=== PATIENT | female | born 1950 | race Caucasian/White ===

== ENCOUNTER 2017-04-25 04:52 | Inpatient (IN) | payer MEDICAID, SELFPAY ==
[2017-04-25] VITALS (31 sets, daily range): BP systolic 107–151; BP diastolic 52–99; PULSE 84–102; RESP 18–32; TEMP 36.8–37.8; O2SAT 93–100; BMI 28.0; BMI 27.8; BMI 27.9
--- NOTE | 2017-04-25 05:05 | EKG12_ITS ---
Test Reason : CP Blood Pressure : / mmHG Vent. Rate : 098 BPM Atrial Rate : 098 BPM P-R Int : 132 ms QRS Dur : 098 ms QT Int : 354 ms P-R-T Axes : 024 020 049 degrees QTc Int : 451 ms Sinus rhythm with Premature supraventricular complexes and with occasional Premature ventricular comp lexes Nonspecific T wave abnormality Abnormal ECG Confirmed by EVA ANDRES ([id number]), copy editor CINDY KNUTSON ([id number] on 05/05/2017 1:36:09 PM Referred By: AL Confirmed By:EVA ANDRES
--- NOTE | 2017-04-25 05:05 | RAD_ITS ---
STUDY: X-RAY CHEST REASON FOR EXAM: Female, 66 years old. Increasing shortness of breath. Pedal edema. TECHNIQUE: AP portable chest. COMPARISON: None. FINDINGS: Mild to moderate cardiomegaly. Small bilateral pleural effusions. No focal infiltrates. No pneumothorax. Atherosclerotic calcification of the thoracic aorta. Pulmonary arteries are normal. Normal visualized thoracic spine. Normal visualized ribs, clavicles, and shoulders. There is no demonstrated abnormality of the visualized soft tissue structures of the upper abdomen. RAD/Chest 1 View (Portable) IMPRESSION: Cardiomegaly with small bilateral pleural effusions. Electronically Signed: Jorge Raya MD at 6:26 EST , Service support ,
--- NOTE | 2017-04-25 05:07 | ED.VISSUMM ---
- ER Visit Summary Date of Service: 04/25/17 Chief Complaint: [Weakness shortness of breath] History of Present Illness: The patient is a 66 F [who presents the emergency department with increasing weakness shortness of breath chest pain over the last year. She is also had increasing swelling in her extremities. She has not seen a doctor since 2004. Her sister states that she lives with her 87-year-old father and she has not left the house in the last 3 years. She believes her to be mentally incompetent how she ever she has not been able to get her declared as such. They could not get her to go to the doctor until this morning when she was very short of breath. She denies any bloody bowel movements or blood in the urine. She denies fevers or chills. She has been having exertional shortness of breath and chest pain for quite some time.] Physical Examination: [] Heart rate 102 respiratory rate 24 pulse ox 97% WN WD NAD PERRL EOMI pale conjunctive a MMM NECK supple and nontender, no masses Regular tachycardic rhythm no murmur rub or gallop, 2+ pitting edema of the lower extremities and 1+ pitting edema of the upper extremities, symmetric radial pulses CTAB no respiratory distress ABDOMEN is soft and nontender, normal bowel sounds, no distension, no rebound or guarding SKIN is warm and dry no rashes it is very pale Alert and Oriented x3, CN II-XII in tact, patient is diffusely weak No lymphadenopathy She has a flat affect Test Results: [] Emergency Department Course and Treatment: [Sinus rhythm with PVC no acute ischemic changes nonspecific ST-T wave changes. Hemoglobin is 3.2. Rectal shows no melena or bright red blood. Patient was typed and crossed for 4 units and ordered for 2 units of blood. Patient did have elevated TSH. She is very very weak. She will be admitted to the hospital for transfusion and workup of her anemia and treatment for her hypothyroid is does appear to be chronic as the symptoms have been worsening over the course of the year] Treatment Plan: [] Disposition: [Admit] Impression: [1. Chronic anemia 2. Hypothyroid 3. Weakness] This note was generated with [employer] software. It may contain incorrect words, spelling, and punctuation that were not noted in review of the chart prior to signing ED Disposition - Plan for ED Patient: Chief Complaint: Shortness of Breath
--- NOTE | 2017-04-25 05:08 | ED.RN ---
NO OLD EKG'S
--- NOTE | 2017-04-25 05:10 | ED.DCSUM_ITS ---
- ER Visit Summary Date of Service: 04/25/17 Chief Complaint: [Weakness shortness of breath] History of Present Illness: The patient is a 66 F [who presents the emergency department with increasing weakness shortness of breath chest pain over the last year. She is also had increasing swelling in her extremities. She has not seen a doctor since 2004. Her sister states that she lives with her 87-year -old father and she has not left the house in the last 3 years. She believes her to be mentally incompetent how she ever she has not been able to get her declared as such. They could not get her to go to the doctor until this morning when she was very short of breath. She denies any bloody bowel movements or blood in the urine. She denies fevers or chills. She has been having exertional shortness of breath and chest pain for quite some time.] Physical Examination: [] Heart rate 102 respiratory rate 24 pulse ox 97% WN WD NAD PERRL EOMI pale conjunctive a MMM NECK supple and nontender, no masses Regular tachycardic rhythm no murmur rub or gallop, 2+ pitting edema of the lower extremities and 1+ pitting edema of the upper extremities, symmetric radial pulses CTAB no respiratory distress ABDOMEN is soft and nontender, normal bowel sounds, no distension, no rebound or guarding SKIN is warm and dry no rashes it is very pale Alert and Oriented x3, CN II-XII in tact, patient is diffusely weak No lymphadenopathy She has a flat affect Test Results: [] Emergency Department Course and Treatment: [Sinus rhythm with PVC no acute ischemic changes nonspecific ST-T wave changes. Hemoglobin is 3.2. Rectal shows no melena or bright red blood. Patient was typed and crossed for 4 units and ordered for 2 units of blood. Patient did have elevated TSH. She is very very weak. She will be admitted to the hospital for transfusion and workup of her anemia and treatment for her hypothyroid is does appear to be chronic as the symptoms have been worsening over the course of the year] Treatment Plan: [] Disposition: [Admit] Impression: [1. Chronic anemia 2. Hypothyroid 3. Weakness] This note was generated with [employer] software. It may contain incorrect words, spelling, and punctuation that were not noted in review of the chart prior to signing ED Disposition - Plan for ED Patient: Chief Complaint: Shortness of Breath
--- NOTE | 2017-04-25 05:56 | ED.RN ---
DR TOLENTINO NOTIFIED OF HGB RESULTS
[2017-04-25 05:57] LABS: Hematocrit 12.3 % (37-47); Mean Corpuscular Volume 76.9 fL (81-99); Mean Platelet Vol. 8.7 fl (6.2-12.0); Neutrophil % 86.3 % (47-70); Platelet Count 396 K/mm3 (150-450); RBC Distribution Width CV 23.6 % (11.6-14.6); RBC Distribution Width SD 54.6 fl (35.1-43.9); White Blood Count 7.4 K/mm3 (4.4-11.0)
[2017-04-25 05:58] LABS: Absolute Lymphocyte Count 0.57 X10^3/ul (0.83-4.51); Absolute Neutrophil Count 6.4 X10^3/uL (2.0-7.7); Basophil# 0.01 X10^3/uL; Basophil% 0.1 % (0-1); Differential Indicated SCAN CRITERIA MET; Eosinophil# 0.04 X10^3/uL; Eosinophils% 0.5 % (0-5); Hemoglobin 3.2 g/dl (12.0-15.0); Lymphocyte # 0.57 X10^3/ul (4.0); Lymphocyte % 7.7 % (19-41); Monocyte# 0.39 X10^3/uL; Monocyte% 5.3 % (0-10); POSITIVE COUNT YES; POSITIVE DIFFERENTIAL YES; POSITIVE MORPHOLOGY YES
[2017-04-25 06:00] LABS: Bacteria 0 SEEN /hpf (None Seen); Mucous, Urine 0 SEEN /hpf (<or=2+); Red Blood Cells-Urine 0 SEEN /hpf (0-5); Squamous Epithelial Cells - UA 0 SEEN /hpf (5-10)
[2017-04-25 06:02] LABS: Color, Urine Yellow (Yellow); Glucose, Dipstick Normal (Normal); Ketone-Dipstick Negative (Negative); Leukocyte Esterase-Dipstick Negative /ul (Negative); Nitrite-Dipstick Negative (Negative); Occult Blood-Urine Negative /ul (Negative); Protein-Dipstick Negative (Negative); Specific Gravity, Urine 1.015 (1.002-1.030); Urine Bilirubin Dipstick Negative (Negative); Urine Clarity Clear (Clear); Urine Urobilinogen Normal (Normal)
--- NOTE | 2017-04-25 06:07 | ED.RN ---
PAGED DR. DORAN
[2017-04-25 06:17] LABS: International Normalized Ratio 1.6; Prothrombin Time (Protime)PT. 18.3 SECONDS (11.7-14.9)
[2017-04-25 06:21] LABS: White Blood Cells 0-5 SEEN /hpf (0-5)
[2017-04-25 06:22] LABS: Amorphous Sediment 2+
--- NOTE | 2017-04-25 06:29 | ED.RN ---
PCU SEVERE SYMPTOMATIC ANEMIA ESPINOZA
[2017-04-25 06:32] LABS: ALB/GLOB Ratio 0.9 RATIO (0.9-2.4); AST(SGOT) 19 U/L (15-37); Alanine Aminotransfer ALT/SGPT 29 U/L (12-78); Albumin, Serum 2.9 g/dL (3.4-5.0); Alkaline Phosphatase 115 U/L (45-117); Anion Gap 11 (5-15); BUN 23 mg/dL (7-18); BUN/Creat Ratio 21.3 RATIO (10-20); Calcium,Total 7.5 mg/dL (8.5-10.1); Chloride 109 mmol/L (98-107); Creatinine, Serum 1.08 mg/dL (0.55-1.02); EST Glomerular Filtration Rate 54 mL/min (>60); Est Glom Filt Rate - Afr Amer 65 mL/min (>60); Estimated Creatinine Clearance 49.83 ml/min; Globulin 3.2 g/dL (2.2-4.2); Glucose 102 mg/dL (70-110); Potassium 3.8 mmol/L (3.5-5.1); Protein, Total 6.1 g/dL (6.4-8.2); Sodium Level 140 mmol/L (136-145); Thyroid Stim Hormone (TSH) 8.74 uIU/mL (0.358-3.74)
[2017-04-25 07:06] LABS: Absolute Nucleated RBC Count 0.13 10^3/uL (0-5); Anisocytosis 2+; Differential Comment SCANNED; Hypochromasia 3+; NRBC Flagged by Analyzer 1.8 % (0-5); Platelet Estimate ADEQUATE (ADEQ); Platelet Morphology LARGE
--- NOTE | 2017-04-25 07:10 | PCM.HP.STD ---
Problem List (1) CHF (congestive heart failure) Status: Acute Qualifiers: Congestive heart failure type: systolic (2) Severe anemia Status: Chronic (3) Coagulopathy Status: Acute (4) Elevated TSH Status: Acute Comment: With a normal T4 (5) Iron deficiency Status: Chronic (6) Cardiomyopathy Status: Acute (7) Biatrial enlargement Status: Chronic Comment: Mild (8) Pulmonary hypertension Status: Acute Comment: Pulmonary artery systolic pressure estimated at 56.... (9) Tricuspid regurgitation Status: Acute Qualifiers: Cardiac valve disease etiology: nonrheumatic Qualified Code(s): I36.1 - Nonrheumatic tricuspid (valve) insufficiency (10) Mitral regurgitation Status: Acute Qualifiers: Cardiac valve disease etiology: nonrheumatic Qualified Code(s): I34.0 - Nonrheumatic mitral (valve) insufficiency History of Present Illness Date of Admission: 04/25/17 Chief Complaint: SOB/CP The patient is a 66 year old F who presented to the emergency department at [facility] on 04/25/2017 with complaints of increased weakness, shortness of breath and chest pain. The symptoms have been present for at least one year. She additionally complained of increased swelling in her extremities. She has not seen a doctor since 2004 and has never been admitted to [facility]. Her sister accompanied her and stated that the patient lives with her 87-year-old father and has not left the house in the past 3 years. She believes her to be mentally incompetent but has not been able to get her declared as such. She only agreed to go to the doctor because she was extremely short of breath. Vital signs at presentation to the emergency room were temp 98.3, blood pressure 134/73, pulse rate 98, respiratory rate 26 and she was 100% saturated on room air. Significant lab included a hemoglobin of 3.2 with an MCV of 76.9. White blood cell count was within normal limits. Reticulocyte count is not increased. PT was 18.3 with an INR of 1.6. Serum bicarb is low at 20 and the BUN was 23 with a creatinine of 1.08. TSH is 8.74. UA had 0-5 WBCs with no bacteria. Chest x-ray showed cardiomegaly with small bilateral pleural effusions. She denies hematemesis, rectal bleeding, large bruises, history of peptic ulcer disease. Also denies nausea. She does admit to pain in the right upper quadrant which has been present for quite some time. She states her stool is not normal but she denies having any black tarry stool. She has never had a colonoscopy. She denies weight loss. There is no family history of colon cancer. There is an extensive family history of cardiovascular disease. She states that she has chronic chest discomfort that does seem to get worse when she walks. Shortness of breath also increases with activity. 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 HISTORIC PRESERVATIONIST History: No pertinent HISTORIC PRESERVATIONIST history, - - She had menopause in her late 40s and has had no vaginal bleeding for several years. Lives: With Family Smoking Status: Never smoker Tobacco Use: Non-smoker Alcohol: None Drugs: None - *Family History Maternal History Items: Heart Disease Paternal History Items: Heart Disease Review of Systems Constitutional: Reports: - - She often feels cold. Denies: Chills, Fever, Weight Change Eyes: Denies: Blurred vision, Redness HEENT: Reports: Head Aches. Denies: Sinus Congestion, Sinus Drainage Cardiovascular: Reports: Chest Pain, Edema, Light Headedness, Paroxysmal Noc. Dyspnea Respiratory: Reports: Shortness of Breath, Shortness of breath at rest, Shortness of breath upon exertion. Denies: Cough, Hemoptysis Gastrointestinal: Reports: Abdominal Pain - Midepigastric to right upper quadrant, - - States her stool has changed but cannot further characterize. Denies: Diarrhea, Hematemesis, Hematochezia, Nausea, Melena, Vomiting Genitourinary: Denies: Dysuria Gynecological: Denies: Vaginal bleeding, Vaginal discharge Musculoskeletal: Reports: Arm Pain Skin: Denies: Rash, Wounds Neurological: Denies: Numbness, Tingling, Focal weakness Psychiatric: Denies: Anxiety, Depression, Homicidal Ideations, Suicidal Ideations Endocrine: Denies: Hx of Thyroiditis Hematologic/ Lymphatic: Denies: Hx of blood clot VTE Information - Inpt Only VTE Present on Admission: No VTE Mechan Device Prophylaxis: SCD's, Knee High LADARIUS Hose VTE Pharm Prophylaxis ordered?: No Reason prophylaxis not ordered:: Medical Contraindication - Severe anemia with coagulopathy Patient Problems: Active and Suspected Problems CHF (congestive heart failure) (Acute) Coagulopathy (Acute) Elevated TSH (Acute) With a normal T4 Cardiomyopathy (Acute) Pulmonary hypertension (Acute) Pulmonary artery systolic pressure estimated at 56.... Tricuspid regurgitation (Acute) Mitral regurgitation (Acute) - Physical Exam General: Alert, Oriented x3, Cooperative, No apparent distress, - - She is very pale HEENT: Atraumatic, PERRLA, EOMI, Normocephalic Oral: Moist Mucosa Neck: No Nodes, No Nuchal Rigidity, Trachea Midline, Carotid Bruit, Right, JVD, Bilateral Lungs: No rhonchi, No wheeze, Rales - She has rales in the left base and diminished breath sounds in the right base Cardiovascular: Regular rate, Regular Rhythm, Normal S1, Normal S2, Murmur - There is a 2/6 systolic murmur at the second right intercostal space radiating to the left ventricular outflow tract. She has a systolic murmur at the lower left sternal border and apex. There is a loud systolic MM in the left axillary area. Abdomen: Bowel Sounds Present - Not hyperactive, Soft, Non-Distended, Tender Extremities: No clubbing, No cyanosis, No Calf Tenderness, Diminished Peripheral Pulses, Edema Skin: No rashes, - - She has a resolving area of bruising on the right cheek. Musculoskeletal: No Muscle Wasting Neurological: Cranial nerves II-XII grossly intact, Neuro grossly intact, - - No focal neurologic deficits Psych/Mental Status: Normal Affect, Appropriate Vital Signs Temp Pulse Resp BP Pulse Ox 98.3 F 89 24 H 129/71 H 97 04/25/17 04:53 04/25/17 06:26 04/25/17 06:26 04/25/17 06:26 04/25/17 06:26 Assessment/Plan Active and Suspected Problems CHF (congestive heart failure) (Acute) Coagulopathy (Acute) Elevated TSH (Acute) With a normal T4 Cardiomyopathy (Acute) Pulmonary hypertension (Acute) Pulmonary artery systolic pressure estimated at 56.... Tricuspid regurgitation (Acute) Mitral regurgitation (Acute) Impressions 1. severe anemia - due to iron deficiency. Stool is Hemoccult negative 2. Acute systolic congestive heart failure. Echocardiogram shows a 47% ejection fraction. 3. 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 Reports that her mother always hid things and swept them under the carpet. When her mother 12 years ago everything escalated. May need placed in ECF. 4. Coagulopathy with a PT of 18.3 5. Elevated creatinine with a estimated creatinine clearance of 49 and GFR of 48-54. 6. MR, TR, moderate pulmonary hypertension, mild biatrial enlargement 7. Increased TSH with a normal T4 Transfuse to a HCT of at least 27. Lasix 40 mg IV every 8 hours Recheck a H&H and BMP 1 hour after the third unit of packed red blood cells has been administered Vitamin K 10 mg subcu Start sertraline 50 mg daily for anxiety/depression/suspected PTSD Start Aldactone 25 mg p.o. daily and lisinopril 2.5 mg twice daily Daily weights and accurate intake and output Recheck lab in the a.m. She is going to need endoscopy both upper and lower determine the source of chronic blood loss Consult Dr. Boone to participate in management Code Visit Inpatient E&M: [id number] Init Hosp L3
--- NOTE | 2017-04-25 07:54 | CON.PCM_ITS ---
Reason for Consult Date of Consultation: 04/25/17 Reason for Consultation: Blood loss anemia History of Present Illness: The patient is a 66-year-old female, with a history as outlined below, who presented to the emergency department on April 25 with generalized malaise, weakness and dyspnea. The patient has been lost to routine regular medical follow-up. She has essentially been a recluse, refusing to leave the home in which she resides for 3 years. The patient has no known prior cardiac history. She does not appear to be on any baseline medications as an outpatient. The patient's presenting symptoms have progressed over the course of the last year, which is the only reason why she agreed to come to the hospital for evaluation. On presentation to the emergency department, the patient was noted to be afebrile hemodynamically stable. She was maintaining appropriate oxygen saturations on room air. Initial laboratory evaluation revealed no evidence of a leukocytosis. However, the patient did have a notable hemoglobin and hematocrit of 3.2 and 12.3, respectively. Red blood cell indices were microcytic in nature. Chemistry profile revealed an elevated creatinine to 1.08. Troponin was negative. The patient did have an elevated BNP to 3463. TSH was elevated to 8.74 with a normal free T4 noted. Urinalysis was unremarkable. The patient underwent a type and screen with plans to transfuse packed red blood cells. She was subsequently admitted to the medical intensive care unit for ongoing management. Past Medical History Past Medical History (Chronic Problems): Chronic Problems Severe anemia (Chronic) Iron deficiency (Chronic) Biatrial enlargement (Chronic) Mild Allergies No Known Allergies Allergy (Verified 04/25/17 05:02) Home Medications: Ambulatory Orders Medication Instructions Recorded NK [NK] 04/25/17 Smoking Status: Never smoker - *Family History Maternal History Items: Heart Disease Paternal History Items: Heart Disease Review of Systems Constitutional: Reports: Malaise, Weakness, Fatigue Eyes: Denies: Blurred vision, Double vision HEENT: Denies: Head Aches, Sinus Congestion, Sinus Drainage Cardiovascular: Reports: Chest Pain, Edema Respiratory: Reports: Shortness of Breath. Denies: Cough, Sputum production Gastrointestinal: Reports: Abdominal Pain Genitourinary: Denies: Dysuria Musculoskeletal: Denies: Joint Pain, Joint Tenderness Skin: Denies: Rash, Wounds Neurological: Denies: Numbness, Tingling, Focal weakness Psychiatric: Denies: Anxiety, Depression, Homicidal Ideations, Suicidal Ideations Hematologic/ Lymphatic: Reports: Anemia. Denies: Easy Bruising, Easy Bleeding Patient Problems: Active and Suspected Problems CHF (congestive heart failure) (Acute) Coagulopathy (Acute) Elevated TSH (Acute) With a normal T4 Cardiomyopathy (Acute) Pulmonary hypertension (Acute) Pulmonary artery systolic pressure estimated at 56.... Tricuspid regurgitation (Acute) Mitral regurgitation (Acute) Objective: The patient's most recent lab work, culture data and imaging studies have all been personally reviewed. - Physical Exam General: Alert, Cooperative, No apparent distress, - - Pale in appearance. HEENT: Atraumatic, PERRLA, Normocephalic Oral: Moist Mucosa Neck: Supple, No Nodes, JVD, Bilateral Lungs: No rhonchi, No wheeze, Diminished, Rales Cardiovascular: Regular rate, Regular Rhythm, Normal S1, Normal S2, Murmur Abdomen: Bowel Sounds Present, Soft, Non-Distended, Tender Extremities: No clubbing, No cyanosis, Diminished Peripheral Pulses, Edema Skin: No rashes, No breakdown Musculoskeletal: No Tenderness to Palpation of Joints or Extremities Lymphatic: No Cervical, Supraclavicular, or Inguinal Adenopathy Neurological: Neuro grossly intact Vital Signs Temp Pulse Resp BP Pulse Ox 99.0 F 93 20 H 143/82 H 95 04/25/17 07:31 04/25/17 07:31 04/25/17 07:31 04/25/17 07:31 04/25/17 07:31 Oxygen Delivery Method Room Air Weight: 167 lb 8.821 oz Body Mass Index (BMI) 27.8 Laboratory Tests Past 24 Hrs 04/25/17 07:25 MRSA (PCR) Pending Labs (Last 48 Hours) 04/25/17 04/25/17 04/25/17 05:15 05:15 05:15 WBC 7.4 RBC 1.60 L Hgb 3.2 L* Hct 12.3 L MCV 76.9 L MCH 20.0 L MCHC 26.0 L RDW 23.6 H RDW Differential 54.6 H Plt Count 396 MPV 8.7 Immature Gran % (Auto) 0.100 Neut % (Auto) 86.3 H Lymph % (Auto) 7.7 L [place] % (Auto) 5.3 Eos % (Auto) 0.5 Baso % (Auto) 0.1 Absolute Neuts (auto) 6.4 Absolute Lymphs (auto) 0.57 L Total Counted Not Reportable Nucleated RBC % 1.8 Differential Comment SCANNED Diff Path Review May foll Platelet Estimate ADEQUATE Plt Morphology Comment LARGE Hypochromasia 3+ Anisocytosis 2+ Absolute Retic 0.13 PT 18.3 H INR 1.6 Sodium 140 Potassium 3.8 Chloride 109 H Carbon Dioxide 20.0 L Anion Gap 11 BUN 23 H Creatinine 1.08 H Estim Creat Clear Calc 49.83 Est GFR (MDRD) Af Amer 65 Est GFR (MDRD) Non-Af 54 L BUN/Creatinine Ratio 21.3 H Glucose 102 Calcium 7.5 L Phosphorus Magnesium Iron TIBC Iron Saturation Ferritin Total Bilirubin 0.70 AST 19 ALT 29 Alkaline Phosphatase 115 Troponin I 0.05 B-Natriuretic Peptide Total Protein 6.1 L Albumin 2.9 L Globulin 3.2 Albumin/Globulin Ratio 0.9 Vitamin B12 Folate TSH 8.74 H Free T4 Urine Color Urine Clarity Urine pH Ur Specific [place] Urine Protein Urine Glucose (UA) Urine Ketones Urine Occult Blood Urine Nitrite Urine Bilirubin Urine Urobilinogen Ur Leukocyte Esterase Urine RBC Urine WBC Ur Squamous Epith Cells Amorphous Sediment Urine Bacteria Urine Mucus MRSA (PCR) Blood Type Antibody Screen Crossmatch 04/25/17 04/25/17 04/25/17 05:15 05:54 07:25 WBC RBC Hgb Hct MCV MCH MCHC RDW RDW Differential Plt Count MPV Immature Gran % (Auto) Neut % (Auto) Lymph % (Auto) [place] % (Auto) Eos % (Auto) Baso % (Auto) Absolute Neuts (auto) Absolute Lymphs (auto) Total Counted Nucleated RBC % Differential Comment Diff Path Review Platelet Estimate Plt Morphology Comment Hypochromasia Anisocytosis Absolute Retic PT INR Sodium Potassium Chloride Carbon Dioxide Anion Gap BUN Creatinine Estim Creat Clear Calc Est GFR (MDRD) Af Amer Est GFR (MDRD) Non-Af BUN/Creatinine Ratio Glucose Calcium Phosphorus Magnesium Iron TIBC Iron Saturation Ferritin Total Bilirubin AST ALT Alkaline Phosphatase Troponin I B-Natriuretic Peptide Total Protein Albumin Globulin Albumin/Globulin Ratio Vitamin B12 Folate TSH Free T4 Urine Color Yellow Urine Clarity Clear Urine pH 5.0 Ur Specific [place] 1.015 Urine Protein Negative Urine Glucose (UA) Normal Urine Ketones Negative Urine Occult Blood Negative Urine Nitrite Negative Urine Bilirubin Negative Urine Urobilinogen Normal Ur Leukocyte Esterase Negative Urine RBC 0 SEEN Urine WBC 0-5 SEEN Ur Squamous Epith Cells 0 SEEN Amorphous Sediment 2+ Urine Bacteria 0 SEEN Urine Mucus 0 SEEN MRSA (PCR) Negative Blood Type O POSITIVE Antibody Screen NEGATIVE Crossmatch See Detail 04/25/17 04/25/17 04/25/17 07:55 07:55 07:55 WBC RBC Hgb Hct MCV MCH MCHC RDW RDW Differential Plt Count MPV Immature Gran % (Auto) Neut % (Auto) Lymph % (Auto) [place] % (Auto) Eos % (Auto) Baso % (Auto) Absolute Neuts (auto) Absolute Lymphs (auto) Total Counted Nucleated RBC % Differential Comment Diff Path Review Platelet Estimate Plt Morphology Comment Hypochromasia Anisocytosis Absolute Retic PT INR Sodium Potassium Chloride Carbon Dioxide Anion Gap BUN Creatinine Estim Creat Clear Calc Est GFR (MDRD) Af Amer Est GFR (MDRD) Non-Af BUN/Creatinine Ratio Glucose Calcium Phosphorus Magnesium 2.2 Iron 12 L TIBC 315 Iron Saturation 3.8 L Ferritin 6 L Total Bilirubin AST ALT Alkaline Phosphatase Troponin I 0.04 B-Natriuretic Peptide Total Protein Albumin Globulin Albumin/Globulin Ratio Vitamin B12 637 Folate 10.80 TSH Free T4 1.24 Urine Color Urine Clarity Urine pH Ur Specific [place] Urine Protein Urine Glucose (UA) Urine Ketones Urine Occult Blood Urine Nitrite Urine Bilirubin Urine Urobilinogen Ur Leukocyte Esterase Urine RBC Urine WBC Ur Squamous Epith Cells Amorphous Sediment Urine Bacteria Urine Mucus MRSA (PCR) Blood Type Antibody Screen Crossmatch 04/25/17 04/25/17 07:55 08:10 WBC RBC Hgb Hct MCV MCH MCHC RDW RDW Differential Plt Count MPV Immature Gran % (Auto) Neut % (Auto) Lymph % (Auto) [place] % (Auto) Eos % (Auto) Baso % (Auto) Absolute Neuts (auto) Absolute Lymphs (auto) Total Counted Nucleated RBC % Differential Comment Diff Path Review Platelet Estimate Plt Morphology Comment Hypochromasia Anisocytosis Absolute Retic PT INR Sodium Potassium Chloride Carbon Dioxide Anion Gap BUN Creatinine Estim Creat Clear Calc Est GFR (MDRD) Af Amer Est GFR (MDRD) Non-Af BUN/Creatinine Ratio Glucose Calcium Phosphorus 2.5 Magnesium Iron TIBC Iron Saturation Ferritin Total Bilirubin AST ALT Alkaline Phosphatase Troponin I B-Natriuretic Peptide 3463.3 H Total Protein Albumin Globulin Albumin/Globulin Ratio Vitamin B12 Folate TSH Free T4 Urine Color Urine Clarity Urine pH Ur Specific [place] Urine Protein Urine Glucose (UA) Urine Ketones Urine Occult Blood Urine Nitrite Urine Bilirubin Urine Urobilinogen Ur Leukocyte Esterase Urine RBC Urine WBC Ur Squamous Epith Cells Amorphous Sediment Urine Bacteria Urine Mucus MRSA (PCR) Blood Type Antibody Screen Crossmatch Microbiology 04/25/17 06:10 Stool Stool Occult Blood (OSORIO) - Final Clinical Impression(s) from Imaging Studies Chest X-Ray 04/25/17 05:05 IMPRESSION: Cardiomegaly with small bilateral pleural effusions. Electronically Signed: Jorge Raya MD at 6:26 EST , Service support , Assessment/Plan Active and Suspected Problems CHF (congestive heart failure) (Acute) Coagulopathy (Acute) Elevated TSH (Acute) With a normal T4 Cardiomyopathy (Acute) Pulmonary hypertension (Acute) Pulmonary artery systolic pressure estimated at 56.... Tricuspid regurgitation (Acute) Mitral regurgitation (Acute) RECOMMENDATIONS: 1. Transfuse packed red blood cells as ordered. Check CBC post transfusion. 2. Maintain appropriate IV access. 3. Agree with Lasix administration 4. Echocardiogram is pending 5. Encourage incentive spirometer use while in bed 6. Mobilize patient as tolerated. Physical therapy evaluation. IMPRESSIONS: 1. Iron deficiency anemia Potentially related to GI losses, likely chronic in nature. The patient has remained hemodynamically stable. There are plans to transfuse packed red blood cells accordingly. CBC will check posttransfusion. Outpatient GI follow-up will likely be indicated. Start Protonix p.o. daily 2. Concern for underlying decompensated heart failure The patient had a significantly elevated BNP and physical exam findings concerning for heart failure. She will be continued on Lasix in hopes of volume optimization. Echocardiogram will be obtained. 3. Suspected intellectual disability/mental health disorder The patient was started on sertraline. Will defer management to hospitalist. This note was generated with [employer] dictation software. It may contain incorrect words, spelling, and punctuation that were not noted in checking the note before signing. Code Visit Inpatient E&M: 43149 Init Hosp L3
--- NOTE | 2017-04-25 07:58 | ECHOD_ITS ---
Reason For Study: CHF Procedure This was a 2D Doppler, Color Flow transthoracic echocardiogram. Exam performed portable in ICU/CCU. Left Ventricle Normal LV size. Mild eccentric left ventricular hypertrophy. Mild global left ventricular systolic dysfunction. The estimated ejection fraction is 47 %. Right Ventricle Normal RV size. Normal systolic function. Atria The left atrium is mildly enlarged. The right atrium is mildly enlarged. Mitral Valve Normal mitral valve. Mild (1+) eccentric mitral valve insufficiency. Tricuspid Valve Normal tricuspid valve. Pulmonary artery systolic pressure is 56 mmHg. Moderate pulmonary hypertension. Mild to moderate (1-2+) tricuspid valve insufficiency. Aortic Valve Normal aortic valve. Trisinus/trileaflet aortic valve. Pulmonic Valve Normal pulmonic valve. Great Vessels Normal aortic root. The pulmonary artery is normal size. Normal inferior vena cava. Inferior vena cava collapse with sniff. Pericardium/Pleural Small pericardial effusion. There are no echocardiographic indications of cardiac tamponade. MMode/2D Measurements & Calculations LVIDd: 6.0 cm IVSd: 1.1 cm Ao root diam: 2.5 cm LVIDs: 5.2 cm LVPWd: 1.1 cm LA dimension: 3.9 cm RVDd: 3.8 cm FS: 14.0 % LAV(MOD-bp): 75.1 ml Aortic Valve Planimetry: 2.0 cm2 LA A4 area: 24.4 cm2 LAV(MOD-bp) Indexed: 41.0 ml/m2 LAV(MOD-sp2): 74.0 ml LAV(MOD-sp4): 75.0 ml RA A4 area: 25.5 cm2 Time Measurements MV dec time: 0.29 sec Doppler Measurements & Calculations MV E max naveed: 151.6 cm/sec MV V2 max: 188.8 cm/sec MV P1/2t max naveed: 190.0 cm/sec MV A max naveed: 127.0 cm/sec MV max P.3 mmHg MV P1/2t: 85.6 msec MV E/A: 1.2 MV V2 mean: 127.3 cm/sec MV dec slope: 650.5 cm/sec2 MV mean P.2 mmHg MVA(P1/2t): 2.6 cm2 MV V2 VTI: 47.7 cm Ao V2 max: 260.7 cm/sec LV V1 max: 174.1 cm/sec PA V2 max: 161.8 cm/sec Ao max P.2 mmHg LV V1 max P.1 mmHg Ao V2 mean: 177.2 cm/sec LV V1 mean P.4 mmHg Ao mean P.1 mmHg LV V1 mean: 105.5 cm/sec Ao V2 VTI: 42.4 cm LV V1 VTI: 29.7 cm TR max naveed: 358.9 cm/sec TR max P.5 mmHg Interpretation Summary Normal LV size. Mild global left ventricular systolic dysfunction. The estimated ejection fraction is 47 %. The left atrium is mildly enlarged. The right atrium is mildly enlarged. Mild (1+) eccentric mitral valve insufficiency. Mild to moderate (1-2+) tricuspid valve insufficiency. Moderate pulmonary hypertension. Small pericardial effusion. There are no echocardiographic indications of cardiac tamponade. Ordering Physician: Kym Brooke Referring Physician: Shira PCP Performed By: Tyler Mcgraw RCS
[2017-04-25] MEDS: Furosemide 40 MG/4 ML Vial IV ×3 (08:05→21:11)
[2017-04-25 08:40] LABS: Ferritin 6 ng/mL (8-252); Iron 12 ug/dL (50-170); Iron Binding Capacity,Total 315 ug/dL (250-450); Magnesium 2.2 mg/dL (1.8-2.4); PERCENT IRON SATURATION 3.8 % (15.0-55.0); T4 Free Direct 1.24 ng/dL (0.76-1.46)
[2017-04-25 08:42] LABS: Vitamin B12 637 pg/mL (211-911)
[2017-04-25 08:43] LABS: Phosphorus 2.5 mg/dL (2.5-4.9)
[2017-04-25] MEDS: Phytonadione (Vit K) 10 MG/ML Ampul SC (09:42)
[2017-04-25 09:50] LABS: M R Staph aureus DNA By PCR Negative (Negative); Probe Check PASS; Specimen Processing Control PASS
[2017-04-25] MEDS: Lisinopril 2.5 MG Tablet PO ×2 (12:37→21:12)
[2017-04-25] MEDS: Spironolactone 25 MG Tablet PO (12:37)
[2017-04-25] MEDS: 0.9% NaCl Peripheral Flush Adult/Peds IV ×2 (12:37→12:39)
[2017-04-25 12:53] LABS: Pathologist Review Reviewed
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
[2017-04-25] MEDS: Sertraline 50 MG Tablet PO (16:25)
[2017-04-25 18:40] LABS: Hematocrit 22.7 % (37-47); Hemoglobin 6.9 g/dl (12.0-15.0)
[2017-04-25 18:56] LABS: Anion Gap 9 (5-15); BUN 26 mg/dL (7-18); BUN/Creat Ratio 21.8 RATIO (10-20); Calcium,Total 7.6 mg/dL (8.5-10.1); Chloride 112 mmol/L (98-107); Creatinine, Serum 1.19 mg/dL (0.55-1.02); EST Glomerular Filtration Rate 48 mL/min (>60); Est Glom Filt Rate - Afr Amer 58 mL/min (>60); Estimated Creatinine Clearance 41.85 ml/min; Glucose 136 mg/dL (70-110); Potassium 3.6 mmol/L (3.5-5.1); Sodium Level 144 mmol/L (136-145)
[2017-04-25] MEDS: Acetaminophen 325 MG Tablet 650 MG PO (21:11)
[2017-04-26] VITALS (22 sets, daily range): BP systolic 100–139; BP diastolic 52–94; PULSE 53–92; RESP 15–26; TEMP 36.9–37.6; O2SAT 93–95
--- NOTE | 2017-04-26 04:57 | PCM.PN.INT ---
Subjective: The patient was seen and examined at the bedside this morning. Events from the last 24 hours have been reviewed. The patient is currently afebrile, hemodynamically stable and maintaining appropriate oxygen saturations on room air. The patient has received a total of 5 units of packed red blood cells to date. Repeat hemoglobin this morning was 8.8. Potassium is on the low side at 3.5. Phosphorus is also low at 2.4. The patient remains on IV Lasix 40 mg every 8 hours. Patient was overall net -340 mL's yesterday. She does report interval improvement in her breathing quality. She endorses only a mild degree of abdominal pain. Objective: The patient's most recent lab work, culture data and imaging studies have all been personally reviewed. Echocardiogram dated April 25 revealed mild global LV systolic dysfunction with an ejection fraction of 45%. Pulmonary artery systolic pressure was estimated to be 56 mmHg. Stool for occult blood was negative. Repeat plain film chest x-ray from this morning reveals largely unchanged from previous. General: Alert, Cooperative, No apparent distress HEENT: Atraumatic, PERRLA, Normocephalic Oral: Moist Mucosa Neck: Supple, No JVD, Trachea Midline Lungs: No rhonchi, No wheeze, Diminished, Rales Cardiovascular: Regular rate, Regular Rhythm, Normal S1, Normal S2, Murmur Abdomen: Bowel Sounds Present, Soft, Non Tender, Non-Distended Extremities: No clubbing, No cyanosis, Edema Skin: No rashes, No breakdown Lymphatic: No Cervical, Supraclavicular, or Inguinal Adenopathy Neurological: Neuro grossly intact Psych/Mental Status: Appropriate Vital Signs Temp Pulse Resp BP Pulse Ox 99.2 F H 90 23 H 131/90 H 93 04/26/17 02:00 04/26/17 02:00 04/26/17 02:00 04/26/17 02:00 04/26/17 02:00 Oxygen Delivery Method Room Air Weight: 167 lb 8.821 oz Body Mass Index (BMI) 27.8 Intake and Output for Last 24 Hours 04/24/17 04/25/17 04/26/17 23:59 23:59 23:59 Intake Total 2160 / 2160 960 / 960 Output Total 2500 / 2500 2500 / 2500 Balance -340 / -340 -1540 / -1540 Labs (Last 48 Hours) 04/25/17 04/25/17 04/25/17 07:25 07:55 07:55 Hgb Hct Sodium Potassium Chloride Carbon Dioxide Anion Gap BUN Creatinine Estim Creat Clear Calc Est GFR (MDRD) Af Amer Est GFR (MDRD) Non-Af BUN/Creatinine Ratio Glucose Calcium Phosphorus Magnesium Iron 12 L TIBC 315 Iron Saturation 3.8 L Ferritin 6 L Troponin I B-Natriuretic Peptide Vitamin B12 637 Folate 10.80 Free T4 1.24 MRSA (PCR) Negative 04/25/17 04/25/17 04/25/17 07:55 07:55 08:10 Hgb Hct Sodium Potassium Chloride Carbon Dioxide Anion Gap BUN Creatinine Estim Creat Clear Calc Est GFR (MDRD) Af Amer Est GFR (MDRD) Non-Af BUN/Creatinine Ratio Glucose Calcium Phosphorus 2.5 Magnesium 2.2 Iron TIBC Iron Saturation Ferritin Troponin I 0.04 B-Natriuretic Peptide 3463.3 H Vitamin B12 Folate Free T4 MRSA (PCR) 04/25/17 04/25/17 04/25/17 10:55 16:00 18:25 Hgb 6.9 L Hct 22.7 L Sodium Potassium Chloride Carbon Dioxide Anion Gap BUN Creatinine Estim Creat Clear Calc Est GFR (MDRD) Af Amer Est GFR (MDRD) Non-Af BUN/Creatinine Ratio Glucose Calcium Phosphorus Magnesium Iron TIBC Iron Saturation Ferritin Troponin I 0.05 0.04 B-Natriuretic Peptide Vitamin B12 Folate Free T4 MRSA (PCR) 04/25/17 04/25/17 18:25 18:35 Hgb Hct Sodium 144 Potassium 3.6 Chloride 112 H Carbon Dioxide 23.0 Anion Gap 9 BUN 26 H Creatinine 1.19 H Estim Creat Clear Calc 41.85 Est GFR (MDRD) Af Amer 58 L Est GFR (MDRD) Non-Af 48 L BUN/Creatinine Ratio 21.8 H Glucose 136 H Calcium 7.6 L Phosphorus Magnesium Iron TIBC Iron Saturation Ferritin Troponin I 0.05 B-Natriuretic Peptide Vitamin B12 Folate Free T4 MRSA (PCR) Clinical Impression(s) from Imaging Studies Chest X-Ray 04/25/17 05:05 IMPRESSION: Cardiomegaly with small bilateral pleural effusions. Electronically Signed: Jorge Raya MD at 6:26 EST , Service support , Assessment/Plan Active and Suspected Problems CHF (congestive heart failure) (Acute) Coagulopathy (Acute) Elevated TSH (Acute) With a normal T4 Cardiomyopathy (Acute) Pulmonary hypertension (Acute) Pulmonary artery systolic pressure estimated at 56.... Tricuspid regurgitation (Acute) Mitral regurgitation (Acute) RECOMMENDATIONS: 1. Monitor blood counts daily. No indication for transfusion at this time. Start iron repletion therapy 2. Maintain appropriate IV access. 3. Continue Lasix with plans to transition from IV to p.o. formulation 4. Encourage incentive spirometer use while in bed 5. Mobilize patient as tolerated. The patient is medically stable for physical therapy evaluation today. 6. Recommend disposition to ECF. 7. Continue PPI 8. Electrolyte repletion as indicated. 9. The patient is medically stable for transfer out of the ICU. IMPRESSIONS: 1. Iron deficiency anemia Potentially related to GI losses, likely chronic in nature. The patient has remained hemodynamically stable. To date, the patient has been transfused a total of 5 units of packed red blood cells. Appropriate incrementation in the patient's blood counts has been noted. Hemoglobin is noted to be 8.8 g/dL this morning. There is no indication for additional blood product administration at this time. Monitor CBC daily. Transfuse if hemoglobin drops below 7 g/dL. Would plan to continue the patient on empiric PPI. She will likely require outpatient GI follow-up. Start iron replacement therapy. 2. Decompensated systolic heart failure/pulmonary hypertension The patient had a significantly elevated BNP and physical exam findings concerning for heart failure. Echocardiogram confirmed evidence of underlying systolic dysfunction and pulmonary hypertension. She has been maintained on IV Lasix regimen over the last 24 hours. She is currently on room air. Would plan to transition the patient at this time to a p.o. Lasix regimen. 3. Hypokalemia/hypophosphatemia Electrolyte repletion is underway. Recheck level status post repletion. 4. Suspected intellectual disability/mental health disorder The patient was started on sertraline. Will defer management to hospitalist. This note was generated with [employer] dictation software. It may contain incorrect words, spelling, and punctuation that were not noted in checking the note before signing. Given the lack of ongoing ICU needs, will sign off. Please call with any additional questions. Code Visit Inpatient E&M: 58723 Subs Hosp L3
--- NOTE | 2017-04-26 05:55 | RAD_ITS ---
STUDY: X-RAY CHEST REASON FOR EXAM: Female, 66 years old. Shortness of breath. TECHNIQUE: Single AP portable view of the chest. COMPARISON: Comparison is made with prior study dated October 23, 2017. FINDINGS: EKG electrodes are seen. Persistent vascular congestion and mild CHF. Stable bibasilar atelectasis and/or infiltrates worse on the left side. Blunting of both costophrenic angles more prominent on the left side. There is moderate cardiac enlargement. Normal mediastinum and paulette. Normal visualized pulmonary arteries. There is atherosclerotic calcification of the aortic arch with tortuosity. There are diffuse degenerative changes of the visualized thoracic spine. Normal visualized ribs, clavicles, and shoulders. There is no demonstrated abnormality of the visualized soft tissue structures of the upper abdomen. RAD/Chest 1 View (Portable) IMPRESSION: Cardiomegaly. CHF. Bibasilar atelectasis and/or infiltrates worse at the left lung base with blunting of both costophrenic angles. There has been mild progression as compared to prior study. Electronically Signed: Duran Steven MD at 8:03 EST Tel [phone], Service support ,
[2017-04-26] MEDS: 0.9% NaCl Peripheral Flush Adult/Peds IV ×2 (06:41→08:48)
[2017-04-26] MEDS: Furosemide 40 MG/4 ML Vial IV ×2 (06:41→17:28)
[2017-04-26 07:07] LABS: Absolute Lymphocyte Count 0.61 X10^3/ul (0.83-4.51); Absolute Neutrophil Count 7.6 X10^3/uL (2.0-7.7); Basophil# 0.01 X10^3/uL; Basophil% 0.1 % (0-1); Eosinophil# 0.07 X10^3/uL; Eosinophils% 0.8 % (0-5); Hemoglobin 8.8 g/dl (12.0-15.0); International Normalized Ratio 1.5; Lymphocyte # 0.61 X10^3/ul (4.0); Lymphocyte % 6.9 % (19-41); Mean Corp Hgb Conc 31.4 g/gl (32-36); Mean Corpuscular Hgb 25.7 pg (27.0-32.0); Mean Corpuscular Volume 81.9 fL (81-99); Mean Platelet Vol. 9.4 fl (6.2-12.0); Monocyte# 0.56 X10^3/uL; Monocyte% 6.3 % (0-10); Neutrophil # 7.57 X10^3/uL (2.7-7.7); Neutrophil % 85.7 % (47-70); Platelet Count 284 K/mm3 (150-450); Prothrombin Time (Protime)PT. 17.1 SECONDS (11.7-14.9); RBC Distribution Width CV 18.4 % (11.6-14.6); RBC Distribution Width SD 55.1 fl (35.1-43.9); Red Blood Count 3.42 M/mm3 (4.2-5.4); White Blood Count 8.8 K/mm3 (4.4-11.0)
[2017-04-26 07:09] LABS: POSITIVE COUNT NO; POSITIVE DIFFERENTIAL NO; POSITIVE MORPHOLOGY NO
[2017-04-26 07:25] LABS: Anion Gap 9 (5-15); BUN 25 mg/dL (7-18); BUN/Creat Ratio 21.9 RATIO (10-20); Calcium,Total 7.1 mg/dL (8.5-10.1); Chloride 111 mmol/L (98-107); Cholesterol 67 mg/dL (200); Creatinine, Serum 1.14 mg/dL (0.55-1.02); EST Glomerular Filtration Rate 51 mL/min (>60); Est Glom Filt Rate - Afr Amer 61 mL/min (>60); Estimated Creatinine Clearance 43.68 ml/min; Glucose 98 mg/dL (70-110); High Density Lipoprotein 28 mg/dL; Phosphorus 2.4 mg/dL (2.5-4.9); Potassium 3.5 mmol/L (3.5-5.1); Sodium Level 144 mmol/L (136-145); Triglycerides 41 mg/dL; Very Low Density Lipoprotein 8 mg/dL (5-40)
--- NOTE | 2017-04-26 08:10 | PN_ITS ---
Patient Problems: Active and Suspected Problems CHF (congestive heart failure) (Acute) Coagulopathy (Acute) Elevated TSH (Acute) With a normal T4 Cardiomyopathy (Acute) Pulmonary hypertension (Acute) Pulmonary artery systolic pressure estimated at 56.... Tricuspid regurgitation (Acute) Mitral regurgitation (Acute) Subjective: All events of the past 24 hours of been reviewed. She was transfused with a total of 5 units of packed red blood cells since admission. Hemoglobin today is 8.8, up from 3.2 on 04/25/2017. T-max was 100.1?F on 04/25/2017. Current temp is 98.7. The low-grade elevation of temp is likely secondary to transfusions. Current blood pressure is 139/52 with a heart rate of 78 and she is 95% saturated on room air. Fluid balance since admission is Iron studies showed a low serum iron at 12 with a TIBC of 315 and a ferritin of 6. Phosphorus is low today at 2.4. Total cholesterol was 67 with an LDL of 31 and an HDL of 28. Echocardiogram showed mild global hypokinesis with an estimated ejection fraction of 47%. There was mild biatrial enlargement, +1 MR and 1-2+ TR. The PA pressure was estimated at 56 which is consistent with moderate pulmonary hypertension. The elevated pulmonary pressure may be secondary to the acute congestive heart failure. She states her shortness of breath is better today and the peripheral edema is certainly better. She is diuresing very well with Lasix. She denies dizziness/ lightheadedness, shortness of breath, chest pain. She is up in a chair and tolerating this well. Denies abdominal pain, nausea, diarrhea. Her headache from yesterday has resolved. Appetite is good. Patient states that she feels her father has dementia and thinks he needs a snf. She will consider assisted living and prefers to be somewhere where there are women her age. She denies ever being sexually abused. She will not tell me why she does not leave the house for the past 3 years. She says that she is depressed and tells me that with everything that is going on in the world depression is expected. - Physical Exam General: Alert, Oriented x3, Cooperative, No apparent distress, - - She has better color in her face today HEENT: Atraumatic, PERRLA, EOMI Oral: Moist Mucosa Neck: Supple, No JVD Lungs: Rales - in both bases.....better air exchange in the R base today but BS' s still diminished on the right compared to the left no wheezing Cardiovascular: Regular rate, Regular Rhythm, Normal S1, Normal S2, Murmur - softer today since she has been transfused.......likely the MR BENSON was louder due to anemia, No rub noted, No Gallop Abdomen: Bowel Sounds Present, Soft, Non Tender, Non-Distended Extremities: Edema - improving Skin: No rashes, No breakdown Neurological: Cranial nerves II-XII grossly intact, Neuro grossly intact Psych/Mental Status: Appropriate Vital Signs Temp Pulse Resp BP Pulse Ox 98.7 F 71 15 139/52 H 95 04/26/17 07:00 04/26/17 07:11 04/26/17 07:00 04/26/17 07:00 04/26/17 07:00 Oxygen Delivery Method Room Air Weight: 161 lb 6.054 oz Body Mass Index (BMI) 27.8 Intake and Output for Last 24 Hours 04/24/17 04/25/17 04/26/17 23:59 23:59 23:59 Intake Total 2160 / 2160 2485 / 2485 Output Total 2500 / 2500 4200 / 4200 Balance -340 / -340 -1715 / -1715 Laboratory Tests Past 24 Hrs 04/25/17 04/25/17 04/25/17 07:25 07:55 07:55 WBC RBC Hgb Hct MCV MCH MCHC RDW RDW Differential Plt Count MPV Immature Gran % (Auto) Neut % (Auto) Lymph % (Auto) Tyler % (Auto) Eos % (Auto) Baso % (Auto) Absolute Neuts (auto) Absolute Lymphs (auto) Total Counted PT INR Sodium Potassium Chloride Carbon Dioxide Anion Gap BUN Creatinine Estim Creat Clear Calc Est GFR (MDRD) Af Amer Est GFR (MDRD) Non-Af BUN/Creatinine Ratio Glucose Calcium Phosphorus Magnesium Iron 12 L TIBC 315 Iron Saturation 3.8 L Ferritin 6 L Troponin I B-Natriuretic Peptide Triglycerides Cholesterol LDL Cholesterol VLDL Cholesterol HDL Cholesterol Vitamin B12 637 Folate 10.80 Free T4 1.24 MRSA (PCR) Negative 04/25/17 04/25/17 04/25/17 07:55 07:55 08:10 WBC RBC Hgb Hct MCV MCH MCHC RDW RDW Differential Plt Count MPV Immature Gran % (Auto) Neut % (Auto) Lymph % (Auto) Tyler % (Auto) Eos % (Auto) Baso % (Auto) Absolute Neuts (auto) Absolute Lymphs (auto) Total Counted PT INR Sodium Potassium Chloride Carbon Dioxide Anion Gap BUN Creatinine Estim Creat Clear Calc Est GFR (MDRD) Af Amer Est GFR (MDRD) Non-Af BUN/Creatinine Ratio Glucose Calcium Phosphorus 2.5 Magnesium 2.2 Iron TIBC Iron Saturation Ferritin Troponin I 0.04 B-Natriuretic Peptide 3463.3 H Triglycerides Cholesterol LDL Cholesterol VLDL Cholesterol HDL Cholesterol Vitamin B12 Folate Free T4 MRSA (PCR) 04/25/17 04/25/17 04/25/17 10:55 16:00 18:25 WBC RBC Hgb 6.9 L Hct 22.7 L MCV MCH MCHC RDW RDW Differential Plt Count MPV Immature Gran % (Auto) Neut % (Auto) Lymph % (Auto) Tyler % (Auto) Eos % (Auto) Baso % (Auto) Absolute Neuts (auto) Absolute Lymphs (auto) Total Counted PT INR Sodium Potassium Chloride Carbon Dioxide Anion Gap BUN Creatinine Estim Creat Clear Calc Est GFR (MDRD) Af Amer Est GFR (MDRD) Non-Af BUN/Creatinine Ratio Glucose Calcium Phosphorus Magnesium Iron TIBC Iron Saturation Ferritin Troponin I 0.05 0.04 B-Natriuretic Peptide Triglycerides Cholesterol LDL Cholesterol VLDL Cholesterol HDL Cholesterol Vitamin B12 Folate Free T4 MRSA (PCR) 04/25/17 04/25/17 04/26/17 18:25 18:35 06:00 WBC 8.8 RBC 3.42 L Hgb 8.8 L Hct 28.0 L MCV 81.9 MCH 25.7 L MCHC 31.4 L RDW 18.4 H RDW Differential 55.1 H Plt Count 284 MPV 9.4 Immature Gran % (Auto) 0.200 Neut % (Auto) 85.7 H Lymph % (Auto) 6.9 L Tyler % (Auto) 6.3 Eos % (Auto) 0.8 Baso % (Auto) 0.1 Absolute Neuts (auto) 7.6 Absolute Lymphs (auto) 0.61 L Total Counted Not Reportable PT INR Sodium 144 Potassium 3.6 Chloride 112 H Carbon Dioxide 23.0 Anion Gap 9 BUN 26 H Creatinine 1.19 H Estim Creat Clear Calc 41.85 Est GFR (MDRD) Af Amer 58 L Est GFR (MDRD) Non-Af 48 L BUN/Creatinine Ratio 21.8 H Glucose 136 H Calcium 7.6 L Phosphorus Magnesium Iron TIBC Iron Saturation Ferritin Troponin I 0.05 B-Natriuretic Peptide Triglycerides Cholesterol LDL Cholesterol VLDL Cholesterol HDL Cholesterol Vitamin B12 Folate Free T4 MRSA (PCR) 04/26/17 04/26/17 06:00 06:00 WBC RBC Hgb Hct MCV MCH MCHC RDW RDW Differential Plt Count MPV Immature Gran % (Auto) Neut % (Auto) Lymph % (Auto) Tyler % (Auto) Eos % (Auto) Baso % (Auto) Absolute Neuts (auto) Absolute Lymphs (auto) Total Counted PT 17.1 H INR 1.5 Sodium 144 Potassium 3.5 Chloride 111 H Carbon Dioxide 24.0 Anion Gap 9 BUN 25 H Creatinine 1.14 H Estim Creat Clear Calc 43.68 Est GFR (MDRD) Af Amer 61 Est GFR (MDRD) Non-Af 51 L BUN/Creatinine Ratio 21.9 H Glucose 98 Calcium 7.1 L Phosphorus 2.4 L Magnesium 2.0 Iron TIBC Iron Saturation Ferritin Troponin I B-Natriuretic Peptide Triglycerides 41 Cholesterol 67 LDL Cholesterol 31 VLDL Cholesterol 8 HDL Cholesterol 28 L Vitamin B12 Folate Free T4 MRSA (PCR) Assessment/Plan Active and Suspected Problems CHF (congestive heart failure) (Acute) Coagulopathy (Acute) Elevated TSH (Acute) With a normal T4 Cardiomyopathy (Acute) Pulmonary hypertension (Acute) Pulmonary artery systolic pressure estimated at 56.... Tricuspid regurgitation (Acute) Mitral regurgitation (Acute) Impressions 1. severe anemia - due to iron deficiency. Stool is Hemoccult negative 2. Acute systolic congestive heart failure. Echocardiogram shows a 47% ejection fraction. 3. 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 Reports that her mother always hid things and swept them under the carpet. When her mother 12 years ago everything escalated. May need placed in ECF. 4. Coagulopathy with a PT of 18.3 somewhat better after vitamin K 5. Probable chronic renal failure stage III-suspect due to long-standing hypertension and noncompliance with medication 6. MR, TR, moderate pulmonary hypertension, mild biatrial enlargement 7. Increased TSH with a normal T4 8. Hypophosphatemia-supplementation ordered Will need a follow-up echocardiogram in 6 weeks following resolution of congestive heart failure to reassess for pulmonary hypertension Will need upper and lower endoscopy. Patient is agreeable to having Dr. Vesta Quintero perform endoscopy. Will consult Dr. Quintero. Start an iron supplement Recheck lab in the a.m. Transfer to [facility] today-no need for telemetry as she has had no significant ectopy even with very severe anemia. Continue Lasix 40 mg IV every 12 hours Continue potassium supplement twice daily Continue sertraline for depression Will discuss placement at discharge with the nursing home social worker Increase lisinopril to 5 mg twice daily for hypertension Code Visit Inpatient E&M: [id number] [facility] L3
[2017-04-26] MEDS: Lisinopril 5 MG Tablet PO ×2 (10:04→22:15)
[2017-04-26] MEDS: Pantoprazole Sodium 40 MG Tablet PO (10:04)
[2017-04-26] MEDS: Sertraline 50 MG Tablet PO (10:05)
--- NOTE | 2017-04-26 13:31 | CASEMGMT ---
SW called patient's sister Maribell to obtain information on their father's finances for the Medicaid application. She said she does not know as her brother is the one that manages their dad's finances. Her brother's name is Sergio Allan and his number is [phone]. JOAO told her patient agreed to fill out a Medicaid application and agreed to go to a jail if she continued to have problems walking. JOAO then called patient's brother Sergio. He was not comfortable giving SW his dad's financial information. He understands SW is trying to help patient, but he is done with situation. He said they have tried numerous times to help her and she refuses. He does not want his dad held responsible for patient's issues and her refusing help. He was very polite about it and just wanted to let SW know why. SW to complete Medicaid application without patient's dad's information. Rosi ROBB
[2017-04-26] MEDS: Famotidine 20 MG Tablet 40 MG PO (14:53)
[2017-04-26] MEDS: Ferrous Sulfate 325 MG Tablet PO (17:28)
--- NOTE | 2017-04-26 19:55 | PCM.CONS.B ---
- Consult Date of Consult: 04/26/17 - Reason for Consult Chief Complaint: severe anemia History of Present Illness: 66 y/o WF presents with severe anemia. Was feeling weak and having shortness of breath and some chest pain. The symptoms have been present for at least one year. She also complains of increased swelling in her extremities. Hemoglobin of 3.2 Also elevated BNP with signs of congestive heart failure, chest x-ray showed cardiomegaly with small bilateral pleural effusions. She denies hematemesis, rectal bleeding, large bruises, history of peptic ulcer disease. Also denies nausea. Has some midline lower abdominal tenderness upon my examination with complaint of pain there, unknown time Has had weight loss, unknown was 150# She has never had a colonoscopy. She denies weight loss. There is no family history of colon cancer. Past Medical History: congestive heart failure cardiomegaly elevated TSH with normal T4 cardiac valve disease Past Surgical History: excision of knot on neck at age 3 (thyroglossal duct cyst?) right finger traumatic amputation dental surgery 2002 Past Injuries: denies head injuries, denies history of fractures Medications: denies taking chronic medications Allergies: Has no known drug allergies Social history: TOB use denies ETOH use denies Lives with father Review of Systems: General - denies fevers Cardiovascular denies chest pain, denies history of heart attack Pulmonary denies shortness of breath, denies coughing up blood Gastrointestinal denies abdominal pain, denies blood in stools Neurological denies seizures, denies history of stroke Genitourinary denies burning with urination, denies blood in urine Hematological denies spontaneous/prolonged bleeding Skin denies open non healing wounds Musculoskeletal denies history of fractures Endocrine denies diabetes, denies thyroid problems Psychological possibility of agoraphobia - has not left house in 3 years, has fear of men Physical examination: Vital signs Temp 98.7 HR 83 RR 16 General WD/WN WF in no apparent distress, alert and orientedg HEENT Normocephalic. EOM intact with sclera clear and no icterus noted. Neck is supple with no jugular venous distention noted. Trachea is midline. Lungs clear to auscultation, normal breath sounds. No rales/rhonchi/wheezing noted. No labored breathing noted, such as retractions. Heart normal S1 and S2 auscultated. No rubs/clicks/murmurs noted. . Abdomen soft and benign. Patient does complain of tenderness in the lower midline area. Normal bowel sounds area auscultated. No abdominal bruits noted. Extremities no calf tenderness noted. No pitting edema noted. bilateral lower extremity dependent swelling Genitourinary/Rectal deferred Skin normal skin integrity. Neurological non focal. Psychological normal affect, patient is calm and appropriate Impression: severe anemia - rule out GI etiology Discussion/Plan: I have discussed the above with the patient. I have offered the patient the procedure of upper and lower endoscopy. I have explained to patient that this is to identify for a GI source of anemia. I have explained the procedures to the patient. I have counseled the patient as to the risks of the procedure, including but not limited to: infection, bleeding, perforation of the GI tract, inability to complete the colonoscopy, injury to any intraabdominal organs such as liver/spleen, complications of anesthesia, etc. - she understands. She agrees to proceed. Will plan tentatively on . I have answered all questions to the patients satisfaction and the patient has no further questions.
--- NOTE | 2017-04-26 20:04 | CON.PCM_ITS ---
- Consult Date of Consult: 04/26/17 - Reason for Consult Chief Complaint: severe anemia History of Present Illness: 66 y/o WF presents with severe anemia. Was feeling weak and having shortness of breath and some chest pain. The symptoms have been present for at least one year. She also complains of increased swelling in her extremities. Hemoglobin of 3.2 Also elevated BNP with signs of congestive heart failure, chest x-ray showed cardiomegaly with small bilateral pleural effusions. She denies hematemesis, rectal bleeding, large bruises, history of peptic ulcer disease. Also denies nausea. Has some midline lower abdominal tenderness upon my examination with complaint of pain there, unknown time Has had weight loss, unknown was 150# She has never had a colonoscopy. She denies weight loss. There is no family history of colon cancer. Past Medical History: congestive heart failure cardiomegaly elevated TSH with normal T4 cardiac valve disease Past Surgical History: excision of knot on neck at age 3 (thyroglossal duct cyst?) right finger traumatic amputation dental surgery 2002 Past Injuries: denies head injuries, denies history of fractures Medications: denies taking chronic medications Allergies: Has no known drug allergies Social history: TOB use denies ETOH use denies Lives with father Review of Systems: General - denies fevers Cardiovascular denies chest pain, denies history of heart attack Pulmonary denies shortness of breath, denies coughing up blood Gastrointestinal denies abdominal pain, denies blood in stools Neurological denies seizures, denies history of stroke Genitourinary denies burning with urination, denies blood in urine Hematological denies spontaneous/prolonged bleeding Skin denies open non healing wounds Musculoskeletal denies history of fractures Endocrine denies diabetes, denies thyroid problems Psychological possibility of agoraphobia - has not left house in 3 years, has fear of men Physical examination: Vital signs Temp 98.7 HR 83 RR 16 General WD/WN WF in no apparent distress, alert and orientedg HEENT Normocephalic. EOM intact with sclera clear and no icterus noted. Neck is supple with no jugular venous distention noted. Trachea is midline. Lungs clear to auscultation, normal breath sounds. No rales/rhonchi/ wheezing noted. No labored breathing noted, such as retractions. Heart normal S1 and S2 auscultated. No rubs/clicks/murmurs noted. . Abdomen soft and benign. Patient does complain of tenderness in the lower midline area. Normal bowel sounds area auscultated. No abdominal bruits noted. Extremities no calf tenderness noted. No pitting edema noted. bilateral lower extremity dependent swelling Genitourinary/Rectal deferred Skin normal skin integrity. Neurological non focal. Psychological normal affect, patient is calm and appropriate Impression: severe anemia - rule out GI etiology Discussion/Plan: I have discussed the above with the patient. I have offered the patient the procedure of upper and lower endoscopy. I have explained to patient that this is to identify for a GI source of anemia. I have explained the procedures to the patient. I have counseled the patient as to the risks of the procedure, including but not limited to: infection, bleeding, perforation of the GI tract, inability to complete the colonoscopy, injury to any intraabdominal organs such as liver/ spleen, complications of anesthesia, etc. - she understands. She agrees to proceed. Will plan tentatively on . I have answered all questions to the patient?s satisfaction and the patient has no further questions.
[2017-04-27] VITALS (10 sets, daily range): BP systolic 117–137; BP diastolic 70–86; PULSE 51–88; RESP 16–18; TEMP 36.6–36.9; O2SAT 93–97
[2017-04-27 06:33] LABS: Hematocrit 28.2 % (37-47); Hemoglobin 8.7 g/dl (12.0-15.0); Mean Corp Hgb Conc 30.9 g/gl (32-36); Mean Corpuscular Volume 84.4 fL (81-99); Mean Platelet Vol. 10.3 fl (6.2-12.0); Platelet Count 281 K/mm3 (150-450); RBC Distribution Width CV 19.6 % (11.6-14.6); RBC Distribution Width SD 57.9 fl (35.1-43.9); Red Blood Count 3.34 M/mm3 (4.2-5.4); White Blood Count 8.2 K/mm3 (4.4-11.0)
[2017-04-27 06:38] LABS: Scan Indicated on CBC? Y/N NO
[2017-04-27 06:54] LABS: Anion Gap 9 (5-15); BUN 28 mg/dL (7-18); BUN/Creat Ratio 27.5 RATIO (10-20); Calcium,Total 7.4 mg/dL (8.5-10.1); Chloride 109 mmol/L (98-107); Creatinine, Serum 1.02 mg/dL (0.55-1.02); EST Glomerular Filtration Rate 58 mL/min (>60); Est Glom Filt Rate - Afr Amer 70 mL/min (>60); Estimated Creatinine Clearance 48.82 ml/min; Glucose 93 mg/dL (70-110); Phosphorus 2.6 mg/dL (2.5-4.9); Sodium Level 144 mmol/L (136-145)
--- NOTE | 2017-04-27 07:18 | PCM.PN.SRG ---
Patient Problems: Active and Suspected Problems CHF (congestive heart failure) (Acute) Coagulopathy (Acute) Elevated TSH (Acute) With a normal T4 Cardiomyopathy (Acute) Pulmonary hypertension (Acute) Pulmonary artery systolic pressure estimated at 56.... Tricuspid regurgitation (Acute) Mitral regurgitation (Acute) Subjective: patient denies abdominal pain - Physical Exam General: Alert Oral: Moist Mucosa Abdomen: Soft, Non Tender Vital Signs Temp Pulse Resp BP Pulse Ox 98.4 F 51 L 16 117/81 H 94 04/27/17 04:36 04/27/17 04:36 04/27/17 04:36 04/27/17 04:36 04/27/17 04:36 Oxygen Delivery Method Room Air Weight: 69.9 kg Body Mass Index (BMI) 27.8 Intake and Output for Last 24 Hours 04/25/17 04/26/17 04/27/17 23:59 23:59 23:59 Intake Total 2160 / 2160 2925 / 2925 Output Total 2500 / 2500 7250 / 7250 4150 / 4150 Balance -340 / -340 -4325 / -4325 -4150 / -4150 Laboratory Tests Past 24 Hrs 04/26/17 04/27/17 04/27/17 06:00 05:40 05:40 WBC 8.2 RBC 3.34 L Hgb 8.7 L Hct 28.2 L MCV 84.4 MCH 26.0 L MCHC 30.9 L RDW 19.6 H RDW Differential 57.9 H Plt Count 281 MPV 10.3 Sodium 144 144 Potassium 3.5 4.0 Chloride 111 H 109 H Carbon Dioxide 24.0 26.0 Anion Gap 9 9 BUN 25 H 28 H Creatinine 1.14 H 1.02 Estim Creat Clear Calc 43.68 48.82 Est GFR (MDRD) Af Amer 61 70 Est GFR (MDRD) Non-Af 51 L 58 L BUN/Creatinine Ratio 21.9 H 27.5 H Glucose 98 93 Calcium 7.1 L 7.4 L Phosphorus 2.4 L 2.6 Magnesium 2.0 2.0 Triglycerides 41 Cholesterol 67 LDL Cholesterol 31 VLDL Cholesterol 8 HDL Cholesterol 28 L Assessment/Plan Active and Suspected Problems CHF (congestive heart failure) (Acute) Coagulopathy (Acute) Elevated TSH (Acute) With a normal T4 Cardiomyopathy (Acute) Pulmonary hypertension (Acute) Pulmonary artery systolic pressure estimated at 56.... Tricuspid regurgitation (Acute) Mitral regurgitation (Acute) Impression: severe anemia Plan: proceed to upper and lower endoscopy tomorrow has been on clear liquid diet and will start Golytely this evening. Patient counseled as to risks of procedure, including but not limited to: infection, bleeding, perforation of GI tract, inability to complete procedure, complications of anesthesia, etc - she understands and agrees to proceed.
[2017-04-27] MEDS: Ferrous Sulfate 325 MG Tablet PO ×2 (09:07→18:35)
[2017-04-27] MEDS: Sertraline 50 MG Tablet PO (09:07)
[2017-04-27] MEDS: 0.9% NaCl Peripheral Flush Adult/Peds IV ×2 (09:07→18:36)
[2017-04-27] MEDS: Lisinopril 5 MG Tablet PO ×2 (09:07→21:29)
[2017-04-27] MEDS: Furosemide 40 MG/4 ML Vial IV ×2 (09:07→18:35)
[2017-04-27] MEDS: Famotidine 20 MG Tablet 40 MG PO (09:07)
--- NOTE | 2017-04-27 10:03 | CASEMGMT ---
Addendum entered by Rosi Hernandez 04/27/17 11:04: SW received a return phone call from patient's brother. He said that their father no longer claims patient as a dependent. JOAO thanked him for the information. Rosi ROBB Original Note: JOAO spoke with Lupe from [facility]. She asked if patient's dad claims patient as a dependent on his taxes. She said if he does they will have to have his financials and if not they will not need it. JOAO called patient's brother and left him a message requesting a return call regarding this information. Await return call. Rosi ROBB
--- NOTE | 2017-04-27 14:13 | CASEMGMT ---
Addendum entered by Rosi Hernandez 04/27/17 15:17: [facility] plans on coming to see patient in the am. SW spoke with patient and told her this information. She was okay with this, but wanted SW to talk with her sister as this may be too far for her sister. SW called patient's sister and let her know that it is going to be difficult to find a place to take patient due to the pending Medicaid and a lot of facilities are full. JOAO explained SW made a referral to [facility] and [facility]. She asked where they were and SW told her. She said [facility] is too far, she would not visit patient. SW told her we may not have a choice as this may be the only place that will take patient. SW told her patient does not want to go to [place]. SW told her SW will talk with patient. SW then spoke with patient and she wanted information on [facility] and [facility]. SW gave her this information. SW to follow up with patient tomorrow on which facility. Rosi [employer] OFFICER Original Note: JOAO spoke with patient and she signed the Medicaid application. She said she did not have a preference for a penitentiary, but does not want to go to either of the facilities in [place] as she does not want to see anyone she went to school with. She said she would like a smaller facility. JOAO faxed Medicaid application to [facility]. JOAO then called [facility] and made a referral as well as faxed over information. JOAO also called [facility] with a referral and faxed information. Await response from [facility] and [facility]. Rosi [employer] OFF[employer]ER
--- NOTE | 2017-04-27 16:01 | PN_ITS ---
Patient Problems: Active and Suspected Problems CHF (congestive heart failure) (Acute) Coagulopathy (Acute) Elevated TSH (Acute) With a normal T4 Cardiomyopathy (Acute) Pulmonary hypertension (Acute) Pulmonary artery systolic pressure estimated at 56.... Tricuspid regurgitation (Acute) Mitral regurgitation (Acute) Colonic mass (Acute) Preop cardiovascular exam (Acute) Subjective: All events of the past 24 hours of been reviewed. She is afebrile. Vital signs are stable. She is 97% saturated on room air. Hemoglobin is stable at 8.7 following transfusion of 5 units of packed red blood cells. White blood cell count is normal today and sore the platelets. BUN is 28 and the creatinine is down to 1.02. - Physical Exam General: Alert, Oriented x3, Cooperative, No apparent distress HEENT: Atraumatic Oral: Moist Mucosa Neck: Supple Lungs: Clear to auscultation Cardiovascular: Regular rate, Regular Rhythm, Normal S1, Normal S2, No Gallop Abdomen: Bowel Sounds Present, Soft, Non Tender, Non-Distended, No Hepato- splenomegaly, - - no masses Skin: No rashes, No breakdown Vital Signs Temp Pulse Resp BP Pulse Ox 97.9 F 70 16 137/86 H 97 04/27/17 09:23 04/27/17 15:00 04/27/17 09:23 04/27/17 09:23 04/27/17 09:23 Oxygen Delivery Method Room Air Weight: 154 lb 1.65 oz Body Mass Index (BMI) 27.8 Intake and Output for Last 24 Hours 04/25/17 04/26/17 04/27/17 23:59 23:59 23:59 Intake Total 2160 / 2160 2925 / 2925 410 / 410 Output Total 2500 / 2500 9950 / 9950 4100 / 4100 Balance -340 / -340 -7025 / -7025 -3690 / -3690 Laboratory Tests Past 24 Hrs 04/27/17 04/27/17 05:40 05:40 WBC 8.2 RBC 3.34 L Hgb 8.7 L Hct 28.2 L MCV 84.4 MCH 26.0 L MCHC 30.9 L RDW 19.6 H RDW Differential 57.9 H Plt Count 281 MPV 10.3 Sodium 144 Potassium 4.0 Chloride 109 H Carbon Dioxide 26.0 Anion Gap 9 BUN 28 H Creatinine 1.02 Estim Creat Clear Calc 48.82 Est GFR (MDRD) Af Amer 70 Est GFR (MDRD) Non-Af 58 L BUN/Creatinine Ratio 27.5 H Glucose 93 Calcium 7.4 L Phosphorus 2.6 Magnesium 2.0 Assessment/Plan Active and Suspected Problems CHF (congestive heart failure) (Acute) Coagulopathy (Acute) Elevated TSH (Acute) With a normal T4 Cardiomyopathy (Acute) Pulmonary hypertension (Acute) Pulmonary artery systolic pressure estimated at 56.... Tricuspid regurgitation (Acute) Mitral regurgitation (Acute) Colonic mass (Acute) Preop cardiovascular exam (Acute) Impressions 1. severe anemia - due to iron deficiency. Stool Hemoccult negative. Right side colon CA on colonoscopy. Hemicolectomy 05/03/17 2. Acute systolic congestive heart failure. Echocardiogram shows a 47% ejection fraction. CHF multifactorial. Due to mildly decreased EF, malnutrition, HGB 3.2 and inability of the heart to meet the metabolic demands of the body 3. 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 Reports that her mother always hid things and swept them under the carpet. When her mother 12 years ago everything escalated. May need placed in ECF. 4. Coagulopathy with a PT of 18.3 somewhat better after vitamin K....due to malnutrition, corrected with Vitamin K 5. chronic renal failure stage III-suspect due to long-standing hypertension and noncompliance with medication 6. MR, TR, moderate pulmonary hypertension (56), mild biatrial enlargement 7. Increased TSH with a normal T4 8. Hypophosphatemia- resolved with supplementation EGD and colonoscopy tomorrow with Dr. Quintero. HGB is stable. Plan DC to SNF when ready. Code Visit Inpatient E&M: 13715 Subs Hosp L1
[2017-04-27] MEDS: Electrolyte Solution/Peg's 4000 ML 2000 ML PO (19:31)
[2017-04-28] VITALS (15 sets, daily range): BP systolic 97–132; BP diastolic 49–78; PULSE 63–91; RESP 16–18; TEMP 36.7–36.9; O2SAT 93–100; BMI 25.6; BMI 23.8
--- NOTE | 2017-04-28 | COLBX_PTH ---
PATIENT: MARISABEL MCHUGH LOC: [facility] U#:[id number] AGE/SX: 66/F ROOM: [facility] RE04/25/[address]: Dr. Thomas Dowling DO : 1950 BED: 1 DIS: 05/06/2017 SPEC #: [id number] RECD: 04/28/17 14:11 STATUS: [place] REQ #: [id number] SANDHYA: 04/28/17 00:[address]: Vesta Quintero DEPT: SURGICAL PATHOLOGY RECD BY: Bubba Reynolds ENTERED: 04/28/17 14:11 SP TYPE: COLON BX OTHR DR: DO Dr. Shawn Okeefe DO Dr. Nhan Luu, MD No Primary Care Phys Tissues: Right colon Procedures: Surgery Specimen Level IV Comments: @ Ordering doctor for SUIV edited from to @ by MICK at 04/28/17 1424 @ Submitting doctor edited from to DR.LWANG Thomas by MASTEROD at 04/28/17 1424 HEADER OPERATION: Colonoscopy PRE-OP DIAGNOSIS: Anemia TISSUE SUBMITTED: Right colon mass biopsy MICROSCOPIC DIAGNOSIS Right colon mass, biopsy: Invasive adenocarcinoma. CATHY:steven 04/29/17 COMMENT Case has been reviewed in consultation with Dr. Arroyo who concurs with the above diagnosis. IDC:AM MICROSCOPIC DESCRIPTION Slides are reviewed. GROSS DESCRIPTION Received in fixative is one container labeled with the patient's name and designated right colon mass biopsy. The specimen consists of multiple irregular fragments of light chiu soft tissue that in aggregate measure 1.5 x 0.3 x 0.1 cm. The specimen is totally submitted in one cassette. / CATHY:steven 04/28/17 TC:0 CPT: 76616
[2017-04-28] MEDS: Electrolyte Solution/Peg's 4000 ML 2000 ML PO (05:32)
--- NOTE | 2017-04-28 05:55 | EKG12_ITS ---
Test Reason : MORNING EKG Blood Pressure : / mmHG Vent. Rate : 065 BPM Atrial Rate : 065 BPM P-R Int : 140 ms QRS Dur : 092 ms QT Int : 424 ms P-R-T Axes : 012 042 104 degrees QTc Int : 440 ms Sinus rhythm with frequent Premature ventricular complexes Nonspecific T wave abnormality Abnormal ECG Confirmed by MICHELE PATTON, VIDAL ([id number]), news copy editor CINDY KNUTSON ([id number]) on 05/04/2017 11:32:42 AM Referred By: OWEN Confirmed By:VIDAL BAUTISTA MD
[2017-04-28 06:52] LABS: Anion Gap 9 (5-15); BUN 21 mg/dL (7-18); Calcium,Total 7.9 mg/dL (8.5-10.1); Chloride 105 mmol/L (98-107); EST Glomerular Filtration Rate 59 mL/min (>60); Est Glom Filt Rate - Afr Amer 71 mL/min (>60); Glucose 77 mg/dL (70-110); Sodium Level 142 mmol/L (136-145)
[2017-04-28 06:57] LABS: International Normalized Ratio 1.4; Prothrombin Time (Protime)PT. 16.4 SECONDS (11.7-14.9)
[2017-04-28 06:58] LABS: Partial Thromboplast Time 29.7 Seconds (24.1-36.2)
[2017-04-28 07:10] LABS: Absolute Lymphocyte Count 0.64 X10^3/ul (0.83-4.51); Absolute Neutrophil Count 5.4 X10^3/uL (2.0-7.7); Basophil# 0.03 X10^3/uL; Basophil% 0.4 % (0-1); Differential Indicated SCAN CRITERIA MET; Eosinophil# 0.09 X10^3/uL; Eosinophils% 1.3 % (0-5); Hematocrit 31.1 % (37-47); Hemoglobin 9.3 g/dl (12.0-15.0); Lymphocyte # 0.64 X10^3/ul (4.0); Lymphocyte % 9.6 % (19-41); Mean Corp Hgb Conc 29.9 g/gl (32-36); Mean Corpuscular Hgb 25.5 pg (27.0-32.0); Mean Corpuscular Volume 85.2 fL (81-99); Mean Platelet Vol. 9.6 fl (6.2-12.0); Monocyte# 0.51 X10^3/uL; Monocyte% 7.6 % (0-10); Neutrophil # 5.42 X10^3/uL (2.7-7.7); POSITIVE COUNT NO; POSITIVE DIFFERENTIAL NO; POSITIVE MORPHOLOGY YES; Platelet Count 269 K/mm3 (150-450); RBC Distribution Width CV 20.4 % (11.6-14.6); Red Blood Count 3.65 M/mm3 (4.2-5.4); White Blood Count 6.7 K/mm3 (4.4-11.0)
[2017-04-28 07:44] LABS: Platelet Estimate ADEQUATE (ADEQ)
[2017-04-28 07:45] LABS: Anisocytosis 2+; Hypochromasia 2+; Platelet Morphology LARGE; Polychromasia 1+; Schistocytes RARE
--- NOTE | 2017-04-28 09:19 | CASEMGMT ---
SW spoke with patient this am. She said she is not sure about going to either of the 2 SNF's in [place]. She was on the BSC so SW will check back with her. Rosi CASILLAS MSW
--- NOTE | 2017-04-28 09:32 | CASEMGMT ---
JOAO called patient's sister per her request to notify her of patient's test today. JOAO called Maribell and let her know patient is going for an upper and lower endoscopy today around noon. She said she will be by today sometime after 4p to drop off clothes for patient. Rosi CASILLAS MSW
--- NOTE | 2017-04-28 11:00 | NURSING ---
Pt to ENDO w/[facility].
--- NOTE | 2017-04-28 13:14 | CT_ITS ---
STUDY: CT CHEST WITH CONTRAST REASON FOR EXAM: Female, 66 years old. Newly diagnosed right colon cancer on scope today, anemia, extremity swelling. RADIATION DOSAGE (If Supplied By Facility): CTDIvol = ( 11.26 ) mGy, DLP = ( 765.79 ) mGycm TECHNIQUE: Transaxial imaging was performed following intravenous administration of 100mL ml of Isovue 300 contrast material. Individualized dose optimization techniques were used for this CT. COMPARISON: None. FINDINGS: Large bilateral pleural effusions. There is no pneumothorax. Lingular and left lower lobe pneumonia. Soft tissue edema. Normal heart and pericardium. There is mild cardiac enlargement. There is a small pericardial effusion. Normal mediastinum. Normal hilar regions. Normal pulmonary arteries. There is atherosclerotic calcification of the aortic arch with tortuosity and elongation of the aortic arch and descending thoracic aorta. There are multi-level degenerative changes of the thoracic spine. There is no demonstrated abnormality of the visualized upper abdomen. CT/Chest WITH Contrast IMPRESSION: There is a small pericardial effusion. Large bilateral pleural effusions. Lingular and left lower lobe pneumonia. Electronically Signed: Clive Cancino MD at 17:08 EST , Service support ,
--- NOTE | 2017-04-28 13:14 | CT_ITS ---
STUDY: CT ABDOMEN AND PELVIS WITH CONTRAST REASON FOR EXAM: Female, 66 years old. Newly diagnosed right colon cancer on scope today, anemia, extremity swelling. RADIATION DOSAGE (If Supplied By Facility): CTDIvol = ( 11.26 ) mGy, DLP = ( 765.79 ) mGycm TECHNIQUE: Transaxial images were obtained from the dome of the diaphragm to the symphysis pubis with oral contrast. 100mL ml of Isovue 300 contrast was administered. Sagittal and coronal images were reconstructed. Individualized dose optimization techniques were used for this CT. COMPARISON: None. FINDINGS: Large bilateral pleural effusions. The heart is enlarged. Normal liver. Normal gallbladder and extrahepatic biliary system. Normal spleen. Normal pancreas. Normal bilateral adrenal glands. Normal right kidney. Normal left kidney. Normal visualized stomach. Diffuse heterogeneous mass surrounding the cecum. There is mild nodularity and possible extension of the mass to the terminal ileum. There is non-visualization of the appendix. There are calcifications of the abdominal aorta and vascular structures. This is consistent for atherosclerotic disease. There is no abdominal aortic aneurysm. Normal inferior vena cava. Subcentimeter mesenteric lymph nodes. There is a Parks balloon catheter in the urinary bladder. There is a Parks balloon catheter in the urinary bladder. Diffuse soft tissue edema. Normal abdominal wall. There are degenerative changes of the osseous structures. CT/Abdomen/Pelvis WITH Contrast IMPRESSION: Diffuse heterogeneous mass surrounding the cecum. There is mild nodularity and possible extension of the mass to the terminal ileum. As noted in the history, this is concerning for neoplasm. Large bilateral pleural effusions. Diffuse soft tissue edema. Other findings as above. Electronically Signed: Clive Cancino MD at 17:06 EST , Service support ,
--- NOTE | 2017-04-28 14:14 | PCM.IMDPSTOP ---
Immediate Post-Op Note Date of Procedure: 04/28/17 Primary Surgeon/Physician: Vesta Quintero cloth desizing range tender: NOT,DEFINED Pre-Operative Diagnosis: anemia Post-Operative Diagnosis: right colon mass - probable cancer Surgery/Procedure Performed:: EGD, colonoscopy with biopsies Description of Surgical Findings:: EGD - no lesions seen, Colonoscopy - right cecal mass circumferential probably cancer Estimated Blood Loss: < 1 cc Specimen's removed: right colon mass biopsies Type of Anesthesia:: MAC ASA Class: ASA2 Mod Systematic Disease - Admit VTE Documentation VTE Present on Admission: Yes VTE Mechan Device Prophylaxis: SCD's
--- NOTE | 2017-04-28 14:17 | OP.PCM_ITS ---
Report of Operation Date of Procedure: 04/28/17 Pre-Operative Diagnosis: anemia Post-Operative Diagnosis: right colon mass - probable cancer Surgery/Procedure Performed:: EGD, colonoscopy with biopsies Description of Surgical Findings:: EGD - no lesions seen, Colonoscopy - right cecal mass circumferential probably cancer cable machine operator: NOT,DEFINED Type of Anesthesia:: MAC Anesthesiologist: Andrew Coker Specimen's removed: right colon mass biopsies Estimated Blood Loss (mL): < 1 cc Fluids Replaced: see anesthesia note Description of Procedure: After informed consent was given, the patient was brought to the endoscopy suite. Appropriate time out protocol was followed. She was then placed in the upright sitting position. Appropriate cardiac, blood pressure, and pulse oximetry monitoring was placed. After stable vital signs were noted, the patient was given intravenous conscious sedation. The posterior pharynx was sprayed with lidocaine spray times two and a bite block was placed. The upper endoscope was lubricated and inserted into the patient?s mouth and then carefully placed into the patient?s throat. The patient was asked to swallow and the endoscope was then easily advanced into the patient?s esophagus. The endoscope was further advanced down into the patient?s stomach, then past the pylorus, then past the duodenal bulb and then to the second portion of the duodenum. There were no lesions noted in the duodenum. The endoscope was then retracted back into the stomach. A retroflex view of the stomach revealed no evidence of any masses. No ulcers, no strictures, no suspicious lesions were noted. No evidence of bleeding was noted throughout. The endoscope was retracted into the esophagus, where any insufflated gas in the stomach was aspirated out. The gastroesophageal junction was measured at 38 cm from the patient?s teeth and appeared normal. The remainder of the esophagus was normal. The upper endoscope was removed intact. The colonoscopy as done next. The patient was then placed in the left lateral decubitis position. The colonoscope was lubricated and carefully inserted into the patient?s anus. It was then advanced into the rectum, then into the sigmoid colon, then into the left descending colon, past the splenic flexure, into the transverse colon, past the hepatic flexure, then down into the right descending colon. At the distal aspect of the right colon, there was a circumferential mass, that appeared friable and nodular - c/w colon cancer. Multiple biopsies were taken using cold grasper forceps. The colonoscopy was then retracted back and the remainder of the colon was examined. No other lesions/masses/ulcers were noted. The colonoscope was removed intact. Patient tolerated procedure. - Complications none noted - Admit VTE Documentation VTE Present on Admission: Yes VTE Mechan Device Prophylaxis: SCD's
[2017-04-28] MEDS: Furosemide 40 MG/4 ML Vial IV (15:47)
[2017-04-28] MEDS: 0.9% NaCl Peripheral Flush Adult/Peds IV (16:56)
[2017-04-28] MEDS: Ferrous Sulfate 325 MG Tablet PO (16:56)
[2017-04-28] MEDS: Famotidine 20 MG Tablet 40 MG PO (16:57)
[2017-04-28] MEDS: Lisinopril 5 MG Tablet PO ×2 (16:58→21:03)
[2017-04-28] MEDS: Sertraline 50 MG Tablet PO (16:58)
[2017-04-29] VITALS (12 sets, daily range): BP systolic 96–130; BP diastolic 54–83; PULSE 71–96; RESP 16–18; TEMP 36.7–37.2; O2SAT 93–96
--- NOTE | 2017-04-29 | FLU_PTH ---
PATIENT: MARISABEL MCHUGH LOC: [facility] U#:[id number] AGE/SX: 66/F ROOM: [facility] RE04/25/[address]: Dr. Thomas Dowling DO : 1950 BED: 1 DIS: 05/06/2017 SPEC #: [id number] RECD: 04/29/17 12:05 STATUS: [place] STEFFANY #: [id number] SANDHYA: 04/29/17 00:[address]: Darleen Brooke DEPT: CYTOLOGY RECD BY: Bubba Reynolds ENTERED: 04/29/17 12:05 SP TYPE: Fluid OTHR DR: DO Dr. Vesta Bentley MD Dr. Nhan Luu, MD Dr. Paul Moodispaw, MD No Primary Care Phys Tissues: THORACIC FLUID Procedures: Pap Stain (control) Special Stain Group II Surgery Specimen Level IV Cell Block Cytospin Fluid HEADER OPERATION: Ultrasound-guided left thoracentesis PRE-OP DIAGNOSIS: Left pleural effusion TISSUE SUBMITTED: Thoracentesis fluid for cytology DIAGNOSIS CYTOLOGY Thoracentesis fluid for cytology (cytospin and cell block): Negative for malignant cells. SJ:steven 05/02/17 COMMENT Case has been reviewed in consultation with Dr. Arroyo who concurs with the above diagnosis. IDC:AM CYTOLOGY STUDY Slides are reviewed. The specimen consists of macrophages, mesothelial cells and inflammatory cells. CYTOLOGY GROSS Received is 50 ml of yellow cloudy fluid labeled with the patient's name and and designated per the requisition as thoracentesis. Submitted for cytology preparation including cell block. 04/29/17 TC:5 CPT: 52090, 44294
--- NOTE | 2017-04-29 03:46 | US_ITS ---
PROCEDURE: ULTRASOUND GUIDED THORACENTESIS. DATE: April 29, 2017.. INDICATION: Female, 66 years old. Left pleural effusion. PHYSICIAN: Duran Steven M.D. PROCEDURE: The risks, benefits, and alternatives to the procedure were explained to the patient. The specific risks of bleeding, infection, and pneumothorax requiring chest tube insertion were discussed and accepted. Written informed consent was obtained. Ultrasonographic evaluation of the left lower pleural space was carried out. An adequate pocket was identified. The patient was placed in the sitting, upright position. The overlying skin was prepped and draped in sterile fashion. 1% lidocaine was administered subcutaneously for local anesthesia. Under ultrasound guidance, a 6 Portuguese thoracentesis needle/catheter system was advanced into the left posterior lower pleural fluid collection. Approximately 320 mL of saravanan-colored fluid was drained. The catheter was removed, and a sterile dressing was applied. A specimen was collected and sent to the laboratory for analysis, as requested by the referring clinician. The patient tolerated the procedure well. A chest x-ray was ordered. US/Thoracentesis W US IMPRESSION: Ultrasound-guided left thoracentesis. Electronically Signed: Duran Steven MD at 13:07 EST Tel [phone], Service support ,
[2017-04-29 06:34] LABS: Hematocrit 30.5 % (37-47); Hemoglobin 9.1 g/dl (12.0-15.0); Mean Corp Hgb Conc 29.8 g/gl (32-36); Mean Corpuscular Hgb 26.1 pg (27.0-32.0); Mean Corpuscular Volume 87.6 fL (81-99); Mean Platelet Vol. 10.8 fl (6.2-12.0); Platelet Count 307 K/mm3 (150-450); RBC Distribution Width CV 20.9 % (11.6-14.6); RBC Distribution Width SD 63.2 fl (35.1-43.9); Red Blood Count 3.48 M/mm3 (4.2-5.4); White Blood Count 7.9 K/mm3 (4.4-11.0)
[2017-04-29 06:39] LABS: Scan Indicated on CBC? Y/N YES- FLAGS NOTED
[2017-04-29 06:40] LABS: Anion Gap 7 (5-15); BUN 19 mg/dL (7-18); BUN/Creat Ratio 18.4 RATIO (10-20); Calcium,Total 7.6 mg/dL (8.5-10.1); Chloride 106 mmol/L (98-107); Creatinine, Serum 1.03 mg/dL (0.55-1.02); EST Glomerular Filtration Rate 57 mL/min (>60); Est Glom Filt Rate - Afr Amer 69 mL/min (>60); Estimated Creatinine Clearance 48.35 ml/min; Glucose 113 mg/dL (70-110); Potassium 3.9 mmol/L (3.5-5.1); Sodium Level 142 mmol/L (136-145)
[2017-04-29 07:16] LABS: Differential Comment SCAN
--- NOTE | 2017-04-29 07:58 | PN_ITS ---
Patient Problems: Active and Suspected Problems CHF (congestive heart failure) (Acute) Coagulopathy (Acute) Elevated TSH (Acute) With a normal T4 Cardiomyopathy (Acute) Pulmonary hypertension (Acute) Pulmonary artery systolic pressure estimated at 56.... Tricuspid regurgitation (Acute) Mitral regurgitation (Acute) Subjective: All events of the past 24 hours of been reviewed. She has been afebrile within 48 hours.. She is 93% saturated on room air and 94 % saturated on 2 L Vital signs are stable. Heart rate is in the 70-80s range Mood balance since admission is -15,021. EGD on 04/28/2017 was unremarkable but colonoscopy revealed tumor right colon. There was a diffuse heterogeneous mass surrounding the cecum mild nodularity and possible extension of the mass to the terminal ileum. There are large bilateral pleural effusions. CT chest shows a small pericardial effusion and large bilateral pleural effusions. There are infiltrates in the lingula and left lower lobe pneumonia ( vs compressive atelectasis) Lab was personally reviewed. White blood cell count is 7.9. It is stable at 9.1. Platelets are normal at 307,000. Electrolytes are normal today and the BUN is 19 with a creatinine of 1.03 which is improved since admission. Legionella and streptococcal antigens in the urine were negative. CEA is WNL I personally reviewed the CT chest and feel the pneumonia in the left base is actually compressive atelectasis. She has effusion sbut has been getting diuresed. The EF was 47% and the PA is 56. She is not coughing and is afebrile and the WBC is WNL. LFT's are normal - Physical Exam General: Alert, Oriented x3, Cooperative, No apparent distress, - - malnourished HEENT: Atraumatic, Normocephalic Oral: Dry Mucosa Neck: Supple, No Nuchal Rigidity, Trachea Midline Lungs: No wheeze, No rales, Diminished - in the R base. No rales, no coughing, no conversational dyspnea, not tachypneic. Cardiovascular: Regular rate, Regular Rhythm, Normal S1, Normal S2, Murmur - she has a systolic MM in the L axillary area. the loud systolic MM at the secon Abdomen: Bowel Sounds Present, Soft, Non Tender, Non-Distended, No Hepato- splenomegaly, - - no guarding with palpation Extremities: No clubbing, No cyanosis, Capillary Refill Less than 3 Seconds, No Calf Tenderness, Edema - she still has edema of the posterior thighs and the anterior tibial area, no flank edema today and the had edema has completely resolved. Skin: No rashes Musculoskeletal: Muscle Wasting Neurological: Cranial nerves II-XII grossly intact, Neuro grossly intact Psych/Mental Status: Appropriate - does not seem to understand the gravity of the diagnosis of colon CA.....more focused on what she can eat and where will she go post discharge. Vital Signs Temp Pulse Resp BP Pulse Ox 98.1 F 71 16 107/54 L 94 04/29/17 02:55 04/29/17 03:09 04/29/17 02:55 04/29/17 02:55 04/29/17 02:55 Oxygen Flow Rate 2 Oxygen Delivery Method Nasal Cannula Weight: 104 lb 15.04 oz Body Mass Index (BMI) 23.8 Intake and Output for Last 24 Hours 04/27/17 04/28/17 04/29/17 23:59 23:59 23:59 Intake Total 2780 / 2780 1580 / 1580 134 / 134 Output Total 8050 / 8050 3725 / 3725 375 / 375 Balance -5270 / -5270 -2145 / -2145 -241 / -241 Microbiology Past 72 Hours 04/29/17 06:00 Streptococcus pneumoniae Antigen (M - Final Interface Orders 04/29/17 06:00 Legionella Antigen - Final Interface Orders Laboratory Tests Past 24 Hrs 04/25/17 04/28/17 04/29/17 07:55 05:40 05:30 WBC 7.9 RBC 3.48 L Hgb 9.1 L Hct 30.5 L MCV 87.6 MCH 26.1 L MCHC 29.8 L RDW 20.9 H RDW Differential 63.2 H Plt Count 307 MPV 10.8 Total Counted Not Reportable Differential Comment SCAN Platelet Estimate ADEQUATE Plt Morphology Comment LARGE Polychromasia 1+ Hypochromasia 2+ Anisocytosis 2+ Schistocytes RARE Sodium Potassium Chloride Carbon Dioxide Anion Gap BUN Creatinine Estim Creat Clear Calc Est GFR (MDRD) Af Amer Est GFR (MDRD) Non-Af BUN/Creatinine Ratio Glucose Calcium Carcinoembryonic Ag Pending 04/29/17 05:30 WBC RBC Hgb Hct MCV MCH MCHC RDW RDW Differential Plt Count MPV Total Counted Differential Comment Platelet Estimate Plt Morphology Comment Polychromasia Hypochromasia Anisocytosis Schistocytes Sodium 142 Potassium 3.9 Chloride 106 Carbon Dioxide 29.0 Anion Gap 7 BUN 19 H Creatinine 1.03 H Estim Creat Clear Calc 48.35 Est GFR (MDRD) Af Amer 69 Est GFR (MDRD) Non-Af 57 L BUN/Creatinine Ratio 18.4 Glucose 113 H Calcium 7.6 L Carcinoembryonic Ag Assessment/Plan Active and Suspected Problems CHF (congestive heart failure) (Acute) Coagulopathy (Acute) Elevated TSH (Acute) With a normal T4 Cardiomyopathy (Acute) Pulmonary hypertension (Acute) Pulmonary artery systolic pressure estimated at 56.... Tricuspid regurgitation (Acute) Mitral regurgitation (Acute) Impressions 1. severe anemia - due to iron deficiency. Stool Hemoccult negative. Right side colon CA on colonoscopy. Hemicolectomy 05/03/17 2. Acute systolic congestive heart failure. Echocardiogram shows a 47% ejection fraction. CHF multifactorial. Due to mildly decreased EF, malnutrition, HGB 3.2 and inability of the heart to meet the metabolic demands of the body 3. 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 Reports that her mother always hid things and swept them under the carpet. When her mother 12 years ago everything escalated. May need placed in ECF. 4. Coagulopathy with a PT of 18.3 somewhat better after vitamin K....due to malnutrition, corrected with Vitamin K 5. chronic renal failure stage III-suspect due to long-standing hypertension and noncompliance with medication 6. MR, TR, moderate pulmonary hypertension (56), mild biatrial enlargement 7. Increased TSH with a normal T4 8. Hypophosphatemia- resolved with supplementation 9. BL pleural effusions with compressive atelectasis and anasarca at admission 10. Colon CA - right side Diagnostic thoracentesis today Cardiology consult at the request of anesthesia and Dr. Quintero - discussed with Dr. Campbell. I did discuss the findings of the colonoscopy with her. She is agreeable to the thoracentesis today and also agreeable to hemicolectomy Sister is aware of the diagnosis of colon CA continue to diurese until the anasarca has resolved or the serum bicarb or creat increases HGB is stable, start Lovenox in the AM for DVT prophylaxis. Continue iron supplement Code Visit Inpatient E&M: 20172 Subs Hosp L3
[2017-04-29 08:20] LABS: ALB/GLOB Ratio 0.7 RATIO (0.9-2.4); LDH 276 U/L (84-246); Protein, Total 5.2 g/dL (6.4-8.2)
[2017-04-29 08:29] LABS: Carcinoembryonic Antigen 4.4 ng/mL (0.0-4.7)
--- NOTE | 2017-04-29 10:00 | RAD_ITS ---
STUDY: X-RAY CHEST REASON FOR EXAM: Female, 66 years old. Status post left thoracentesis. TECHNIQUE: AP inspiratory views of the chest. COMPARISON: Comparison is made with prior study April 26, 2017. FINDINGS: The patient is status post left thoracentesis. There is no evidence of pneumothorax. RAD/Chest 1 View IMPRESSION: Status post left thoracentesis. There is no evidence of pneumothorax. Electronically Signed: Duran Steven MD at 13:36 EST Tel [phone], Service support ,
--- NOTE | 2017-04-29 10:00 | RAD_ITS ---
STUDY: X-RAY CHEST REASON FOR EXAM: Female, 66 years old. The patient is status post left thoracentesis. TECHNIQUE: Single frontal expiratory view of the chest. COMPARISON: Comparison is made with prior study dated April 26, 2017. FINDINGS: The patient is status post left thoracentesis. No evidence pneumothorax. There is evidence of residual mild CHF with bibasilar atelectasis and/or infiltrate. There is moderate cardiac enlargement. Normal mediastinum and paulette. Normal visualized pulmonary arteries. There is atherosclerotic calcification of the aortic arch with tortuosity. There are degenerative changes of the visualized thoracic spine. Normal visualized ribs, clavicles, and shoulders. There is no demonstrated abnormality of the visualized soft tissue structures of the upper abdomen. RAD/Chest 1 View IMPRESSION: Status post left thoracentesis. There is no evidence of pneumothorax. Electronically Signed: Duran Steven MD at 13:06 EST Tel [phone], Service support ,
[2017-04-29 10:29] LABS: Cytology, Body Fluid / CSF SEE PATHOLOGY REPORT
[2017-04-29] MEDS: Famotidine 20 MG Tablet 40 MG PO (10:45)
[2017-04-29] MEDS: Ferrous Sulfate 325 MG Tablet PO ×2 (10:45→16:35)
[2017-04-29] MEDS: Sertraline 50 MG Tablet PO (10:45)
[2017-04-29] MEDS: Lisinopril 5 MG Tablet PO ×2 (10:45→23:04)
[2017-04-29] MEDS: Furosemide 40 MG/4 ML Vial IV ×2 (10:47→17:08)
[2017-04-29] MEDS: 0.9% NaCl Peripheral Flush Adult/Peds IV ×2 (10:48→17:08)
[2017-04-29 11:27] LABS: Body Fluid Mononuclear WBC # 0.152 10^3/uL; Body Fluid Mononuclear WBC % 89.9 %; Body Fluid Polynuclear WBC # 0.017 10^3/uL; Body Fluid Polynuclear WBC % 10.1 %; Body Fluid Total Cells Counted 0.213 10^3/ul (0.000-0.000); White Blood Count/Body Fluid 0.169 10^3/uL
[2017-04-29 11:28] LABS: Appearance/Body Fluid CLEAR; Auto B Fluid Analyzer BKGD Ct COUNTS W/IN LIMITS (W/IN LIMITS); Color/Body Fluid YELLOW; Source- Body Fluid THORACENTESIS
[2017-04-29 11:45] LABS: Red Cell Count/Body Fluid 2 /mm3
[2017-04-29 11:46] LABS: Glucose, Body Fluid 104 mg/dL (40-70); LDH,Body Fluid 69 Units/l (Not Establ.)
[2017-04-29 12:21] LABS: Lymphocytes 27 %; Monocytes 3 %; Neutrophil (Segs) 7 %
[2017-04-29 12:22] LABS: Mesothelial Cells 61 %; Other Cell Type/BF 2 %
[2017-04-29 12:39] LABS: Body Fluid QC Type(s) BF1Q
--- NOTE | 2017-04-29 13:14 | PCM.PN.SRG ---
Patient Problems: Active and Suspected Problems CHF (congestive heart failure) (Acute) Coagulopathy (Acute) Elevated TSH (Acute) With a normal T4 Cardiomyopathy (Acute) Pulmonary hypertension (Acute) Pulmonary artery systolic pressure estimated at 56.... Tricuspid regurgitation (Acute) Mitral regurgitation (Acute) Colonic mass (Acute) Preop cardiovascular exam (Acute) Subjective: Patient denies abdominal pain - Physical Exam General: Alert Neck: Supple Lungs: Normal air movement Abdomen: Bowel Sounds Present, Soft Vital Signs Temp Pulse Resp BP Pulse Ox 98.0 F 79 17 126/61 H 95 04/29/17 10:54 04/29/17 11:08 04/29/17 10:54 04/29/17 10:54 04/29/17 10:54 Oxygen Flow Rate 2 Oxygen Delivery Method Room Air Weight: 47.6 kg Body Mass Index (BMI) 23.8 Intake and Output for Last 24 Hours 04/27/17 04/28/17 04/29/17 23:59 23:59 23:59 Intake Total 2780 / 2780 1580 / 1580 484 / 484 Output Total 8050 / 8050 3725 / 3725 825 / 825 Balance -5270 / -5270 -2145 / -2145 -341 / -341 Microbiology Past 72 Hours 04/29/17 06:00 Streptococcus pneumoniae Antigen (M - Final Interface Orders 04/29/17 06:00 Legionella Antigen - Final Interface Orders Laboratory Tests Past 24 Hrs 04/25/17 04/29/17 04/29/17 07:55 05:30 05:30 WBC 7.9 RBC 3.48 L Hgb 9.1 L Hct 30.5 L MCV 87.6 MCH 26.1 L MCHC 29.8 L RDW 20.9 H RDW Differential 63.2 H Plt Count 307 MPV 10.8 Differential Comment SCAN Sodium 142 Potassium 3.9 Chloride 106 Carbon Dioxide 29.0 Anion Gap 7 BUN 19 H Creatinine 1.03 H Estim Creat Clear Calc 48.35 Est GFR (MDRD) Af Amer 69 Est GFR (MDRD) Non-Af 57 L BUN/Creatinine Ratio 18.4 Glucose 113 H Calcium 7.6 L Lactate Dehydrogenase Total Protein Globulin Albumin/Globulin Ratio Carcinoembryonic Ag 4.4 Fluid Source Fluid Color Fluid Appearance Fluid pH Fluid WBC Fluid RBC Fluid Tot Cell Count Fld Polynuclear WBCs # Fld Polynuclear WBCs % Fluid Mononuclear WBCs Fld Mononuclear WBCs % Fluid Neutrophils Fluid Lymphocytes Fluid Monocytes Fld Mesothelial Cells Fluid Other Cells Fl Pathologist Comment Fluid Glucose Fluid Total Protein Fluid LDH Fluid Comment 2 Miscellaneous Cytology 04/29/17 04/29/17 04/29/17 05:30 09:45 09:45 WBC RBC Hgb Hct MCV MCH MCHC RDW RDW Differential Plt Count MPV Differential Comment Sodium Potassium Chloride Carbon Dioxide Anion Gap BUN Creatinine Estim Creat Clear Calc Est GFR (MDRD) Af Amer Est GFR (MDRD) Non-Af BUN/Creatinine Ratio Glucose Calcium Lactate Dehydrogenase 276 H Total Protein 5.2 L Globulin 3.0 Albumin/Globulin Ratio 0.7 L Carcinoembryonic Ag Fluid Source Fluid Color Fluid Appearance Fluid pH Pending Fluid WBC Fluid RBC Fluid Tot Cell Count Fld Polynuclear WBCs # Fld Polynuclear WBCs % Fluid Mononuclear WBCs Fld Mononuclear WBCs % Fluid Neutrophils Fluid Lymphocytes Fluid Monocytes Fld Mesothelial Cells Fluid Other Cells Fl Pathologist Comment Fluid Glucose 104 H Fluid Total Protein 2.0 Fluid LDH 69 Fluid Comment 2 Miscellaneous Cytology 04/29/17 04/29/17 09:45 09:45 WBC RBC Hgb Hct MCV MCH MCHC RDW RDW Differential Plt Count MPV Differential Comment Sodium Potassium Chloride Carbon Dioxide Anion Gap BUN Creatinine Estim Creat Clear Calc Est GFR (MDRD) Af Amer Est GFR (MDRD) Non-Af BUN/Creatinine Ratio Glucose Calcium Lactate Dehydrogenase Total Protein Globulin Albumin/Globulin Ratio Carcinoembryonic Ag Fluid Source THORACENTESIS Fluid Color YELLOW Fluid Appearance CLEAR Fluid pH Fluid WBC 0.169 Fluid RBC 2 Fluid Tot Cell Count 0.213 H Fld Polynuclear WBCs # 0.017 Fld Polynuclear WBCs % 10.1 Fluid Mononuclear WBCs 0.152 Fld Mononuclear WBCs % 89.9 Fluid Neutrophils 7 Fluid Lymphocytes 27 Fluid Monocytes 3 Fld Mesothelial Cells 61 Fluid Other Cells 2 Fl Pathologist Comment May follow Fluid Glucose Fluid Total Protein Fluid LDH Fluid Comment 2 SEE COMMENT Miscellaneous Cytology Pending Assessment/Plan Active and Suspected Problems CHF (congestive heart failure) (Acute) Coagulopathy (Acute) Elevated TSH (Acute) With a normal T4 Cardiomyopathy (Acute) Pulmonary hypertension (Acute) Pulmonary artery systolic pressure estimated at 56.... Tricuspid regurgitation (Acute) Mitral regurgitation (Acute) Colonic mass (Acute) Preop cardiovascular exam (Acute) Impression: severe anemia - presented to the hospital with this right colon cancer - as found by colonoscopy yesterday - pathology reveals invasive adenocarcinoma - no evidence of metastatic disease by chest/abd/pelv CT, CEA is WNL Plan: I have discussed above with patient at her bedside I have told patient her diagnosis (Dr. Brooke had spoken to patient this morning), after telling patient I told patient that she had cancer - she stated oh, really?, but didn't seem surprised I have told patient that I have recommended surgery - right hemicolectomy, laparoscopic I have explained procedure to patient. I have counseled patient as to the risks of surgery, including but not limited to: infection, bleeding, injury to any bowel/bladder, injury to any blood vessels/nerves, injury to kidney/ureter, intraabdominal abscess/bleeding, injury to liver/spleen, anastomotic leak, anastomotic stricture, wound infections, wound hernias, scar tissue, complications of anesthesia, etc. - she understands. She agrees to proceed. Surgery scheduled for Tuesday. I spoke with patient's sister, Maribell Duke, via telephone. I explained the above. I have answered all her questions and she had no further questions. Will start bowel cleansing preparation on Tuesday with [facility]. Anesthesia requested cardiology consultation prior to surgery.
--- NOTE | 2017-04-29 20:28 | PCM.CONS.C ---
Problem List (1) Cardiomyopathy Status: Acute (2) CHF (congestive heart failure) Status: Acute Qualifiers: Congestive heart failure type: systolic (3) Severe anemia Status: Chronic (4) Mitral regurgitation Status: Acute Qualifiers: Cardiac valve disease etiology: nonrheumatic Qualified Code(s): I34.0 - Nonrheumatic mitral (valve) insufficiency (5) Tricuspid regurgitation Status: Acute Qualifiers: Cardiac valve disease etiology: nonrheumatic Qualified Code(s): I36.1 - Nonrheumatic tricuspid (valve) insufficiency (6) Pulmonary hypertension Status: Acute Comment: Pulmonary artery systolic pressure estimated at 56.... (7) Colonic mass Status: Acute (8) Preop cardiovascular exam Status: Acute Reason for Consult Date of Consultation: 04/29/17 History of Present Illness: The patient is a 66 year old white female who claims to have no past cardiovascular history who has recently been diagnosed with concerns of an underlying cardiomyopathy, congestive heart failure, in the setting of profound anemia thought secondary to an underlying gastrointestinal bleeding process secondary to an underlying colonic mass lesion, with pulmonary hypertension, MR, and TR who was referred for preoperative cardiovascular evaluation. The patient states that she does not usually follow with physicians. She does not know of any past cardiovascular history other than her family history which is been positive on both her parental and maternal sides. She does not recall going through any cardiovascular testing in the past. She states she has been experiencing progressive shortness of breath and dyspnea, fatigue and weakness, and lower extremity edema. She has been denying any obvious acute orthopnea or PND. There is been no report of near syncope or syncope. She has subsequently been evaluated at [facility] and was found to be markedly anemic with a hemoglobin level of 3.2. She has undergone additional evaluation and has found to have concerns of an underlying colonic mass lesion for which she requires surgical intervention. During her hospitalization she underwent evaluation with an ECG. She was found to have evidence of sinus rhythm with occasional premature ectopic complexes, poor R-wave progression, and nonspecific T-wave changes. She had a transthoracic echocardiogram performed on 04/25/2017. Her left ventricle was thought to demonstrate mild global left ventricular systolic dysfunction with an estimated LVEF of 45% with mild left atrial enlargement and mild right atrial enlargement and mild MR and mild to moderate TR with an estimated RV systolic pressure 56 mmHg compatible with pulmonary hypertension. During her hospitalization she has received PRBCs. She has received diuretic therapy. She states she does feel somewhat better. Her lower extremity edema has decreased. She also is undergone evaluation for a left sided pleural effusion. She underwent a thoracentesis procedure of approximately 320 cc of pleural fluid. 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 - *Family History Maternal History Items: Heart Disease Paternal History Items: Heart Disease Lives: With Family Smoking Status: Never smoker Tobacco Use: Non-smoker Alcohol: None Drugs: None Review of Systems - Review of Systems General: Reports: Fatigue, Weakness. Denies: Fever, Night Sweats Cardiovascular: Reports: Shortness of Breath, Shortness of Breath with Exertion, Peripheral Edema. Denies: Chest Discomfort, Orthopnea, PND, Palpitations, Lightheadedness, Dizziness, Near Syncope, Syncope Respiratory: Reports: Shortness of Breath. Denies: Cough, Sputum Production, Hemoptysis Gastrointestinal: Denies: Hematemesis, Hematochezia, Melena Genitourinary: Denies: Dysuria, Hematuria Skin: Denies: Rash Subjectve: This is a 66-year-old white female who appears to be resting reasonably comfortably at the moment in no acute distress. Objective: Vital Signs Temp Pulse Resp BP Pulse Ox 98.9 F 94 18 114/75 93 04/29/17 16:33 04/29/17 19:31 04/29/17 16:33 04/29/17 16:33 04/29/17 16:33 Oxygen Flow Rate 2 Oxygen Delivery Method Room Air Weight: 104 lb 15.04 oz Body Mass Index (BMI) 23.8 Intake and Output for Last 24 Hours 01/04/28/17 04/29/17 23:59 23:59 23:59 Intake Total 2780 / 2780 1580 / 1580 964 / 964 Output Total 8050 / 8050 3725 / 3725 3175 / 3175 Balance -5270 / -5270 -2145 / -2145 -2211 / -2211 General: Awake, Alert, Oriented x 3, Cooperative, No Acute Distress Neck: No JVD Lungs: Diminished Left Base Cardiovascular: Regular Rhythm, Premature Ectopic Beats, Normal S1, Normal S2 Murmur Murmur: Grade 2/6, Harsh, Mid Systolic, LLSB, LVOT Vascular: No Carotid Bruits Abdomen: Bowel Sounds Present, Soft, Non Tender Extremities: Mild RLE Edema, Mild LLE Edema 04/29/17 05:30: WBC 7.9, RBC 3.48 L, Hgb 9.1 L, Hct 30.5 L, MCV 87.6, MCH 26.1 L, MCHC 29.8 L, RDW 20.9 H, RDW Differential 63.2 H, Plt Count 307, MPV 10.8 04/29/17 05:30: Sodium 142, Potassium 3.9, Chloride 106, Carbon Dioxide 29.0, Anion Gap 7, BUN 19 H, Creatinine 1.03 H, Est GFR (MDRD) Af Amer 69, Est GFR (MDRD) Non-Af 57 L, BUN/Creatinine Ratio 18.4, Glucose 113 H, Calcium 7.6 L Rhythm: Sinus rhythm EKG: As noted above ECHO: As noted above CXR: Please see official report Assessment/Plan 1. Cardiomyopathy The patient has been found by noninvasive studies to have concerns of an underlying cardiomyopathy based upon the parents of her ventricle being mildly globally impaired. It is unclear as to how long this has been present in the patient. Her cardiomyopathy could contribute to her underlying findings of her volume overload compatible with CHF based upon symptoms, pleural effusions, peripheral edema, etc. However at the same time she has been noted to have low total protein and albumin levels which could contribute to third spacing leading to her physical examination findings as well. At the present time she is being followed. She is being treated medically. It would not be unreasonable to consider beta-issa therapy in addition to her JEEVAN inhibitor therapy. She may eventually need further evaluation of this cardiomyopathy with respect to any evidence of contribution from coronary artery disease. This may come noninvasively or invasively. However at the moment, based upon her ongoing clinical course with respect to her concerns of her anemia, colonic mass lesion, etc. requiring upcoming surgery, it appears that she will continue conservative medical management and be considered for further evaluation in the future. 2. Congestive heart failure It is unclear as to whether her signs and symptoms compatible with CHF are all related to her underlying finding of a cardiomyopathy (mild) versus being related to concerns of her low protein and low albumin levels and third setting versus being related to a potential high output failure secondary to her underlying anemia. There may be a combination of factors contributing to this. The moment she does appear to be clinically improved status post receiving PRBCs and diuretic therapy. She will need to continue medical management. Again this can conclude multiple agents as deemed appropriate such as nitrates, beta-blockers, diuretics, afterload reducing agents, etc. 3. Anemia The patient is anemic. She received PRBC transfusions. She does appear to be somewhat symptomatically improved. The etiology appears to be concerning for relationship to a colonic mass lesion. This is pending surgical evaluation and care. The anemia does present issues with respect to further cardiovascular evaluation either noninvasively or invasively at this time. Certainly from an invasive standpoint it may be challenging to further evaluate the patient for if she would have the need for additional antiplatelet or anticoagulant therapy it may not be able to be used at this time secondary to concerns of the anemia process. It would be prudent to keep her hemoglobin, especially in light of any cardiovascular concerns, as close to 10 or above as possible. This may help improve her oxygen carrying capacity. 4. MR He does have an element of MR based on her examination and her echocardiographic findings. It does not appear, based on her echocardiographic findings, that this is hemodynamically significant to be the etiology of her underlying cardiomyopathy or concerns of volume overload. 5. TR Again the patient does have an element of TR. It was listed as mild to moderate on her echocardiogram. It may be secondary to concerns of her underlying elevated pulmonary pressures. 6. Pulmonary hypertension He does have an element of pulmonary hypertension. The etiology is unclear at this time. This may not necessarily be all cardiovascular related. She should continue to be monitored and supported as deemed appropriate as she goes through her medical and surgical evaluation care. 7. Colonic mass She has been evaluated by general surgery. She is pending upcoming surgical resection for further evaluation and care. 8. Preoperative cardiovascular examination This is a 66-year-old white female with no known cardiovascular disease who now presents with marked anemia thought secondary to a colonic mass with subsequent findings of volume overload and subsequent noninvasive diagnostic findings suggesting an underlying mild cardiomyopathy. She has been undergoing evaluation and care. She has received PRBCs which have improved her overall status. She is also received diuretic therapy in addition to her PRBCs which appears to improve her lower extremity edema. She is also undergone a left-sided thoracentesis procedure. From a cardiac standpoint she should continue to be monitored with respect to her cardiac rate and rhythm and blood pressure. She should continue to have her hemoglobin supported. She should continue medical therapy for her cardiovascular concerns as noted above. At the moment, based upon a variety of her ongoing medical issues, it was not felt that she required further noninvasive or invasive evaluation or that she was an ideal candidate for additional noninvasive or invasive evaluation from a cardiovascular standpoint at this time. She should have close monitoring of her heart rate, rhythm, blood pressure during and after her surgical procedure. An attempt should be made to avoid volume overload during and after her surgical procedure. She may need to be considered in the future for additional noninvasive or invasive cardiovascular studies depending upon her clinical course, stabilization, etc. The patient's case has been discussed with the patient, her family members present, and Dr. Brooke. This note was generated with [employer] software. Every effort was made to ensure accuracy, however, computerized oven laborer mistakes may persist.
--- NOTE | 2017-04-29 20:40 | CON.PCM_ITS ---
Problem List (1) Cardiomyopathy Status: Acute (2) CHF (congestive heart failure) Status: Acute Qualifiers: Congestive heart failure type: systolic (3) Severe anemia Status: Chronic (4) Mitral regurgitation Status: Acute Qualifiers: Cardiac valve disease etiology: nonrheumatic Qualified Code(s): I34.0 - Nonrheumatic mitral (valve) insufficiency (5) Tricuspid regurgitation Status: Acute Qualifiers: Cardiac valve disease etiology: nonrheumatic Qualified Code(s): I36.1 - Nonrheumatic tricuspid (valve) insufficiency (6) Pulmonary hypertension Status: Acute Comment: Pulmonary artery systolic pressure estimated at 56.... (7) Colonic mass Status: Acute (8) Preop cardiovascular exam Status: Acute Reason for Consult Date of Consultation: 04/29/17 History of Present Illness: The patient is a 66 year old white female who claims to have no past cardiovascular history who has recently been diagnosed with concerns of an underlying cardiomyopathy, congestive heart failure, in the setting of profound anemia thought secondary to an underlying gastrointestinal bleeding process secondary to an underlying colonic mass lesion, with pulmonary hypertension, MR , and TR who was referred for preoperative cardiovascular evaluation. The patient states that she does not usually follow with physicians. She does not know of any past cardiovascular history other than her family history which is been positive on both her parental and maternal sides. She does not recall going through any cardiovascular testing in the past. She states she has been experiencing progressive shortness of breath and dyspnea , fatigue and weakness, and lower extremity edema. She has been denying any obvious acute orthopnea or PND. There is been no report of near syncope or syncope. She has subsequently been evaluated at [facility] and was found to be markedly anemic with a hemoglobin level of 3.2. She has undergone additional evaluation and has found to have concerns of an underlying colonic mass lesion for which she requires surgical intervention. During her hospitalization she underwent evaluation with an ECG. She was found to have evidence of sinus rhythm with occasional premature ectopic complexes, poor R-wave progression, and nonspecific T-wave changes. She had a transthoracic echocardiogram performed on 04/25/2017. Her left ventricle was thought to demonstrate mild global left ventricular systolic dysfunction with an estimated LVEF of 45% with mild left atrial enlargement and mild right atrial enlargement and mild MR and mild to moderate TR with an estimated RV systolic pressure 56 mmHg compatible with pulmonary hypertension. During her hospitalization she has received PRBCs. She has received diuretic therapy. She states she does feel somewhat better. Her lower extremity edema has decreased. She also is undergone evaluation for a left sided pleural effusion. She underwent a thoracentesis procedure of approximately 320 cc of pleural fluid. 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 SPONGE DIVER History: No pertinent SPONGE DIVER history, - - She had menopause in her late 40s and has had no vaginal bleeding for several years. - *Family History Maternal History Items: Heart Disease Paternal History Items: Heart Disease Lives: With Family Smoking Status: Never smoker Tobacco Use: Non-smoker Alcohol: None Drugs: None Review of Systems - Review of Systems General: Reports: Fatigue, Weakness. Denies: Fever, Night Sweats Cardiovascular: Reports: Shortness of Breath, Shortness of Breath with Exertion , Peripheral Edema. Denies: Chest Discomfort, Orthopnea, PND, Palpitations, Lightheadedness, Dizziness, Near Syncope, Syncope Respiratory: Reports: Shortness of Breath. Denies: Cough, Sputum Production, Hemoptysis Gastrointestinal: Denies: Hematemesis, Hematochezia, Melena Genitourinary: Denies: Dysuria, Hematuria Skin: Denies: Rash Subjectve: This is a 66-year-old white female who appears to be resting reasonably comfortably at the moment in no acute distress. Objective: Vital Signs Temp Pulse Resp BP Pulse Ox 98.9 F 94 18 114/75 93 04/29/17 16:33 04/29/17 19:31 04/29/17 16:33 04/29/17 16:33 04/29/17 16:33 Oxygen Flow Rate 2 Oxygen Delivery Method Room Air Weight: 104 lb 15.04 oz Body Mass Index (BMI) 23.8 Intake and Output for Last 24 Hours 01/04/28/17 04/29/17 23:59 23:59 23:59 Intake Total 2780 / 2780 1580 / 1580 964 / 964 Output Total 8050 / 8050 3725 / 3725 3175 / 3175 Balance -5270 / -5270 -2145 / -2145 -2211 / -2211 General: Awake, Alert, Oriented x 3, Cooperative, No Acute Distress Neck: No JVD Lungs: Diminished Left Base Cardiovascular: Regular Rhythm, Premature Ectopic Beats, Normal S1, Normal S2 Murmur Murmur: Grade 2/6, Harsh, Mid Systolic, LLSB, LVOT Vascular: No Carotid Bruits Abdomen: Bowel Sounds Present, Soft, Non Tender Extremities: Mild RLE Edema, Mild LLE Edema 04/29/17 05:30: WBC 7.9, RBC 3.48 L, Hgb 9.1 L, Hct 30.5 L, MCV 87.6, MCH 26.1 L , MCHC 29.8 L, RDW 20.9 H, RDW Differential 63.2 H, Plt Count 307, MPV 10.8 04/29/17 05:30: Sodium 142, Potassium 3.9, Chloride 106, Carbon Dioxide 29.0, Anion Gap 7, BUN 19 H, Creatinine 1.03 H, Est GFR (MDRD) Af Amer 69, Est GFR ( MDRD) Non-Af 57 L, BUN/Creatinine Ratio 18.4, Glucose 113 H, Calcium 7.6 L Rhythm: Sinus rhythm EKG: As noted above ECHO: As noted above CXR: Please see official report Assessment/Plan 1. Cardiomyopathy The patient has been found by noninvasive studies to have concerns of an underlying cardiomyopathy based upon the parents of her ventricle being mildly globally impaired. It is unclear as to how long this has been present in the patient. Her cardiomyopathy could contribute to her underlying findings of her volume overload compatible with CHF based upon symptoms, pleural effusions, peripheral edema, etc. However at the same time she has been noted to have low total protein and albumin levels which could contribute to third spacing leading to her physical examination findings as well. At the present time she is being followed. She is being treated medically. It would not be unreasonable to consider beta-issa therapy in addition to her JEEVAN inhibitor therapy. She may eventually need further evaluation of this cardiomyopathy with respect to any evidence of contribution from coronary artery disease. This may come noninvasively or invasively. However at the moment, based upon her ongoing clinical course with respect to her concerns of her anemia, colonic mass lesion , etc. requiring upcoming surgery, it appears that she will continue conservative medical management and be considered for further evaluation in the future. 2. Congestive heart failure It is unclear as to whether her signs and symptoms compatible with CHF are all related to her underlying finding of a cardiomyopathy (mild) versus being related to concerns of her low protein and low albumin levels and third setting versus being related to a potential high output failure secondary to her underlying anemia. There may be a combination of factors contributing to this. The moment she does appear to be clinically improved status post receiving PRBCs and diuretic therapy. She will need to continue medical management. Again this can conclude multiple agents as deemed appropriate such as nitrates, beta-blockers, diuretics, afterload reducing agents, etc. 3. Anemia The patient is anemic. She received PRBC transfusions. She does appear to be somewhat symptomatically improved. The etiology appears to be concerning for relationship to a colonic mass lesion. This is pending surgical evaluation and care. The anemia does present issues with respect to further cardiovascular evaluation either noninvasively or invasively at this time. Certainly from an invasive standpoint it may be challenging to further evaluate the patient for if she would have the need for additional antiplatelet or anticoagulant therapy it may not be able to be used at this time secondary to concerns of the anemia process. It would be prudent to keep her hemoglobin, especially in light of any cardiovascular concerns, as close to 10 or above as possible. This may help improve her oxygen carrying capacity. 4. MR He does have an element of MR based on her examination and her echocardiographic findings. It does not appear, based on her echocardiographic findings, that this is hemodynamically significant to be the etiology of her underlying cardiomyopathy or concerns of volume overload. 5. TR Again the patient does have an element of TR. It was listed as mild to moderate on her echocardiogram. It may be secondary to concerns of her underlying elevated pulmonary pressures. 6. Pulmonary hypertension He does have an element of pulmonary hypertension. The etiology is unclear at this time. This may not necessarily be all cardiovascular related. She should continue to be monitored and supported as deemed appropriate as she goes through her medical and surgical evaluation care. 7. Colonic mass She has been evaluated by general surgery. She is pending upcoming surgical resection for further evaluation and care. 8. Preoperative cardiovascular examination This is a 66-year-old white female with no known cardiovascular disease who now presents with marked anemia thought secondary to a colonic mass with subsequent findings of volume overload and subsequent noninvasive diagnostic findings suggesting an underlying mild cardiomyopathy. She has been undergoing evaluation and care. She has received PRBCs which have improved her overall status. She is also received diuretic therapy in addition to her PRBCs which appears to improve her lower extremity edema. She is also undergone a left-sided thoracentesis procedure. From a cardiac standpoint she should continue to be monitored with respect to her cardiac rate and rhythm and blood pressure. She should continue to have her hemoglobin supported. She should continue medical therapy for her cardiovascular concerns as noted above. At the moment, based upon a variety of her ongoing medical issues, it was not felt that she required further noninvasive or invasive evaluation or that she was an ideal candidate for additional noninvasive or invasive evaluation from a cardiovascular standpoint at this time. She should have close monitoring of her heart rate, rhythm, blood pressure during and after her surgical procedure. An attempt should be made to avoid volume overload during and after her surgical procedure. She may need to be considered in the future for additional noninvasive or invasive cardiovascular studies depending upon her clinical course, stabilization, etc. The patient's case has been discussed with the patient, her family members present, and Dr. Brooke. This note was generated with [employer] Dictation software. Every effort was made to ensure accuracy, however, computerized marine structural welder mistakes may persist.
[2017-04-29] MEDS: Carvedilol 3.125 MG TABLET PO (23:04)
[2017-04-30] VITALS (10 sets, daily range): BP systolic 100–127; BP diastolic 55–67; PULSE 68–88; RESP 16; TEMP 36.8–37.2; O2SAT 92–94
[2017-04-30] MEDS: Enoxaparin 30 MG/0.3 ML Syringe SC (06:36)
[2017-04-30 06:49] LABS: Hematocrit 31.1 % (37-47)
[2017-04-30 07:09] LABS: Anion Gap 8 (5-15); BUN 26 mg/dL (7-18); BUN/Creat Ratio 23.4 RATIO (10-20); Calcium,Total 7.8 mg/dL (8.5-10.1); Chloride 104 mmol/L (98-107); Creatinine, Serum 1.11 mg/dL (0.55-1.02); EST Glomerular Filtration Rate 52 mL/min (>60); Est Glom Filt Rate - Afr Amer 63 mL/min (>60); Estimated Creatinine Clearance 36.75 ml/min; Glucose 98 mg/dL (70-110); Potassium 3.9 mmol/L (3.5-5.1); Sodium Level 143 mmol/L (136-145)
[2017-04-30] MEDS: Carvedilol 3.125 MG TABLET PO ×2 (09:49→21:53)
[2017-04-30] MEDS: Furosemide 40 MG/4 ML Vial IV (09:49)
[2017-04-30] MEDS: Ferrous Sulfate 325 MG Tablet PO ×2 (09:49→18:05)
[2017-04-30] MEDS: Lisinopril 5 MG Tablet PO ×2 (09:50→21:53)
[2017-04-30] MEDS: Sertraline 50 MG Tablet PO (09:50)
[2017-04-30] MEDS: Famotidine 20 MG Tablet 40 MG PO (09:50)
--- NOTE | 2017-04-30 15:16 | PCM.PN.CARD ---
Subjectve: The patient is awake and alert. She denies any acute chest discomfort or difficulty breathing. She notes she still has an element of lower extremity edema although it is improved compared to previous. Objective: Vital Signs Temp Pulse Resp BP Pulse Ox 98.6 F 79 16 127/67 H 92 04/30/17 09:40 04/30/17 14:55 04/30/17 09:40 04/30/17 09:40 04/30/17 09:40 Oxygen Flow Rate 2 Oxygen Delivery Method Room Air Weight: 102 lb 15.294 oz Body Mass Index (BMI) 23.8 Intake and Output for Last 24 Hours 04/28/17 04/29/17 04/30/17 23:59 23:59 23:59 Intake Total 1580 / 1580 964 / 964 240 / 240 Output Total 3725 / 3725 4225 / 4225 500 / 500 Balance -2145 / -2145 -3261 / -3261 -260 / -260 General: Awake, Alert, Oriented x 3, Cooperative, No Acute Distress Lungs: Clear to auscultation Cardiovascular: Regular Rhythm, Normal S1, Normal S2 Murmur Murmur: Grade 2/6, Harsh, Mid Systolic, LLSB, LVOT Abdomen: Bowel Sounds Present, Soft, Non Tender Extremities: Mild RLE Edema, Mild LLE Edema 04/30/17 05:57: Hgb 9.0 L, Hct 31.1 L 04/30/17 05:57: Sodium 143, Potassium 3.9, Chloride 104, Carbon Dioxide 31.0, Anion Gap 8, BUN 26 H, Creatinine 1.11 H, Est GFR (MDRD) Af Amer 63, Est GFR (MDRD) Non-Af 52 L, BUN/Creatinine Ratio 23.4 H, Glucose 98, Calcium 7.8 L Rhythm: Sinus rhythm Assessment/Plan 1. Cardiomyopathy The patient has been found by noninvasive studies to have concerns of an underlying cardiomyopathy based upon the parents of her ventricle being mildly globally impaired. It is unclear as to how long this has been present in the patient. Her cardiomyopathy could contribute to her underlying findings of her volume overload compatible with CHF based upon symptoms, pleural effusions, peripheral edema, etc. However at the same time she has been noted to have low total protein and albumin levels which could contribute to third spacing leading to her physical examination findings as well. At the present time she is being followed. She is being treated medically. He has initiated beta-issa therapy in addition to her other medications. She appears to be tolerating this thus far. She may eventually need further evaluation of this cardiomyopathy with respect to any evidence of contribution from coronary artery disease. This may come noninvasively or invasively. However at the moment, based upon her ongoing clinical course with respect to her concerns of her anemia, colonic mass lesion, etc. requiring upcoming surgery, it appears that she will continue conservative medical management and be considered for further evaluation in the future. 2. Congestive heart failure It is unclear as to whether her signs and symptoms compatible with CHF are all related to her underlying finding of a cardiomyopathy (mild) versus being related to concerns of her low protein and low albumin levels and third setting versus being related to a potential high output failure secondary to her underlying anemia. There may be a combination of factors contributing to this. The moment she does appear to be clinically improved status post receiving PRBCs and diuretic therapy. She will need to continue medical management. Again this can conclude multiple agents as deemed appropriate such as nitrates, beta-blockers, diuretics, afterload reducing agents, etc. 3. Anemia The patient is anemic. She received PRBC transfusions. She does appear to be somewhat symptomatically improved. The etiology appears to be concerning for relationship to a colonic mass lesion. This is pending surgical evaluation and care. The anemia does present issues with respect to further cardiovascular evaluation either noninvasively or invasively at this time. Certainly from an invasive standpoint it may be challenging to further evaluate the patient for if she would have the need for additional antiplatelet or anticoagulant therapy it may not be able to be used at this time secondary to concerns of the anemia process. It would be prudent to keep her hemoglobin, especially in light of any cardiovascular concerns, as close to 10 or above as possible. This may help improve her oxygen carrying capacity. 4. MR He does have an element of MR based on her examination and her echocardiographic findings. It does not appear, based on her echocardiographic findings, that this is hemodynamically significant to be the etiology of her underlying cardiomyopathy or concerns of volume overload. 5. TR Again the patient does have an element of TR. It was listed as mild to moderate on her echocardiogram. It may be secondary to concerns of her underlying elevated pulmonary pressures. 6. Pulmonary hypertension He does have an element of pulmonary hypertension. The etiology is unclear at this time. This may not necessarily be all cardiovascular related. She should continue to be monitored and supported as deemed appropriate as she goes through her medical and surgical evaluation care. 7. Colonic mass She has been evaluated by general surgery. She is pending upcoming surgical resection for further evaluation and care. In the interim she stated she noted blood in her bowel movement this morning. Thus she will continue evaluation care per internal medicine and general surgery with follow-up laboratory studies and additional therapy such as additional PRBCs, etc., as needed. The patient's case has been discussed with the patient and Dr. Brooke. This note was generated with [employer] Dictation software. Every effort was made to ensure accuracy, however, computerized cloth finishing range back tender mistakes may persist.
--- NOTE | 2017-04-30 15:26 | PCM.PROGNOTE ---
Patient Problems: Active and Suspected Problems CHF (congestive heart failure) (Acute) Coagulopathy (Acute) Elevated TSH (Acute) With a normal T4 Cardiomyopathy (Acute) Pulmonary hypertension (Acute) Pulmonary artery systolic pressure estimated at 56.... Tricuspid regurgitation (Acute) Mitral regurgitation (Acute) Colonic mass (Acute) Preop cardiovascular exam (Acute) Subjective: All events of the past 24 hours of been reviewed. She remains afebrile with stable vital signs. Fluid balance since admission is -18,301. Weight on was 154 pounds and today is 102 pounds. Globin is stable at 9.0. Electrolytes are within normal limits and the BUN is 26 with a creatinine of 1.11 which is now starting to increase. Serum bicarb is 31 today. Seen in consult by Dr. Campbell and it is not felt that tom will require additional cardiac W/U prior to the planned R hemicolectomy on Tuesday. No complaints. Her biggest worry is what she is going to be able to eat tomorrow and if her sister checked out the NH today. Denies lightheadedness. No CP or SOB - Physical Exam General: Alert, Oriented x3, Cooperative, No apparent distress HEENT: Atraumatic, PERRLA, EOMI, Normocephalic Oral: Moist Mucosa Neck: Supple, No JVD, Trachea Midline Lungs: No wheeze, - - better air exchange in the left base. still with diminished BS's in the right base...no rales. She is not tachypneic and she has not conversational dyspnea. She is speaking in full sentences and has no accessory muscle use. Cardiovascular: Regular rate, Regular Rhythm, Normal S1, Normal S2, No Ectopic Activity, No Gallop Abdomen: Soft, Non Tender, Non-Distended Extremities: No clubbing, No cyanosis, Edema - she still has pitting edema in the dependent portions of both LE's. no flank edema Skin: No rashes, No breakdown Neurological: Cranial nerves II-XII grossly intact, Neuro grossly intact Vital Signs Temp Pulse Resp BP Pulse Ox 98.6 F 79 16 127/67 H 92 04/30/17 09:40 04/30/17 14:55 04/30/17 09:40 04/30/17 09:40 04/30/17 09:40 Oxygen Flow Rate 2 Oxygen Delivery Method Room Air Weight: 102 lb 15.294 oz Body Mass Index (BMI) 23.8 Intake and Output for Last 24 Hours 04/28/17 04/29/17 04/30/17 23:59 23:59 23:59 Intake Total 1580 / 1580 964 / 964 240 / 240 Output Total 3725 / 3725 4225 / 4225 500 / 500 Balance -2145 / -2145 -3261 / -3261 -260 / -260 Microbiology Past 72 Hours 04/29/17 09:45 Gram Stain - Final Fluid - Thoracentesis Fluid Body Fluid Culture - Preliminary No growth-Final to follow 04/29/17 06:00 Streptococcus pneumoniae Antigen (M - Final Interface Orders 04/29/17 06:00 Legionella Antigen - Final Interface Orders Laboratory Tests Past 24 Hrs 04/30/17 04/30/17 05:57 05:57 Hgb 9.0 L Hct 31.1 L Sodium 143 Potassium 3.9 Chloride 104 Carbon Dioxide 31.0 Anion Gap 8 BUN 26 H Creatinine 1.11 H Estim Creat Clear Calc 36.75 Est GFR (MDRD) Af Amer 63 Est GFR (MDRD) Non-Af 52 L BUN/Creatinine Ratio 23.4 H Glucose 98 Calcium 7.8 L Assessment/Plan Active and Suspected Problems CHF (congestive heart failure) (Acute) Coagulopathy (Acute) Elevated TSH (Acute) With a normal T4 Cardiomyopathy (Acute) Pulmonary hypertension (Acute) Pulmonary artery systolic pressure estimated at 56.... Tricuspid regurgitation (Acute) Mitral regurgitation (Acute) Colonic mass (Acute) Preop cardiovascular exam (Acute) Impressions 1. severe anemia - due to iron deficiency. Stool Hemoccult negative. 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 Hemicolectomy 05/03/17 2. Acute systolic congestive heart failure. Echocardiogram shows a 47% ejection fraction with no wall motion abnormalities. CHF multifactorial. Due to mildly decreased EF, malnutrition, HGB of 3.2 and inability of the heart to meet the metabolic demands of the body 3. 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 Reports that her mother always hid things and swept them under the carpet. When her mother 12 years ago everything escalated. Plan on an ECF at [facility] 4. Coagulopathy with a PT of 18.3 at admission - likely due to malnutrition. Has corrected with Vitamin K 5. chronic renal failure stage III-suspect due to long-standing hypertension and noncompliance with medication 6. MR, TR, moderate pulmonary hypertension (56), mild biatrial enlargement - will need to repeat the ECHO in 3-6 months since the CM may be due to the malnutrition and the increased pulmonary pressure may be due to the pulmonary edema 7. Increased TSH with a normal T4 8. Hypophosphatemia- resolved with supplementation DC the nash. reviewed Dr. Antonio's note OK per cardiology for surgery Tuesday....AVOID over zealous hydration in the OR DC the IV lasix since the serum bicarb and the creat are starting to increase. Lasix 40 mg PO daily Recheck a BMP tomorrow Type and screen tomorrow for planned surgery on Tuesday Will need to see an oncologist going forward Code Visit Inpatient E&M: 08288 Subs Hosp L2
--- NOTE | 2017-04-30 16:21 | PCM.PN.SRG ---
Patient Problems: Active and Suspected Problems CHF (congestive heart failure) (Acute) Coagulopathy (Acute) Elevated TSH (Acute) With a normal T4 Cardiomyopathy (Acute) Pulmonary hypertension (Acute) Pulmonary artery systolic pressure estimated at 56.... Tricuspid regurgitation (Acute) Mitral regurgitation (Acute) Colonic mass (Acute) Preop cardiovascular exam (Acute) Subjective: patient comfortable - Physical Exam General: Alert, Oriented x3, Cooperative Neck: Supple, No JVD, Negative Carotid Bruits Lungs: Clear to auscultation, Normal air movement Cardiovascular: Regular rate, No murmurs Abdomen: Bowel Sounds Present, Soft, Non Tender Vital Signs Temp Pulse Resp BP Pulse Ox 99.0 F 80 16 100/55 L 92 04/30/17 15:32 04/30/17 15:32 04/30/17 15:32 04/30/17 15:32 04/30/17 15:32 Oxygen Flow Rate 2 Oxygen Delivery Method Room Air Weight: 46.7 kg Body Mass Index (BMI) 23.8 Intake and Output for Last 24 Hours 04/28/17 04/29/17 04/30/17 23:59 23:59 23:59 Intake Total 1580 / 1580 964 / 964 240 / 240 Output Total 3725 / 3725 4225 / 4225 1300 / 1300 Balance -2145 / -2145 -3261 / -3261 -1060 / -1060 Microbiology Past 72 Hours 04/29/17 09:45 Gram Stain - Final Fluid - Thoracentesis Fluid Body Fluid Culture - Preliminary No growth-Final to follow 04/29/17 06:00 Streptococcus pneumoniae Antigen (M - Final Interface Orders 04/29/17 06:00 Legionella Antigen - Final Interface Orders Laboratory Tests Past 24 Hrs 04/30/17 04/30/17 05:57 05:57 Hgb 9.0 L Hct 31.1 L Sodium 143 Potassium 3.9 Chloride 104 Carbon Dioxide 31.0 Anion Gap 8 BUN 26 H Creatinine 1.11 H Estim Creat Clear Calc 36.75 Est GFR (MDRD) Af Amer 63 Est GFR (MDRD) Non-Af 52 L BUN/Creatinine Ratio 23.4 H Glucose 98 Calcium 7.8 L Assessment/Plan Active and Suspected Problems CHF (congestive heart failure) (Acute) Coagulopathy (Acute) Elevated TSH (Acute) With a normal T4 Cardiomyopathy (Acute) Pulmonary hypertension (Acute) Pulmonary artery systolic pressure estimated at 56.... Tricuspid regurgitation (Acute) Mitral regurgitation (Acute) Colonic mass (Acute) Preop cardiovascular exam (Acute) right colon carcinoma. Plan for Dr. Quintero to perform laparoscopic right hemicolectomy on Tuesday. Patient has been eating a regular diet. We'll perform a light bowel prep tomorrow with antibiotic neomycin/Flagyl for bowel preparation.
[2017-05-01] VITALS (11 sets, daily range): BP systolic 106–129; BP diastolic 49–73; PULSE 58–82; RESP 16; TEMP 36.7–37.2; O2SAT 94–95
[2017-05-01] MEDS: Enoxaparin 30 MG/0.3 ML Syringe SC (05:46)
[2017-05-01 07:38] LABS: BUN 29 mg/dL (7-18); Creatinine, Serum 1.03 mg/dL (0.55-1.02); Estimated Creatinine Clearance 48.35 ml/min; Glucose 102 mg/dL (70-110)
[2017-05-01 07:39] LABS: Anion Gap 7 (5-15); BUN/Creat Ratio 28.2 RATIO (10-20); Calcium,Total 7.9 mg/dL (8.5-10.1); Chloride 108 mmol/L (98-107); EST Glomerular Filtration Rate 57 mL/min (>60); Est Glom Filt Rate - Afr Amer 69 mL/min (>60); Potassium 4.3 mmol/L (3.5-5.1); Sodium Level 143 mmol/L (136-145)
[2017-05-01] MEDS: Ferrous Sulfate 325 MG Tablet PO ×2 (08:08→16:34)
[2017-05-01] MEDS: Carvedilol 3.125 MG TABLET PO ×2 (10:17→22:31)
[2017-05-01] MEDS: Sertraline 50 MG Tablet PO (10:17)
[2017-05-01] MEDS: Famotidine 20 MG Tablet 40 MG PO (10:17)
[2017-05-01] MEDS: Furosemide 40 MG Tablet PO (10:17)
[2017-05-01] MEDS: Lisinopril 5 MG Tablet PO ×2 (10:17→22:31)
--- NOTE | 2017-05-01 10:59 | PCM.PN.SRG ---
Patient Problems: Active and Suspected Problems CHF (congestive heart failure) (Acute) Coagulopathy (Acute) Elevated TSH (Acute) With a normal T4 Cardiomyopathy (Acute) Pulmonary hypertension (Acute) Pulmonary artery systolic pressure estimated at 56.... Tricuspid regurgitation (Acute) Mitral regurgitation (Acute) Colonic mass (Acute) Preop cardiovascular exam (Acute) Subjective: Complain of generalized deconditioning and left more than right sided weakness - Physical Exam General: Alert, Oriented x3 Lungs: Clear to auscultation, Normal air movement Cardiovascular: Regular rate, Regular Rhythm Abdomen: Bowel Sounds Present, Soft, Non Tender Neurological: - - symmetric strength, but overall deconditioned Vital Signs Temp Pulse Resp BP Pulse Ox 98.3 F 72 16 129/64 H 95 05/01/17 08:05 05/01/17 08:05 05/01/17 08:05 05/01/17 08:05 05/01/17 08:05 Oxygen Flow Rate 2 Oxygen Delivery Method Room Air Weight: 61.8 kg Body Mass Index (BMI) 23.8 Intake and Output for Last 24 Hours 04/29/17 04/30/17 05/01/17 23:59 23:59 23:59 Intake Total 964 / 964 720 / 720 180 / 180 Output Total 4225 / 4225 1600 / 1600 300 / 300 Balance -3261 / -3261 -880 / -880 -120 / -120 Microbiology Past 72 Hours 04/29/17 09:45 Gram Stain - Final Fluid - Thoracentesis Fluid Body Fluid Culture - Preliminary No growth-Final to follow 04/29/17 06:00 Streptococcus pneumoniae Antigen (M - Final Interface Orders 04/29/17 06:00 Legionella Antigen - Final Interface Orders Laboratory Tests Past 24 Hrs 05/01/17 05:45 Sodium 143 Potassium 4.3 Chloride 108 H Carbon Dioxide 28.0 Anion Gap 7 BUN 29 H Creatinine 1.03 H Estim Creat Clear Calc 48.35 Est GFR (MDRD) Af Amer 69 Est GFR (MDRD) Non-Af 57 L BUN/Creatinine Ratio 28.2 H Glucose 102 Calcium 7.9 L Assessment/Plan Active and Suspected Problems CHF (congestive heart failure) (Acute) Coagulopathy (Acute) Elevated TSH (Acute) With a normal T4 Cardiomyopathy (Acute) Pulmonary hypertension (Acute) Pulmonary artery systolic pressure estimated at 56.... Tricuspid regurgitation (Acute) Mitral regurgitation (Acute) Colonic mass (Acute) Preop cardiovascular exam (Acute) right colon carcinoma. Plan for Dr. Quintero to perform laparoscopic right hemicolectomy on Tuesday. Patient has been eating a regular diet. We'll perform a light bowel prep this afternoon with antibiotic neomycin/Flagyl for bowel preparation. discussed with patient the risks, benefits, possible complications and alternatives to laparoscopic right hemicolectomy. Patient understands those risks. In discussions with the patient, overall, she states between her congestive heart failure issues and her overall weakness secondary to likely anemia. She is somewhat deconditioned. We will order physical therapy evaluation for postoperative strengthening and reconditioning.
--- NOTE | 2017-05-01 12:28 | PN_ITS ---
Patient Problems: Active and Suspected Problems CHF (congestive heart failure) (Acute) Coagulopathy (Acute) Elevated TSH (Acute) With a normal T4 Cardiomyopathy (Acute) Pulmonary hypertension (Acute) Pulmonary artery systolic pressure estimated at 56.... Tricuspid regurgitation (Acute) Mitral regurgitation (Acute) Colonic mass (Acute) Preop cardiovascular exam (Acute) Subjective: 66-year-old female admitted to the hospital with severe fatigue and shortness of breath secondary to severe iron deficiency anemia with hemoglobin of 3.2. She also had 4+ anasarca along with pleural effusions and malnutrition. She was transfused with 5 units of PRBC's and her HGB has been stable since transfusion. Echo showed a 47% ejection fraction with no wall motion abnormalities. There was no significant valvular heart disease but the PA was increased at 56....possibly due to the acute pulmonary edema. EGD was unremarkable but, colonoscopy revealed right colon tumor. Patient is scheduled for hemicolectomy on 05/02/17. She has been seen by Cardiology pre-op. She had a thoracentesis because of the effusions and the results are consistent with transudate. The decrease in EF may be due to stress of severe anemia. She is afebrile with stable vital signs. Fluid balance since admission is -18,661. Bowel prep was ordered for today in preparation for gillian-colectomy 05/02 HGB is 9.0 and stable. Final culture on the pleural fluid is negative. - Physical Exam General: Alert, Cooperative, No apparent distress Oral: Moist Mucosa Lungs: Clear to auscultation Cardiovascular: Regular rate, Regular Rhythm, Normal S1, Normal S2, No Gallop Abdomen: Bowel Sounds Present, Soft, Non Tender, Non-Distended, No Hepato- splenomegaly Extremities: Edema - still with pitting edema of the distal LE's and the posterior thighs. Skin: No rashes Neurological: Cranial nerves II-XII grossly intact, Neuro grossly intact Psych/Mental Status: Appropriate Vital Signs Temp Pulse Resp BP Pulse Ox 98.3 F 72 16 129/64 H 95 05/01/17 08:05 05/01/17 08:05 05/01/17 08:05 05/01/17 08:05 05/01/17 08:05 Oxygen Flow Rate 2 Oxygen Delivery Method Room Air Weight: 136 lb 3.931 oz Body Mass Index (BMI) 23.8 Intake and Output for Last 24 Hours 04/29/17 04/30/17 05/01/17 23:59 23:59 23:59 Intake Total 964 / 964 720 / 720 560 / 560 Output Total 4225 / 4225 1600 / 1600 300 / 300 Balance -3261 / -3261 -880 / -880 260 / 260 Microbiology Past 72 Hours 04/29/17 09:45 Gram Stain - Final Fluid - Thoracentesis Fluid Body Fluid Culture - Preliminary No growth-Final to follow 04/29/17 06:00 Streptococcus pneumoniae Antigen (M - Final Interface Orders 04/29/17 06:00 Legionella Antigen - Final Interface Orders Laboratory Tests Past 24 Hrs 05/01/17 05:45 Sodium 143 Potassium 4.3 Chloride 108 H Carbon Dioxide 28.0 Anion Gap 7 BUN 29 H Creatinine 1.03 H Estim Creat Clear Calc 48.35 Est GFR (MDRD) Af Amer 69 Est GFR (MDRD) Non-Af 57 L BUN/Creatinine Ratio 28.2 H Glucose 102 Calcium 7.9 L Assessment/Plan Active and Suspected Problems CHF (congestive heart failure) (Acute) Coagulopathy (Acute) Elevated TSH (Acute) With a normal T4 Cardiomyopathy (Acute) Pulmonary hypertension (Acute) Pulmonary artery systolic pressure estimated at 56.... Tricuspid regurgitation (Acute) Mitral regurgitation (Acute) Colonic mass (Acute) Preop cardiovascular exam (Acute) Impressions 1. severe anemia - due to iron deficiency. Stool Hemoccult negative. 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 Hemicolectomy 05/03/17 2. Acute systolic congestive heart failure. Echocardiogram shows 47% ejection fraction with no wall motion abnormalities. CHF multifactorial. Due to mildly decreased EF, malnutrition, HGB of 3.2 and inability of the heart to meet the metabolic demands of the body. 3. 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 Reports that her mother always hid things and swept them under the carpet. When her mother 12 years ago everything escalated. [facility] 4. Coagulopathy with a PT of 18.3 at admission - likely due to malnutrition. Has corrected with Vitamin K 5. chronic renal failure stage III-suspect due to long-standing hypertension and noncompliance with medication 6. MR, TR, moderate pulmonary hypertension (56), mild biatrial enlargement - will need to repeat the ECHO in 3-6 months since the CM may be due to the malnutrition and the increased pulmonary pressure may be due to the pulmonary edema 7. Increased TSH with a normal T4 8. Hypophosphatemia- resolved with supplementation 9. the persistent edema of the LE's is likely due to malnutrition. Lungs are much better. Currently on oral Lasix but will need to restart IV Lasix when she is NPO after surgery Surgery 05/03 Convert to IV lasix 40 mg BID after surgery. Try and keep the I&O's even after surgery and avoid over hydration We will need consult with oncology when she is recovered from the surgery Continue nutritional supplements Should repeat an echocardiogram in 6-8 weeks to see if her ejection fraction improves with resolution of anemia and resolution of malnutrition. If the low ejection fraction persists should probably have a stress test or cardiac cath to exclude CAD as the etiology of the mild CM Code Visit Inpatient E&M: 85065 Subs Hosp L2
--- NOTE | 2017-05-01 13:33 | PCM.PN.CARD ---
Subjectve: The patient appears to be resting comfortably. She has no new acute cardiovascular complaints. Objective: Vital Signs Temp Pulse Resp BP Pulse Ox 98.3 F 72 16 129/64 H 95 05/01/17 08:05 05/01/17 11:54 05/01/17 08:05 05/01/17 08:05 05/01/17 08:05 Oxygen Flow Rate 2 Oxygen Delivery Method Room Air Weight: 136 lb 3.931 oz Body Mass Index (BMI) 23.8 Intake and Output for Last 24 Hours 04/29/17 04/30/17 05/01/17 23:59 23:59 23:59 Intake Total 964 / 964 720 / 720 560 / 560 Output Total 4225 / 4225 1600 / 1600 300 / 300 Balance -3261 / -3261 -880 / -880 260 / 260 General: Awake, Alert, Oriented x 3, Cooperative, No Acute Distress Lungs: Clear to auscultation Cardiovascular: Normal S1 Abdomen: Bowel Sounds Present, Soft, Non Tender Extremities: Mild RLE Edema, Mild LLE Edema 05/01/17 05:45: Sodium 143, Potassium 4.3, Chloride 108 H, Carbon Dioxide 28.0, Anion Gap 7, BUN 29 H, Creatinine 1.03 H, Est GFR (MDRD) Af Amer 69, Est GFR (MDRD) Non-Af 57 L, BUN/Creatinine Ratio 28.2 H, Glucose 102, Calcium 7.9 L Rhythm: Sinus rhythm Assessment/Plan 1. Cardiomyopathy The patient has been found by noninvasive studies to have concerns of an underlying cardiomyopathy based upon the parents of her ventricle being mildly globally impaired. It is unclear as to how long this has been present in the patient. Her cardiomyopathy could contribute to her underlying findings of her volume overload compatible with CHF based upon symptoms, pleural effusions, peripheral edema, etc. However at the same time she has been noted to have low total protein and albumin levels which could contribute to third spacing leading to her physical examination findings as well. At the present time she is being followed. She is being treated medically. He has initiated beta-issa therapy in addition to her other medications. She appears to be tolerating this thus far. She may eventually need further evaluation of this cardiomyopathy with respect to any evidence of contribution from coronary artery disease. This may come noninvasively or invasively. However at the moment, based upon her ongoing clinical course with respect to her concerns of her anemia, colonic mass lesion, etc. requiring upcoming surgery, it appears that she will continue conservative medical management and be considered for further evaluation in the future. 2. Congestive heart failure It is unclear as to whether her signs and symptoms compatible with CHF are all related to her underlying finding of a cardiomyopathy (mild) versus being related to concerns of her low protein and low albumin levels and third setting versus being related to a potential high output failure secondary to her underlying anemia. There may be a combination of factors contributing to this. The moment she does appear to be clinically improved status post receiving PRBCs and diuretic therapy. She will need to continue medical management. Again this can conclude multiple agents as deemed appropriate such as nitrates, beta-blockers, diuretics, afterload reducing agents, etc. 3. Anemia The patient is anemic. She received PRBC transfusions. She does appear to be somewhat symptomatically improved. The etiology appears to be concerning for relationship to a colonic mass lesion. This is pending surgical evaluation and care. The anemia does present issues with respect to further cardiovascular evaluation either noninvasively or invasively at this time. Certainly from an invasive standpoint it may be challenging to further evaluate the patient for if she would have the need for additional antiplatelet or anticoagulant therapy it may not be able to be used at this time secondary to concerns of the anemia process. It would be prudent to keep her hemoglobin, especially in light of any cardiovascular concerns, as close to 10 or above as possible. This may help improve her oxygen carrying capacity. 4. MR He does have an element of MR based on her examination and her echocardiographic findings. It does not appear, based on her echocardiographic findings, that this is hemodynamically significant to be the etiology of her underlying cardiomyopathy or concerns of volume overload. 5. TR Again the patient does have an element of TR. It was listed as mild to moderate on her echocardiogram. It may be secondary to concerns of her underlying elevated pulmonary pressures. 6. Pulmonary hypertension He does have an element of pulmonary hypertension. The etiology is unclear at this time. This may not necessarily be all cardiovascular related. She should continue to be monitored and supported as deemed appropriate as she goes through her medical and surgical evaluation care. 7. Colonic mass She has been evaluated by general surgery. She is pending upcoming surgical resection for further evaluation and care. This is tentatively scheduled for tomorrow. The patient's case has been discussed with the patient and Dr. Brooke. This note was generated with [employer] software. Every effort was made to ensure accuracy, however, computerized staffing executive mistakes may persist.
[2017-05-01] MEDS: Electrolyte Solution/Peg's 4000 ML 2000 ML PO (16:32)
[2017-05-01] MEDS: metroNIDAZOLE 500 MG Tablet 1000 MG PO ×3 (17:53→22:24)
[2017-05-02] VITALS (21 sets, daily range): BP systolic 90–136; BP diastolic 47–81; PULSE 48–73; RESP 10–16; TEMP 36.3–37.3; O2SAT 92–100; BMI 22.6; BMI 22.5; BMI 27.9
--- NOTE | 2017-05-02 | IMM_PTH ---
PATIENT: MARISABEL MCHUGH LOC: [facility] U#:[id number] AGE/SX: 66/F ROOM: [facility] RE04/25/[address]: Dr. Thomas Dowling DO : 1950 BED: 1 DIS: 05/06/2017 SPEC #: [id number] RECD: 05/05/17 09:18 STATUS: [place] REQ #: [id number] SANDHYA: 05/02/17 00:[address]: Vesta Quintero DEPT: IMMUNOHISTOCHEMISTRY RECD BY: Shaniqua Weems ENTERED: 05/05/17 09:21 SP TYPE: IMMUNO OTHR DR: DO Dr. Thomas Bentley DO Dr. Nhan Luu, MD Dr. Paul Moodispaw, MD No Primary Care Phys Tissues: Right colon Procedures: MLH-1 (add) MSH6 (add) Anti-PMS2 (add) THOMPSON-2 (add) HER2 CINDA (add) KI-67 (add) P53 (add) MSH2 (initial) Comments: @ Ordering doctor for MLH1. edited from to DR.LWANG Thomas by MICK at 05/05/17 09 @ Ordering doctor for MSH6. edited from to DR.LWANG Thomas by MICK at 05/05/1729 @ Ordering doctor for PMS2. edited from to DR.LWANG Thomas by MICK at 05/05/17928 @ Ordering doctor for THOMPSON-2. edited from to DR.LWANG Thomas by MICK at 05/05/17 0929 @ Ordering doctor for HER2. edited from to DR.LWANG Thomas by MICK at 05/05/17 09 @ Ordering doctor for KI67. edited from to DR.LWANG William BARTON at 05/05/17928 @ Ordering doctor for P53. edited from to DR.LWANG William BARTON at 05/05/17928 @ Ordering doctor for MSH2 edited from to DR.LWANG William BARTON at 05/05/17928 @ Submitting doctor edited from to DR.LWANG William BARTON at 05/05/17928 PHYSICIAN & [place] [id number] SPECIMEN INFORMATION: Tissue Source: Right colon Clinical Info: Severe symptomatic anemia Specimen Number: [id number] #14 CPT code: 00494, 51587 x7 METHODOLOGY: Deparaffinized sections of prefer/formalin-fixed tissue or PAP/DQ stained slides are incubated with monoclonal/polyclonal antibodies/oligonucleotide probes. Localization is made via biotin free immunoperoxidase method. Appropriate controls are performed and reacted as expected. Results on target cell population are indicated in the following table: RESULTS: ANTIBODY / CLONE RESULT Block 14 COLON CANCER PROFILE (Prognostic Markers) Ki-67 (30-9) positive, moderate to high P53 (DO-7) positive, >95% MSH2 (25D12) positive MSH6 (44) positive MLH-1 (M1) positive PMS2 ([id number]) positive THOMPSON-2 (SP21) positive Her-2neu (CB11) negative These tests were developed and their performance characteristics determined by [facility]. They may not have been cleared or approved by the U.S. Food and Drug Administration. The FDA has determined that such clearance or approval is not necessary. INTERPRETATION: Right colon, hemicolectomy: Invasive adenocarcinoma. Result of Microsatellite Instability Study: Negative (no loss of mismatch protein; no microsatellite instability detected). AM:steven 05/05/17
--- NOTE | 2017-05-02 05:55 | EKG12_ITS ---
Test Reason : AM EKG Blood Pressure : / mmHG Vent. Rate : 061 BPM Atrial Rate : 061 BPM P-R Int : 170 ms QRS Dur : 104 ms QT Int : 460 ms P-R-T Axes : 011 002 091 degrees QTc Int : 463 ms Normal sinus rhythm T wave abnormality, consider lateral ischemia Abnormal ECG When compared with ECG of 28-APR-2017 04:59, MANUAL COMPARISON REQUIRED, DATA IS UNCONFIRMED Confirmed by EVA ANDRES ([id number]), news editor CINDY KNUTSON ([id number]) on 05/05/2017 1:58:35 PM Referred By: DAWOOD Confirmed By:EVA ANDRES
[2017-05-02 06:17] LABS: International Normalized Ratio 1.2; Prothrombin Time (Protime)PT. 14.9 SECONDS (11.7-14.9)
[2017-05-02 06:18] LABS: Partial Thromboplast Time 28.4 Seconds (24.1-36.2)
[2017-05-02 06:26] LABS: Absolute Lymphocyte Count 0.49 X10^3/ul (0.83-4.51); Basophil# 0.02 X10^3/uL; Basophil% 0.4 % (0-1); Eosinophil# 0.12 X10^3/uL; Eosinophils% 2.4 % (0-5); Hematocrit 32.2 % (37-47); Hemoglobin 9.4 g/dl (12.0-15.0); Lymphocyte # 0.49 X10^3/ul (4.0); Lymphocyte % 9.6 % (19-41); Mean Corp Hgb Conc 29.2 g/gl (32-36); Mean Corpuscular Hgb 26.1 pg (27.0-32.0); Mean Corpuscular Volume 89.4 fL (81-99); Mean Platelet Vol. 9.8 fl (6.2-12.0); Monocyte# 0.44 X10^3/uL; Monocyte% 8.7 % (0-10); Neutrophil % 78.7 % (47-70); Platelet Count 286 K/mm3 (150-450); RBC Distribution Width CV 22.6 % (11.6-14.6); RBC Distribution Width SD 69.1 fl (35.1-43.9); White Blood Count 5.1 K/mm3 (4.4-11.0)
[2017-05-02 06:29] LABS: Differential Indicated SCAN CRITERIA MET; POSITIVE COUNT NO; POSITIVE DIFFERENTIAL YES; POSITIVE MORPHOLOGY YES
[2017-05-02 06:36] LABS: BUN 20 mg/dL (7-18); Estimated Creatinine Clearance 47.79 ml/min; Glucose 91 mg/dL (70-110)
[2017-05-02 06:37] LABS: Albumin, Serum 2.3 g/dL (3.4-5.0); Anion Gap 7 (5-15); BUN/Creat Ratio 28.5 RATIO (10-20); Calcium,Total 7.8 mg/dL (8.5-10.1); Chloride 106 mmol/L (98-107); EST Glomerular Filtration Rate 89 mL/min (>60); Est Glom Filt Rate - Afr Amer 107 mL/min (>60); Potassium 4.2 mmol/L (3.5-5.1); Sodium Level 140 mmol/L (136-145)
[2017-05-02 06:54] LABS: Differential Comment SCANNED; Hypochromasia 3+; Macrocytosis 2+
[2017-05-02] MEDS: Carvedilol 3.125 MG TABLET PO (08:14)
[2017-05-02] MEDS: Famotidine 20 MG Tablet 40 MG PO (08:14)
[2017-05-02] MEDS: Lisinopril 5 MG Tablet PO (08:15)
--- NOTE | 2017-05-02 08:34 | NURSING ---
SBAR report called to Nurse Simon in PACU. Notified that patient does not want male caregivers. Antibiotic sent on chart.
--- NOTE | 2017-05-02 10:00 | COL_PTH ---
PATIENT: MARISABEL MCHUGH LOC: [facility] U#:[id number] AGE/SX: 66/F ROOM: [facility] RE04/25/[address]: Dr. Thomas Dowling DO : 1950 BED: 1 DIS: 05/06/2017 SPEC #: [id number] RECD: 05/02/17 15:07 STATUS: [place] REQ #: [id number] SANDHYA: 05/02/17 10:[address]: Vesta Quintero DEPT: SURGICAL PATHOLOGY RECD BY: Bubba Reynolds ENTERED: 05/02/17 15:08 SP TYPE: COLON OTHR DR: DO Dr. Thomas Bentley DO Dr. Nhan Luu, MD Dr. Paul Moodispaw, MD No Primary Care Phys Tissues: Colon, NOS Procedures: Surgery Specimen Level Comments: @ Ordering doctor for SUVI edited from to DR.LWANG Thomas by MICK at 05/05/17928 @ Submitting doctor edited from to DR.LWANG Thomas by MICK at 05/05/1729 HEADER OPERATION: Laparoscopic, hemicolectomy PRE-OP DIAGNOSIS: Severe symptomatic anemia TISSUE SUBMITTED: Right colon MICROSCOPIC DIAGNOSIS Right colon, hemicolectomy: Invasive adenocarcinoma. See cancer checklist below. AM:steven 05/04/17 COMMENT COLON CANCER SUMMARY: Specimen ? right colon Procedure ? right hemicolectomy Tumor site - cecum Tumor size ? 6 x 5 x 0.5 cm Macroscopic tumor perforation ? not identified Histologic type - adenocarcinoma Histologic grade ? low grade (well differentiated to moderately differentiated) Microscopic tumor extension ? tumor invades the subserosal fatty tissue Margins: Proximal margin ? uninvolved by invasive carcinoma Distal margin - uninvolved by invasive carcinoma Circumferential or mesenteric margin - uninvolved by invasive carcinoma Distance of invasive carcinoma from closest mucosal margin ? 2.5 cm proximal margin. Treatment effect - unknown Lymph-Vascular invasion ? not identified Perineural invasion - not identified Tumor deposits - not identified Lymph nodes: Number of lymph nodes examined - 19 Number of lymph nodes involved by invasive carcinoma - 2 Distant metastasis - unknown Ancillary studies: Microsatellite instability (S18-105) Negative (no loss of mismatch protein; no microsatellite instability detected). Immunohistochemistry Studies for Mismatch Repair Proteins: MLH1 - positive MSH2 - positive MSH6 - positive PMS2 ? positive Mutational Analysis: BRAF ? Not performed KRAS - Not performed PATHOLOGIC STAGE: pT3 N1b Mx The above summary is in compliance with College of Stateless Pathology (CAP) Cancer Protocols Checklist and Stateless Joint Committee on Cancer (AJCC), Staging Manual, 8th Ed. Case has been reviewed in consultation with Dr. Romero who concurs with the above diagnosis. IDC:SJ MICROSCOPIC DESCRIPTION Slides are reviewed. GROSS DESCRIPTION Received in fixative is one container labeled with the patient's name and designated right colon. The specimen consists of a right hemicolectomy specimen consisting of cecum with ascending colon, small segment of small intestine and appendix with attached pericolonic adipose tissue. The cecum with ascending colon measures 15 cm in length and segment of small intestine measures 2.5 cm in length and appendix measures 6 cm in length and 0.2 cm in diameter. Focal area of serosal surface close to cecum shows puckering and covered with ngo, purulent exudate. This area is inked black. Both resection margins are stapled. The specimen is previously partially opened. The lumen contains fecal material. 10.5 cm away from the distal resection margin, there is an ulcerated flat tumor mass involving cecum, adjacent ascending colon and ileocecal valve measuring 6 x 5 x 0.5 cm. Also present in the container is a donut-shaped piece of tissue measuring 2.5 x 1.5 x 0.5 cm. The pericolonic adipose tissue is fixed in lymph node-revealing solution. Sections of pericolonic adipose tissue reveal multiple lymph nodes. The largest lymph node measures 1.5 cm in greatest dimension. [place] Twirler sections are submitted as follows: 1-3 ? each cassette containing one bisected lymph node, 4 & 5 ? multiple lymph nodes. More dictation will follow after overnight fixation. / SJ:rg 05/02/17 Sections of the appendix reveal completely obliterated lumen. Sections of the tumor mass reveal full thickness involvement of the bowel wall and very close to the serosal surface. Additional sections are submitted as follows: 6-8 ? each cassette containing one bisected lymph node, 9 ? donut, 10 ? appendix, 11-16 ? colon (11 ? proximal and distal resection margin, 12-15 ? tumor, 16 ? unremarkable small and large intestine including ileocecal valve). / CATHY:steven 05/03/17 TC:0 CPT: 62668
--- NOTE | 2017-05-02 10:34 | PCM.IMDPSTOP ---
Immediate Post-Op Note Date of Procedure: 04/28/17 Primary Surgeon/Physician: Vesta Quintero software engineer: Ankit Antonio Pre-Operative Diagnosis: right colon cancer Post-Operative Diagnosis: same Surgery/Procedure Performed:: laparoscopic right hemicolectomy Description of Surgical Findings:: right colon mass - circumferential, 5-6 cm in length with central ulcer, non obstructing, friable Estimated Blood Loss: 30 ml Specimen's removed: right colon mass biopsies Drains: none Type of Anesthesia:: General ASA Class: ASA3 Severe Disease - Admit VTE Documentation VTE Present on Admission: Yes VTE Mechan Device Prophylaxis: SCD's
[2017-05-02 10:47] LABS: Pathologist Comment/Body Fluid Reviewed
--- NOTE | 2017-05-02 13:32 | OP.PCM_ITS ---
Report of Operation Date of Procedure: 04/28/17 Pre-Operative Diagnosis: right colon cancer Post-Operative Diagnosis: same Surgery/Procedure Performed:: laparoscopic right hemicolectomy Description of Surgical Findings:: right colon mass - circumferential, 5-6 cm in length with central ulcer, non obstructing, friable dye house hand: Ankit Antonio Type of Anesthesia:: General Anesthesiologist: Yaritza Hunter Specimen's removed: right colon and mesentery Drains: none Estimated Blood Loss (mL): 75 ml Fluids Replaced: 1700 ml RL Description of Procedure: After informed consent was obtained, the patient was brought into the operating room and placed in the supine position on the operating table. Appropriate time out protocol was followed. The patient was then placed under general anesthesia. The patient?s abdomen was then prepped with a sterile surgical skin preparation and sterile surgical drapes were placed. An area around the umbilicus was grasped with penetrating clamps and the skin and subcutaneous tissues were infiltrated with local anesthetic. A skin incision was then made. A Veress needle was then inserted into the intraabdominal cavity and checked to be in the proper position with a normal saline drop test. A CO2 pneumoperitoneum was then created. Once this was achieved, the Veress needle was removed and a 12 mm trocar was placed in its stead. A 10 mm laparoscope was then inserted into the trocar. Careful examination of the intraabdominal contents was then done. There was no evidence of injury to any internal organs from placement of the Veress needle or the trocar. Under direct visualization, two lower midline 5 mm suprapubic trocars and a 5mm hypogastric midline trocar were then placed into the intraabdominal cavity. The skin and subcutaneous tissues at these sites were first infiltrated with local anesthetic. Attention was then directed to the right lower quadrant. The right colon was examined. The right colon mass was noted to be in the cecum by probing. There were adhesions of the colon to the abdominal wall in the distal right colon. These adhesions were taken down using the Harmonic scalpel. Dissection was then continued lateral to medial. Dissection using the Harmonic scalpel continued from the line of Toldt at the cecum along the right colic gutter to the hepatic flexure. Blunt dissection was then done to the colon and its mesentery from the retroperitoneum. This was continued until the duodenal sweep was noted. The colon and mesentwry was then bluntly from the duodenum. Dissection then returned to the colon mesentwry. .The hepatic flexure ligaments were then taken down using the Harmonic scalpel. Dissection then continued to the gastrocolic ligament and the omentum and these structures were from the colon. Dissection then began medial to the right colon. A grasper was placed on the mesentery near the ileocecal area. The mesentery was thus tented up and dissection began to incise into the mesentery to identify the ileocolic vessels. The mesentery was incised from near the bowel wall of the terminal ileum and continued centrally to a longitudinal line from the duodenum at the root of the ileocecal vessel that were tented up. Dissection then began around the ileocecal vessels. It was then easier to discern a point at which to make a window thru the mesentary. A window in the mesentery was created on either side of the vessels near their root. The vessels were then from the surrounding tissues using sharp and blunt dissection. Once the ileocolic vessels were identified, then the vein and artery were ligated with ligaclips and then transected. The mesentery was then incised from this location toward the proximal transverse colon. There was a vessel noted to be transversing the mesentery along this dissection pathway, this may be a right colic branch from the middle colic artery. It was ligated and transected. Thus the mesentery and right colon were freed of its attachments except at the terminal ileum and proximal transverse colon. The procedure then continued in the mode. A midline skin incision was made with a 15 blade scalpel. It was carried down to the fascia using sharp dissection, any hemorrhage was adequately controlled with electrocautery. A wound protector was the inserted and positioned in the incision. The right colon was then palpated out and brought out via this incision. A point on the terminal ileum was then chosen for the proximal transection and a point on the proximal transverse colon was chosen for the distal transection point. A linear gastrointestinal stapling device was then fired across both these selected sites. Thus the right colon and mesentery were completely freed and forwarded to pathology for analysis. The end of the distal small bowel was then brought up against the transected end of the transverse colon. The antimesenteric corners were transected and each limb of the gastrointestinal stapling device was placed into the opening and the stapler was then fired creating a side to side anastomosis. The resulting opening was then stapled closed with a TA 60 stapling device. The suture line was carefully examined. Several bleeding sites were contained using figure of 8 vicryl sutures placed. A crotch stitch was then placed using 3-0 vicryl. The anastomosis was carefully examined. It was palpated and of adequate lumen. No active bleeding or fecal leakage or bile leakage was noted. The bowel was then replaced back into the intraabdominal cavity. The pneumoperitoneum was re-established after tightening the wound protector around the 12 mm trocar. Careful attention was paid to the intraabdominal contents. There was no evidence of bile leak or bleeding or fecal leakage noted. The anastomosis was examined and was patent and viable appearing. The intraabdominal cavity was examined and there was no evidence of further inflammation or tissue abnormality. The CO2 pneumoperitoneum was released and all trocars were removed intact. The fascia and peritoneum were than reapproximated with #1 PDS suture. Cavilon and steristrips were applied to reinforce skin closure and proper sterile dressings were placed. The patient was then extubated and brought to the Recovery Room in stable condition. - Complications none noted - Admit VTE Documentation VTE Present on Admission: Yes VTE Mechan Device Prophylaxis: SCD's
[2017-05-02 14:38] LABS: pH, Body Fluid 11254 7.7 (Not Estab.)
--- NOTE | 2017-05-02 15:19 | CASEMGMT ---
Patient has been gone all day due to her surgery. SW stopped by the room and patient's sister, Maribell was in the room. SW asked her if she and patient discussed which SNF and she said they did. She said she went to [facility] over the weekend and felt it was very clean and friendly. This is where they decided to go. JOAO called Luzma at [facility] and made a referral as well as faxed information. Await response from [facility]. Rosi CASILLAS MSW
--- NOTE | 2017-05-02 16:40 | NURSING ---
Dr. Dowling at bedside to assess patient. Patient remains drowsy. Sister at bedside. This nurse placed sheet over patient private areas and fixed patient gown to allow Dr. Dowling to assess abdominal dressing without compromising patient privacy and wishes. Will continue to monitor and assess patient.
--- NOTE | 2017-05-02 16:40 | PCM.PN.HOSP ---
Patient Problems: Active and Suspected Problems CHF (congestive heart failure) (Acute) Coagulopathy (Acute) Elevated TSH (Acute) With a normal T4 Cardiomyopathy (Acute) Pulmonary hypertension (Acute) Pulmonary artery systolic pressure estimated at 56.... Tricuspid regurgitation (Acute) Mitral regurgitation (Acute) Colonic mass (Acute) Preop cardiovascular exam (Acute) Subjective: Groggy post operative. Vitals/I&O's: Vital Signs Temp Pulse Resp BP Pulse Ox 36.9 C 52 L 16 94/47 L 96 05/02/17 16:24 05/02/17 16:24 05/02/17 16:24 05/02/17 16:24 05/02/17 16:24 Oxygen Flow Rate 2 Oxygen Delivery Method Nasal Cannula Weight: 61.3 kg Body Mass Index (BMI) 22.5 Intake and Output for Last 24 Hours 04/30/17 05/01/17 05/02/17 23:59 23:59 23:59 Intake Total 720 / 720 3040 / 3040 3525 / 3525 Output Total 1600 / 1600 300 / 300 365 / 365 Balance -880 / -880 2740 / 2740 3160 / 3160 General: No apparent distress, - - groggy. afebrile HEENT: Atraumatic, Normocephalic Neck: No Nodes, Thyroid Normal Size and Texture Lungs: Clear to auscultation, Normal air movement Cardiovascular: Regular rate, No murmurs Abdomen: Hypoactive Bowel Sounds, - - midline incision intact. Extremities: No edema, No Calf Tenderness Psych/Mental Status: Normal Affect, Appropriate Microbiology Past 72 Hours 04/29/17 09:45 Fluid - Thoracentesis Fluid Gram Stain - Final 04/29/17 09:45 Fluid - Thoracentesis Fluid Body Fluid Culture - Final No growth aerobically. 04/29/17 09:45 Fluid - Thoracentesis Fluid Anaerobic Culture - Preliminary No growth in 48 hours. Laboratory Results 04/29/17 09:45: Fluid pH 7.7 04/29/17 09:45: Fl Pathologist Comment Reviewed 05/02/17 05:35: WBC 5.1, RBC 3.60 L, Hgb 9.4 L, Hct 32.2 L, MCV 89.4, MCH 26.1 L, MCHC 29.2 L, RDW 22.6 H, RDW Differential 69.1 H, Plt Count 286, MPV 9.8, Immature Gran % (Auto) 0.200, Neut % (Auto) 78.7 H, Lymph % (Auto) 9.6 L, [place] % (Auto) 8.7, Eos % (Auto) 2.4, Baso % (Auto) 0.4, Absolute Neuts (auto) 4.0, Absolute Lymphs (auto) 0.49 L, Total Counted Not Reportable, Differential Comment SCANNED, Hypochromasia 3+, Macrocytosis 2+ 05/02/17 05:35: PT 14.9, INR 1.2, APTT 28.4 05/02/17 05:35: Sodium 140, Potassium 4.2, Chloride 106, Carbon Dioxide 27.0, Anion Gap 7, BUN 20 H, Creatinine 0.70, Estim Creat Clear Calc 47.79, Est GFR (MDRD) Af Amer 107, Est GFR (MDRD) Non-Af 89, BUN/Creatinine Ratio 28.5 H, Glucose 91, Calcium 7.8 L, Albumin 2.3 L Current Medications Acetaminophen (Tylenol) 650 mg PO Q6H PRN PRN PRN Reason: Mild Pain (scale 0-3)/T>100.7 Last Admin: 04/25/17 21:11 Dose: 650 mg Bisacodyl (Dulcolax) 10 mg PO DAILY PRN PRN PRN Reason: Constipation Carvedilol (Coreg) 3.125 mg PO BID [facility] Last Admin: 05/02/17 08:14 Dose: 3.125 mg Enoxaparin Sodium (Lovenox) 30 mg SC DAILY@0600 [facility] Last Admin: 05/01/17 05:46 Dose: 30 mg Famotidine (Pepcid) 40 mg PO DAILY [facility] Last Admin: 05/02/17 08:14 Dose: 40 mg [facility] Last Admin: 05/01/17 16:34 Dose: 325 mg Furosemide (Lasix) 40 mg PO DAILY [facility] Last Admin: 05/01/17 10:17 Dose: 40 mg Lisinopril (Zestril) 5 mg PO BID [facility] Last Admin: 05/02/17 08:15 Dose: 5 mg Magnesium Hydroxide (Milk Of Magnesia) 30 ml PO DAILY PRN PRN PRN Reason: Constipation Ondansetron HCl (Zofran) 4 mg IV Q8H PRN PRN PRN Reason: Nausea Oxycodone HCl (Oxyir) 5 mg PO Q4H PRN PRN PRN Reason: Moderate Pain (pain scale 4-5) Polyethylene Glycol (Miralax) 17 gm PO DAILY [facility] Last Admin: 05/01/17 10:17 Dose: Not Given Potassium Chloride (K-Dur) 40 meq PO BIDCM [facility] Last Admin: 05/01/17 16:34 Dose: 40 meq Sertraline HCl (Zoloft) 50 mg PO DAILY [facility] Last Admin: 05/01/17 10:17 Dose: 50 mg Sodium Chloride () 5 - 30 ml IV UD PRN PRN Reason: SALINE FLUSH Last Admin: 04/29/17 17:08 Dose: 10 ml Assessment/Plan Active and Suspected Problems CHF (congestive heart failure) (Acute) Coagulopathy (Acute) Elevated TSH (Acute) With a normal T4 Cardiomyopathy (Acute) Pulmonary hypertension (Acute) Pulmonary artery systolic pressure estimated at 56.... Tricuspid regurgitation (Acute) Mitral regurgitation (Acute) Colonic mass (Acute) Preop cardiovascular exam (Acute) 1. acute blood loss anemia: Stable after transfusion of 5 units packed red blood cells. 2. Colon mass Status post a right hemicolectomy postop day #0 Follow-up biopsy results. Clear liquid diet for now. Advance diet per general surgery's recommendations. 3. Acute heart failure with reduced ejection fraction EF of 47% from echocardiogram from 04/25/2017 Continue with Lasix, lisinopril, carvedilol. 4. DVT proph: SCDs. DW patient's sister. Code Visit Inpatient E&M: 40749 Subs Hosp L2
--- NOTE | 2017-05-02 16:54 | PN_ITS ---
Patient Problems: Active and Suspected Problems CHF (congestive heart failure) (Acute) Coagulopathy (Acute) Elevated TSH (Acute) With a normal T4 Cardiomyopathy (Acute) Pulmonary hypertension (Acute) Pulmonary artery systolic pressure estimated at 56.... Tricuspid regurgitation (Acute) Mitral regurgitation (Acute) Colonic mass (Acute) Preop cardiovascular exam (Acute) Subjective: Groggy post operative. Vitals/I&O's: Vital Signs Temp Pulse Resp BP Pulse Ox 36.9 C 52 L 16 94/47 L 96 05/02/17 16:24 05/02/17 16:24 05/02/17 16:24 05/02/17 16:24 05/02/17 16:24 Oxygen Flow Rate 2 Oxygen Delivery Method Nasal Cannula Weight: 61.3 kg Body Mass Index (BMI) 22.5 Intake and Output for Last 24 Hours 04/30/17 05/01/17 05/02/17 23:59 23:59 23:59 Intake Total 720 / 720 3040 / 3040 3525 / 3525 Output Total 1600 / 1600 300 / 300 365 / 365 Balance -880 / -880 2740 / 2740 3160 / 3160 General: No apparent distress, - - groggy. afebrile HEENT: Atraumatic, Normocephalic Neck: No Nodes, Thyroid Normal Size and Texture Lungs: Clear to auscultation, Normal air movement Cardiovascular: Regular rate, No murmurs Abdomen: Hypoactive Bowel Sounds, - - midline incision intact. Extremities: No edema, No Calf Tenderness Psych/Mental Status: Normal Affect, Appropriate Microbiology Past 72 Hours 04/29/17 09:45 Fluid - Thoracentesis Fluid Gram Stain - Final 04/29/17 09:45 Fluid - Thoracentesis Fluid Body Fluid Culture - Final No growth aerobically. 04/29/17 09:45 Fluid - Thoracentesis Fluid Anaerobic Culture - Preliminary No growth in 48 hours. Laboratory Results 04/29/17 09:45: Fluid pH 7.7 04/29/17 09:45: Fl Pathologist Comment Reviewed 05/02/17 05:35: WBC 5.1, RBC 3.60 L, Hgb 9.4 L, Hct 32.2 L, MCV 89.4, MCH 26.1 L , MCHC 29.2 L, RDW 22.6 H, RDW Differential 69.1 H, Plt Count 286, MPV 9.8, Immature Gran % (Auto) 0.200, Neut % (Auto) 78.7 H, Lymph % (Auto) 9.6 L, [place] % (Auto) 8.7, Eos % (Auto) 2.4, Baso % (Auto) 0.4, Absolute Neuts (auto) 4.0, Absolute Lymphs (auto) 0.49 L, Total Counted Not Reportable, Differential Comment SCANNED, Hypochromasia 3+, Macrocytosis 2+ 05/02/17 05:35: PT 14.9, INR 1.2, APTT 28.4 05/02/17 05:35: Sodium 140, Potassium 4.2, Chloride 106, Carbon Dioxide 27.0, Anion Gap 7, BUN 20 H, Creatinine 0.70, Estim Creat Clear Calc 47.79, Est GFR ( MDRD) Af Amer 107, Est GFR (MDRD) Non-Af 89, BUN/Creatinine Ratio 28.5 H, Glucose 91, Calcium 7.8 L, Albumin 2.3 L Current Medications Acetaminophen (Tylenol) 650 mg PO Q6H PRN PRN PRN Reason: Mild Pain (scale 0-3)/T>100.7 Last Admin: 04/25/17 21:11 Dose: 650 mg Bisacodyl (Dulcolax) 10 mg PO DAILY PRN PRN PRN Reason: Constipation Carvedilol (Coreg) 3.125 mg PO BID [facility] Last Admin: 05/02/17 08:14 Dose: 3.125 mg Enoxaparin Sodium (Lovenox) 30 mg SC DAILY@0600 [facility] Last Admin: 05/01/17 05:46 Dose: 30 mg Famotidine (Pepcid) 40 mg PO DAILY [facility] Last Admin: 05/02/17 08:14 Dose: 40 mg [facility]ous S[facility] Last Admin: 05/01/17 16:34 Dose: 325 mg Furosemide (Lasix) 40 mg PO DAILY [facility] Last Admin: 05/01/17 10:17 Dose: 40 mg Lisinopril (Zestril) 5 mg PO BID [facility] Last Admin: 05/02/17 08:15 Dose: 5 mg Magnesium Hydroxide (Milk Of Magnesia) 30 ml PO DAILY PRN PRN PRN Reason: Constipation Ondansetron HCl (Zofran) 4 mg IV Q8H PRN PRN PRN Reason: Nausea Oxycodone HCl (Oxyir) 5 mg PO Q4H PRN PRN PRN Reason: Moderate Pain (pain scale 4-5) Polyethylene Glycol (Miralax) 17 gm PO DAILY [facility] Last Admin: 05/01/17 10:17 Dose: Not Given Potassium Chloride (K-Dur) 40 meq PO BIDCM [facility] Last Admin: 05/01/17 16:34 Dose: 40 meq Sertraline HCl (Zoloft) 50 mg PO DAILY [facility] Last Admin: 05/01/17 10:17 Dose: 50 mg Sodium Chloride () 5 - 30 ml IV UD PRN PRN Reason: SALINE FLUSH Last Admin: 04/29/17 17:08 Dose: 10 ml Assessment/Plan Active and Suspected Problems CHF (congestive heart failure) (Acute) Coagulopathy (Acute) Elevated TSH (Acute) With a normal T4 Cardiomyopathy (Acute) Pulmonary hypertension (Acute) Pulmonary artery systolic pressure estimated at 56.... Tricuspid regurgitation (Acute) Mitral regurgitation (Acute) Colonic mass (Acute) Preop cardiovascular exam (Acute) 1. acute blood loss anemia: Stable after transfusion of 5 units packed red blood cells. 2. Colon mass Status post a right hemicolectomy postop day #0 Follow-up biopsy results. Clear liquid diet for now. Advance diet per general surgery's recommendations. 3. Acute heart failure with reduced ejection fraction EF of 47% from echocardiogram from 04/25/2017 Continue with Lasix, lisinopril, carvedilol. 4. DVT proph: SCDs. DW patient's sister. Code Visit Inpatient E&M: 21685 Subs Hosp L2
--- NOTE | 2017-05-02 21:42 | NURSING ---
Pt had RN speak with POJunie on phone. POJunie concerned that pt has had a heart attack. POA concerned that no ECHO has been done. POA stated she doesn't want pt to go home and . RN told ESTHER that RN would read through reports this shift and if POJunie can call back in the AM, RN will discuss with her what RN has found out.
[2017-05-03] VITALS (14 sets, daily range): BP systolic 91–136; BP diastolic 54–72; PULSE 46–102; RESP 14–20; TEMP 36.3–37.6; O2SAT 94–100; BMI 27.9
[2017-05-03] MEDS: oxyCODONE 5 MG Tablet PO ×3 (01:16→21:56)
--- NOTE | 2017-05-03 06:09 | EKG12_ITS ---
Test Reason : CP Blood Pressure : / mmHG Vent. Rate : 072 BPM Atrial Rate : 072 BPM P-R Int : 168 ms QRS Dur : 102 ms QT Int : 398 ms P-R-T Axes : 050 -12 065 degrees QTc Int : 435 ms Normal sinus rhythm Normal ECG When compared with ECG of 02-MAY-2017 05:31, MANUAL COMPARISON REQUIRED, DATA IS UNCONFIRMED Confirmed by EVA ANDRES ([id number]), video effects editor CINDY KNUTSON ([id number]) on 05/05/2017 2:04:52 PM Referred By: HOSP Confirmed By:EVA ANDRES
--- NOTE | 2017-05-03 06:59 | PCM.PN.SRG ---
Patient Problems: Active and Suspected Problems CHF (congestive heart failure) (Acute) Coagulopathy (Acute) Elevated TSH (Acute) With a normal T4 Cardiomyopathy (Acute) Pulmonary hypertension (Acute) Pulmonary artery systolic pressure estimated at 56.... Tricuspid regurgitation (Acute) Mitral regurgitation (Acute) Colonic mass (Acute) Preop cardiovascular exam (Acute) Subjective: patient states that she is in too much pain to move around, however, she is lying in bed appearing comfortable and able to do incentive spirometry without difficulty, states that she has right shoulder pain 7 out of 10 does not feel hungry no flatus requires adjustment of pillows - I helped her with this and this required 15 minutes as the patient wanted to have the pillow in a very exact position under her bottom wanted television adjusted educated patient on incentive spirometry and patient states that she was too tired to do this encouraged ambulation, but patient states that she doesn't want to move out of bed - Physical Exam General: Alert Oral: Moist Mucosa Neck: Supple Lungs: Normal air movement, - - 98% oxygen sat Cardiovascular: Regular rate Abdomen: Soft, Non-Distended Vital Signs Temp Pulse Resp BP Pulse Ox 98.5 F 73 20 H 136/72 H 98 05/03/17 06:52 05/03/17 06:52 05/03/17 06:52 05/03/17 06:52 05/03/17 06:52 Oxygen Flow Rate 2 Oxygen Delivery Method Nasal Cannula Weight: 64.8 kg Body Mass Index (BMI) 22.5 Intake and Output for Last 24 Hours 05/01/17 05/02/17 05/03/17 23:59 23:59 23:59 Intake Total 3040 / 3040 3605 / 3605 270 / 270 Output Total 300 / 300 650 / 650 190 / 190 Balance 2740 / 2740 2955 / 2955 80 / 80 Microbiology Past 72 Hours 04/29/17 09:45 Gram Stain - Final Fluid - Thoracentesis Fluid Body Fluid Culture - Final No growth aerobically. Anaerobic Culture - Preliminary No growth in 48 hours. Laboratory Tests Past 24 Hrs 04/29/17 04/29/17 09:45 09:45 Fluid pH 7.7 Fl Pathologist Comment Reviewed Assessment/Plan Active and Suspected Problems CHF (congestive heart failure) (Acute) Coagulopathy (Acute) Elevated TSH (Acute) With a normal T4 Cardiomyopathy (Acute) Pulmonary hypertension (Acute) Pulmonary artery systolic pressure estimated at 56.... Tricuspid regurgitation (Acute) Mitral regurgitation (Acute) Colonic mass (Acute) Preop cardiovascular exam (Acute) Impression: severe anemia - presented to the hospital with this right colon cancer - as found by colonoscopy yesterday - pathology reveals invasive adenocarcinoma - no evidence of metastatic disease by chest/abd/pelv CT, CEA is WNL POD#1 s/p laparoscopic right hemicolectomy Plan: Encourage ambulation sips of clear liquids encourage incentive spirometry Patient appears reluctant to move, I have counseled her that she would be at increased risk for pneumonia and blood clots - patient appears not to be motivated, but does not show a depressed mood
[2017-05-03] MEDS: Ferrous Sulfate 325 MG Tablet PO ×2 (08:35→15:49)
[2017-05-03] MEDS: Lisinopril 5 MG Tablet PO ×2 (09:27→21:57)
[2017-05-03] MEDS: Sertraline 50 MG Tablet PO (09:27)
[2017-05-03] MEDS: Famotidine 20 MG Tablet 40 MG PO (09:27)
[2017-05-03] MEDS: Furosemide 40 MG Tablet PO (09:28)
[2017-05-03] MEDS: Carvedilol 3.125 MG TABLET PO ×2 (09:29→21:57)
[2017-05-03] MEDS: Polyethylene Glycol 3350 17 GM PACKET PO (09:31)
--- NOTE | 2017-05-03 10:48 | CASEMGMT ---
JOAO spoke with Luzma at [facility] and they can accept patient. JOAO spoke with patient and let her know SW spoke with her sister yesterday and she said they decided on [facility]. JOAO told her [facility] her when she is ready. JOAO then called patient's sister, Maribell and let her know [facility] can take patient. JOAO also called Lupe at [facility] and let her know patient will be going to [facility] at d/c. JOAO to obtain level of care for patient. Plan: [facility] pending receipt of level of care and when patient is medically ready. Rosi CASILLAS COMPENSATION ADVISOR
--- NOTE | 2017-05-03 13:19 | PCM.PN.HOSP ---
Patient Problems: Active and Suspected Problems CHF (congestive heart failure) (Acute) Coagulopathy (Acute) Elevated TSH (Acute) With a normal T4 Cardiomyopathy (Acute) Pulmonary hypertension (Acute) Pulmonary artery systolic pressure estimated at 56.... Tricuspid regurgitation (Acute) Mitral regurgitation (Acute) Colonic mass (Acute) Preop cardiovascular exam (Acute) Subjective: Still some abdominal discomfort. Pain in her back from his being in bed but has had some Jell-O but patient would really like to have something other than Jell-O. Vitals/I&O's: Vital Signs Temp Pulse Resp BP Pulse Ox 37.6 C H 75 18 116/63 98 05/03/17 09:22 05/03/17 12:01 05/03/17 09:22 05/03/17 09:22 05/03/17 09:22 Oxygen Flow Rate 2 Oxygen Delivery Method Nasal Cannula Weight: 64.8 kg Body Mass Index (BMI) 22.5 Intake and Output for Last 24 Hours 05/01/17 05/02/17 05/03/17 23:59 23:59 23:59 Intake Total 3040 / 3040 3605 / 3605 270 / 270 Output Total 300 / 300 650 / 650 315 / 315 Balance 2740 / 2740 2955 / 2955 -45 / -45 General: Alert, Cooperative, No apparent distress HEENT: Atraumatic, Normocephalic Neck: No Nodes, Thyroid Normal Size and Texture Lungs: Clear to auscultation, Normal air movement, No rhonchi, No wheeze Cardiovascular: Regular rate, Regular Rhythm, Normal S1, Normal S2, No murmurs Abdomen: Distended, Tender Extremities: No edema, No Calf Tenderness Skin: No rashes, No breakdown Psych/Mental Status: Normal Affect, Appropriate Microbiology Past 72 Hours 04/29/17 09:45 Fluid - Thoracentesis Fluid Gram Stain - Final 04/29/17 09:45 Fluid - Thoracentesis Fluid Body Fluid Culture - Final No growth aerobically. 04/29/17 09:45 Fluid - Thoracentesis Fluid Anaerobic Culture - Preliminary No growth in 48 hours. Laboratory Results 04/29/17 09:45: Fluid pH 7.7 Current Medications Acetaminophen (Tylenol) 650 mg PO Q6H PRN PRN PRN Reason: Mild Pain (scale 0-3)/T>100.7 Last Admin: 04/25/17 21:11 Dose: 650 mg Bisacodyl (Dulcolax) 10 mg PO DAILY PRN PRN PRN Reason: Constipation Carvedilol (Coreg) 3.125 mg PO BID [facility] Last Admin: 05/03/17 09:29 Dose: 3.125 mg Enoxaparin Sodium (Lovenox) 30 mg SC DAILY@0600 [facility] Last Admin: 05/01/17 05:46 Dose: 30 mg Famotidine (Pepcid) 40 mg PO DAILY [facility] Last Admin: 05/03/17 09:27 Dose: 40 mg [facility] Last Admin: 05/03/17 08:35 Dose: 325 mg Furosemide (Lasix) 40 mg PO DAILY [facility] Last Admin: 05/03/17 09:28 Dose: 40 mg Lisinopril (Zestril) 5 mg PO BID [facility] Last Admin: 05/03/17 09:27 Dose: 5 mg Magnesium Hydroxide (Milk Of Magnesia) 30 ml PO DAILY PRN PRN PRN Reason: Constipation Ondansetron HCl (Zofran) 4 mg IV Q8H PRN PRN PRN Reason: Nausea Oxycodone HCl (Oxyir) 5 mg PO Q4H PRN PRN PRN Reason: Moderate Pain (pain scale 4-5) Last Admin: 05/03/17 05:53 Dose: 5 mg Polyethylene Glycol (Miralax) 17 gm PO DAILY [facility] Last Admin: 05/03/17 09:31 Dose: 17 gm Potassium Chlor[facility] (K-Dur) [facility] Last Admin: 05/03/17 08:34 Dose: 40 meq Sertraline HCl (Zoloft) 50 mg PO DAILY [facility] Last Admin: 05/03/17 09:27 Dose: 50 mg Sodium Chloride () 5 - 30 ml IV UD PRN PRN Reason: SALINE FLUSH Last Admin: 04/29/17 17:08 Dose: 10 ml Assessment/Plan Active and Suspected Problems CHF (congestive heart failure) (Acute) Coagulopathy (Acute) Elevated TSH (Acute) With a normal T4 Cardiomyopathy (Acute) Pulmonary hypertension (Acute) Pulmonary artery systolic pressure estimated at 56.... Tricuspid regurgitation (Acute) Mitral regurgitation (Acute) Colonic mass (Acute) Preop cardiovascular exam (Acute) 1. acute blood loss anemia: Stable after transfusion of 5 units packed red blood cells. 2. Colon mass Status post a right hemicolectomy postop day #1 Follow-up biopsy results. Clear liquid diet for now. Advance diet per general surgery's recommendations. 3. Acute heart failure with reduced ejection fraction EF of 47% from echocardiogram from 04/25/2017 Continue with Lasix, lisinopril, carvedilol. 4. DVT proph: SCDs. DW patient's sister. Code Visit Inpatient E&M: 12742 Subs Hosp L2
--- NOTE | 2017-05-03 13:23 | PN_ITS ---
Patient Problems: Active and Suspected Problems CHF (congestive heart failure) (Acute) Coagulopathy (Acute) Elevated TSH (Acute) With a normal T4 Cardiomyopathy (Acute) Pulmonary hypertension (Acute) Pulmonary artery systolic pressure estimated at 56.... Tricuspid regurgitation (Acute) Mitral regurgitation (Acute) Colonic mass (Acute) Preop cardiovascular exam (Acute) Subjective: Still some abdominal discomfort. Pain in her back from his being in bed but has had some Jell-O but patient would really like to have something other than Jell-O. Vitals/I&O's: Vital Signs Temp Pulse Resp BP Pulse Ox 37.6 C H 75 18 116/63 98 05/03/17 09:22 05/03/17 12:01 05/03/17 09:22 05/03/17 09:22 05/03/17 09:22 Oxygen Flow Rate 2 Oxygen Delivery Method Nasal Cannula Weight: 64.8 kg Body Mass Index (BMI) 22.5 Intake and Output for Last 24 Hours 05/01/17 05/02/17 05/03/17 23:59 23:59 23:59 Intake Total 3040 / 3040 3605 / 3605 270 / 270 Output Total 300 / 300 650 / 650 315 / 315 Balance 2740 / 2740 2955 / 2955 -45 / -45 General: Alert, Cooperative, No apparent distress HEENT: Atraumatic, Normocephalic Neck: No Nodes, Thyroid Normal Size and Texture Lungs: Clear to auscultation, Normal air movement, No rhonchi, No wheeze Cardiovascular: Regular rate, Regular Rhythm, Normal S1, Normal S2, No murmurs Abdomen: Distended, Tender Extremities: No edema, No Calf Tenderness Skin: No rashes, No breakdown Psych/Mental Status: Normal Affect, Appropriate Microbiology Past 72 Hours 04/29/17 09:45 Fluid - Thoracentesis Fluid Gram Stain - Final 04/29/17 09:45 Fluid - Thoracentesis Fluid Body Fluid Culture - Final No growth aerobically. 04/29/17 09:45 Fluid - Thoracentesis Fluid Anaerobic Culture - Preliminary No growth in 48 hours. Laboratory Results 04/29/17 09:45: Fluid pH 7.7 Current Medications Acetaminophen (Tylenol) 650 mg PO Q6H PRN PRN PRN Reason: Mild Pain (scale 0-3)/T>100.7 Last Admin: 04/25/17 21:11 Dose: 650 mg Bisacodyl (Dulcolax) 10 mg PO DAILY PRN PRN PRN Reason: Constipation Carvedilol (Coreg) 3.125 mg PO BID [facility] Last Admin: 05/03/17 09:29 Dose: 3.125 mg Enoxaparin Sodium (Lovenox) 30 mg SC DAILY@0600 [facility] Last Admin: 05/01/17 05:46 Dose: 30 mg Famotidine (Pepcid) 40 mg PO DAILY [facility] Last Admin: 05/03/17 09:27 Dose: 40 mg [facility] Last Admin: 05/03/17 08:35 Dose: 325 mg Furosemide (Lasix) 40 mg PO DAILY [facility] Last Admin: 05/03/17 09:28 Dose: 40 mg Lisinopril (Zestril) 5 mg PO BID [facility] Last Admin: 05/03/17 09:27 Dose: 5 mg Magnesium Hydroxide (Milk Of Magnesia) 30 ml PO DAILY PRN PRN PRN Reason: Constipation Ondansetron HCl (Zofran) 4 mg IV Q8H PRN PRN PRN Reason: Nausea Oxycodone HCl (Oxyir) 5 mg PO Q4H PRN PRN PRN Reason: Moderate Pain (pain scale 4-5) Last Admin: 05/03/17 05:53 Dose: 5 mg Polyethylene Glycol (Miralax) 17 gm PO DAILY [facility] Last Admin: 05/03/17 09:31 Dose: 17 gm Potassium [facility] ([facility]Dur) [facility] Last Admin: 05/03/17 08:34 Dose: 40 meq Sertraline HCl (Zoloft) 50 mg PO DAILY [facility] Last Admin: 05/03/17 09:27 Dose: 50 mg Sodium Chloride () 5 - 30 ml IV UD PRN PRN Reason: SALINE FLUSH Last Admin: 04/29/17 17:08 Dose: 10 ml Assessment/Plan Active and Suspected Problems CHF (congestive heart failure) (Acute) Coagulopathy (Acute) Elevated TSH (Acute) With a normal T4 Cardiomyopathy (Acute) Pulmonary hypertension (Acute) Pulmonary artery systolic pressure estimated at 56.... Tricuspid regurgitation (Acute) Mitral regurgitation (Acute) Colonic mass (Acute) Preop cardiovascular exam (Acute) 1. acute blood loss anemia: Stable after transfusion of 5 units packed red blood cells. 2. Colon mass Status post a right hemicolectomy postop day #1 Follow-up biopsy results. Clear liquid diet for now. Advance diet per general surgery's recommendations. 3. Acute heart failure with reduced ejection fraction EF of 47% from echocardiogram from 04/25/2017 Continue with Lasix, lisinopril, carvedilol. 4. DVT proph: SCDs. DW patient's sister. Code Visit Inpatient E&M: 91014 Subs Hosp L2
--- NOTE | 2017-05-03 19:08 | PN.CARD_ITS ---
Subjectve: Patient is status post general surgery. Based upon a conversation with Dr. Quintero yesterday evening, while the patient was still in the recovery room, the patient appeared to have no adverse cardiovascular events during or following her surgical procedure. Today the patient is awake and alert. She denies any chest discomfort or difficulty breathing. She states her main concern is her back being sore from lying in bed. Objective: Vital Signs Temp Pulse Resp BP Pulse Ox 99.5 F H 102 H 18 113/66 94 05/03/17 13:45 05/03/17 15:41 05/03/17 13:45 05/03/17 13:45 05/03/17 13:45 Oxygen Flow Rate 2 Oxygen Delivery Method Room Air Weight: 142 lb 13.753 oz Body Mass Index (BMI) 22.5 Intake and Output for Last 24 Hours 05/01/17 05/02/17 05/03/17 23:59 23:59 23:59 Intake Total 3040 / 3040 3605 / 3605 270 / 270 Output Total 300 / 300 650 / 650 615 / 615 Balance 2740 / 2740 2955 / 2955 -345 / -345 General: Awake, Alert, Oriented x 3, Cooperative, No Acute Distress Lungs: Clear to auscultation Cardiovascular: Regular Rhythm, Premature Ectopic Beats, Normal S1, Normal S2 Murmur Murmur: Grade 2/6, Harsh, Mid Systolic, LLSB, LVOT Abdomen: Hypoactive Bowel Sounds Extremities: Mild RLE Edema, Mild LLE Edema Rhythm: Sinus rhythm; PVCs Assessment/Plan 1. Cardiomyopathy The patient has been found by noninvasive studies to have concerns of an underlying cardiomyopathy based upon the parents of her ventricle being mildly globally impaired. It is unclear as to how long this has been present in the patient. She has started medical management. This is included low-dose beta-issa therapy and low-dose JEEVAN inhibitor therapy. She appears to be tolerating this well thus far. She may eventually need further evaluation of this cardiomyopathy with respect to any evidence of contribution from coronary artery disease. This may come noninvasively or invasively. However at the moment, based upon her ongoing clinical course with respect to her concerns of her anemia, colonic mass lesion concerning for carcinoma, it appears that she will continue conservative medical management and be considered for further evaluation in the future. 2. Congestive heart failure It is unclear as to whether her signs and symptoms compatible with CHF are all related to her underlying finding of a cardiomyopathy (mild) versus being related to concerns of her low protein and low albumin levels and third setting versus being related to a potential high output failure secondary to her underlying anemia. There may be a combination of factors contributing to this. The moment she does appear to be clinically improved status post receiving PRBCs and diuretic therapy. She will need to continue medical management. Again this can conclude multiple agents as deemed appropriate such as nitrates, beta-blockers, diuretics, afterload reducing agents, etc. 3. Anemia The patient is anemic. She received PRBC transfusions. She does appear to be somewhat symptomatically improved. 4. MR He does have an element of MR based on her examination and her echocardiographic findings. It does not appear, based on her echocardiographic findings, that this is hemodynamically significant to be the etiology of her underlying cardiomyopathy or concerns of volume overload. 5. TR Again the patient does have an element of TR. It was listed as mild to moderate on her echocardiogram. It may be secondary to concerns of her underlying elevated pulmonary pressures. 6. Pulmonary hypertension He does have an element of pulmonary hypertension. The etiology is unclear at this time. This may not necessarily be all cardiovascular related. She should continue to be monitored and supported as deemed appropriate as she goes through her medical and surgical evaluation care. 7. Colonic mass She has been evaluated by general surgery. She is now for surgical resection of this mass lesion. She has been diagnosed with adenocarcinoma the colon. According to Dr. Quintero's note based upon her noninvasive studies there is no definitive evidence of metastatic disease at this time. She will continue evaluation care per internal medicine and general surgery. This note was generated with [employer] Dictation software. Every effort was made to ensure accuracy, however, computerized process control programmer mistakes may persist.
[2017-05-03] MEDS: 0.9% NaCl Peripheral Flush Adult/Peds IV (19:54)
[2017-05-04] VITALS (13 sets, daily range): BP systolic 109–124; BP diastolic 59–67; PULSE 68–99; RESP 14–20; TEMP 36.8–37.4; O2SAT 93–99
[2017-05-04 06:40] LABS: Absolute Lymphocyte Count 0.47 X10^3/ul (0.83-4.51); Basophil# 0.02 X10^3/uL; Basophil% 0.3 % (0-1); Eosinophil# 0.06 X10^3/uL; Hematocrit 30.6 % (37-47); Hemoglobin 8.8 g/dl (12.0-15.0); Lymphocyte # 0.47 X10^3/ul (4.0); Lymphocyte % 7.7 % (19-41); Mean Corp Hgb Conc 28.8 g/gl (32-36); Mean Corpuscular Hgb 25.9 pg (27.0-32.0); Mean Platelet Vol. 10.5 fl (6.2-12.0); Monocyte# 0.58 X10^3/uL; Monocyte% 9.5 % (0-10); Neutrophil # 4.97 X10^3/uL (2.7-7.7); Neutrophil % 81.3 % (47-70); Platelet Count 327 K/mm3 (150-450); RBC Distribution Width SD 67.7 fl (35.1-43.9); White Blood Count 6.1 K/mm3 (4.4-11.0)
[2017-05-04 06:45] LABS: POSITIVE COUNT NO; POSITIVE DIFFERENTIAL YES; POSITIVE MORPHOLOGY YES
[2017-05-04 06:46] LABS: Differential Indicated SCAN CRITERIA MET
[2017-05-04 06:50] LABS: Anion Gap 7 (5-15); BUN 12 mg/dL (7-18); BUN/Creat Ratio 15.1 RATIO (10-20); Calcium,Total 7.9 mg/dL (8.5-10.1); Chloride 106 mmol/L (98-107); Creatinine, Serum 0.79 mg/dL (0.55-1.02); EST Glomerular Filtration Rate 77 mL/min (>60); Est Glom Filt Rate - Afr Amer 93 mL/min (>60); Estimated Creatinine Clearance 47.79 ml/min; Glucose 86 mg/dL (70-110); Potassium 4.2 mmol/L (3.5-5.1); Sodium Level 139 mmol/L (136-145)
[2017-05-04 07:02] LABS: Anisocytosis 2+; Differential Comment SCANNED; Hypochromasia 3+; Ovalocyte 1+; Schistocytes RARE
[2017-05-04] MEDS: Famotidine 20 MG Tablet 40 MG PO (10:48)
[2017-05-04] MEDS: Ferrous Sulfate 325 MG Tablet PO ×2 (10:48→17:14)
[2017-05-04] MEDS: Furosemide 40 MG Tablet PO (10:48)
[2017-05-04] MEDS: Carvedilol 3.125 MG TABLET PO ×2 (10:48→21:51)
--- NOTE | 2017-05-04 10:48 | PN.CARD_ITS ---
Subjectve: The patient is awake and alert. She has been up and out of bed in the chair. She has no new acute cardiovascular complaints. Objective: Vital Signs Temp Pulse Resp BP Pulse Ox 98.8 F 79 16 115/67 93 05/04/17 10:14 05/04/17 10:14 05/04/17 10:14 05/04/17 10:14 05/04/17 10:14 Oxygen Flow Rate 2 Oxygen Delivery Method Room Air Weight: 143 lb 4.807 oz Body Mass Index (BMI) 22.5 Intake and Output for Last 24 Hours 05/02/17 05/03/17 05/04/17 23:59 23:59 23:59 Intake Total 3605 / 3605 390 / 390 Output Total 650 / 650 615 / 615 Balance 2955 / 2955 -225 / -225 General: Awake, Alert, Oriented x 3, Cooperative, No Acute Distress Lungs: Clear to auscultation Cardiovascular: Regular Rhythm, Normal S1, Normal S2 Murmur Murmur: Grade 2/6, Harsh, Mid Systolic, LLSB, LVOT Abdomen: Hypoactive Bowel Sounds Extremities: No edema 05/04/17 06:05: WBC 6.1, RBC 3.40 L, Hgb 8.8 L, Hct 30.6 L, MCV 90.0, MCH 25.9 L , MCHC 28.8 L, RDW 23.0 H, RDW Differential 67.7 H, Plt Count 327, MPV 10.5, Immature Gran % (Auto) 0.200, Neut % (Auto) 81.3 H, Lymph % (Auto) 7.7 L, [facility] % (Auto) 9.5, Eos % (Auto) 1.0, Baso % (Auto) 0.3, Absolute Neuts (auto) 5.0, Total Counted Not Reportable 05/04/17 06:05: Sodium 139, Potassium 4.2, Chloride 106, Carbon Dioxide 26.0, Anion Gap 7, BUN 12, Creatinine 0.79, Est GFR (MDRD) Af Amer 93, Est GFR (MDRD) Non-Af 77, BUN/Creatinine Ratio 15.1, Glucose 86, Calcium 7.9 L Rhythm: Sinus rhythm Assessment/Plan 1. Cardiomyopathy The patient has been found by noninvasive studies to have concerns of an underlying cardiomyopathy based upon the parents of her ventricle being mildly globally impaired. It is unclear as to how long this has been present in the patient. She has started medical management. This is included low-dose beta-issa therapy and low-dose JEEVAN inhibitor therapy. She appears to be tolerating this well thus far. She may eventually need further evaluation of this cardiomyopathy with respect to any evidence of contribution from coronary artery disease. This may come noninvasively or invasively. However at the moment, based upon her ongoing clinical course with respect to her concerns of her anemia, colonic mass lesion concerning for carcinoma, it appears that she will continue conservative medical management and be considered for further evaluation in the future. 2. Congestive heart failure It is unclear as to whether her signs and symptoms compatible with CHF are all related to her underlying finding of a cardiomyopathy (mild) versus being related to concerns of her low protein and low albumin levels and third setting versus being related to a potential high output failure secondary to her underlying anemia. There may be a combination of factors contributing to this. The moment she does appear to be clinically improved status post receiving PRBCs and diuretic therapy. She will need to continue medical management. Again this can conclude multiple agents as deemed appropriate such as nitrates, beta-blockers, diuretics, afterload reducing agents, etc. 3. Anemia The patient is anemic. She received PRBC transfusions. She does appear to be somewhat symptomatically improved. 4. MR He does have an element of MR based on her examination and her echocardiographic findings. It does not appear, based on her echocardiographic findings, that this is hemodynamically significant to be the etiology of her underlying cardiomyopathy or concerns of volume overload. 5. TR Again the patient does have an element of TR. It was listed as mild to moderate on her echocardiogram. It may be secondary to concerns of her underlying elevated pulmonary pressures. 6. Pulmonary hypertension He does have an element of pulmonary hypertension. The etiology is unclear at this time. This may not necessarily be all cardiovascular related. She should continue to be monitored and supported as deemed appropriate as she goes through her medical and surgical evaluation care. 7. Colonic mass She has been evaluated by general surgery. She is now for surgical resection of this mass lesion. She has been diagnosed with adenocarcinoma the colon. According to Dr. Quintero's note based upon her noninvasive studies there is no definitive evidence of metastatic disease at this time. She will continue evaluation care per internal medicine and general surgery. Overall, she will continue conservative cardiovascular medical management at this time. She will continue to recuperate from her general surgical procedure. This note was generated with [employer] Dictation software. Every effort was made to ensure accuracy, however, computerized stenographic court reporter mistakes may persist.
[2017-05-04] MEDS: Sertraline 50 MG Tablet PO (10:49)
[2017-05-04] MEDS: Lisinopril 5 MG Tablet PO ×2 (10:49→21:51)
--- NOTE | 2017-05-04 11:16 | PCM.PN.SRG ---
Patient Problems: Active and Suspected Problems CHF (congestive heart failure) (Acute) Coagulopathy (Acute) Elevated TSH (Acute) With a normal T4 Cardiomyopathy (Acute) Pulmonary hypertension (Acute) Pulmonary artery systolic pressure estimated at 56.... Tricuspid regurgitation (Acute) Mitral regurgitation (Acute) Colonic mass (Acute) Preop cardiovascular exam (Acute) Subjective: Patient feels better today than yesterday and also seems more motivated, feels hungry but no flatus yet. doesn't like the clear liquids at this hospital, told her that she can have solid foods once she starts passing gas and ambulation is the best way to do this - Physical Exam General: Alert Oral: Moist Mucosa Neck: Supple Lungs: Normal air movement Abdomen: Soft, Non-Distended, - - dressing with some seepage but has not increased Vital Signs Temp Pulse Resp BP Pulse Ox 98.8 F 79 16 115/67 93 05/04/17 10:14 05/04/17 10:14 05/04/17 10:14 05/04/17 10:14 05/04/17 10:14 Oxygen Flow Rate 2 Oxygen Delivery Method Room Air Weight: 65 kg Body Mass Index (BMI) 22.5 Intake and Output for Last 24 Hours 05/02/17 05/03/17 05/04/17 23:59 23:59 23:59 Intake Total 3605 / 3605 390 / 390 Output Total 650 / 650 615 / 615 Balance 2955 / 2955 -225 / -225 Microbiology Past 72 Hours 04/29/17 09:45 Gram Stain - Final Fluid - Thoracentesis Fluid Body Fluid Culture - Final No growth aerobically. Anaerobic Culture - Preliminary No growth in 48 hours. Laboratory Tests Past 24 Hrs 04/29/17 05/04/17 05/04/17 09:45 06:05 06:05 WBC 6.1 RBC 3.40 L Hgb 8.8 L Hct 30.6 L MCV 90.0 MCH 25.9 L MCHC 28.8 L RDW 23.0 H RDW Differential 67.7 H Plt Count 327 MPV 10.5 Immature Gran % (Auto) 0.200 Neut % (Auto) 81.3 H Lymph % (Auto) 7.7 L Braxton % (Auto) 9.5 Eos % (Auto) 1.0 Baso % (Auto) 0.3 Absolute Neuts (auto) 5.0 Absolute Lymphs (auto) 0.47 L Total Counted Not Reportable Differential Comment SCANNED Hypochromasia 3+ Anisocytosis 2+ Ovalocytes 1+ Schistocytes RARE Sodium 139 Potassium 4.2 Chloride 106 Carbon Dioxide 26.0 Anion Gap 7 BUN 12 Creatinine 0.79 Estim Creat Clear Calc 47.79 Est GFR (MDRD) Af Amer 93 Est GFR (MDRD) Non-Af 77 BUN/Creatinine Ratio 15.1 Glucose 86 Calcium 7.9 L Miscellaneous Cytology SEE PATHOLOGY REPORT Assessment/Plan Active and Suspected Problems CHF (congestive heart failure) (Acute) Coagulopathy (Acute) Elevated TSH (Acute) With a normal T4 Cardiomyopathy (Acute) Pulmonary hypertension (Acute) Pulmonary artery systolic pressure estimated at 56.... Tricuspid regurgitation (Acute) Mitral regurgitation (Acute) Colonic mass (Acute) Preop cardiovascular exam (Acute) Impression: severe anemia - presented to the hospital with this right colon cancer - as found by colonoscopy yesterday - pathology reveals invasive adenocarcinoma - no evidence of metastatic disease by chest/abd/pelv CT, CEA is WNL POD#2 s/p laparoscopic right hemicolectomy Plan: Encourage ambulation sips of clear liquids still, may consider advancing tomorrow encourage incentive spirometry Patient more motivated to move/ambulate, but does not want to ambulate out in the hallways (agoraphobia)- I told her that she should walk around her room as much as possible
--- NOTE | 2017-05-04 15:28 | PCM.PN.HOSP ---
Patient Problems: Active and Suspected Problems CHF (congestive heart failure) (Acute) Coagulopathy (Acute) Elevated TSH (Acute) With a normal T4 Cardiomyopathy (Acute) Pulmonary hypertension (Acute) Pulmonary artery systolic pressure estimated at 56.... Tricuspid regurgitation (Acute) Mitral regurgitation (Acute) Colonic mass (Acute) Preop cardiovascular exam (Acute) Subjective: Tolerating regular diet. No nausea or vomiting. Vitals/I&O's: Vital Signs Temp Pulse Resp BP Pulse Ox 37.1 C 75 16 115/67 93 05/04/17 10:14 05/04/17 11:23 05/04/17 10:14 05/04/17 10:14 05/04/17 10:14 Oxygen Flow Rate 2 Oxygen Delivery Method Room Air Weight: 65 kg Body Mass Index (BMI) 22.5 Intake and Output for Last 24 Hours 05/02/17 05/03/17 05/04/17 23:59 23:59 23:59 Intake Total 3605 / 3605 390 / 390 400 / 400 Output Total 650 / 650 615 / 615 Balance 2955 / 2955 -225 / -225 400 / 400 General: Alert, Cooperative, No apparent distress HEENT: Atraumatic, Normocephalic Neck: No Nodes, Thyroid Normal Size and Texture Lungs: Clear to auscultation, Normal air movement, No rhonchi, No wheeze Cardiovascular: Regular rate, Regular Rhythm, Normal S1, Normal S2, No murmurs Abdomen: Non Tender, Hypoactive Bowel Sounds, Distended Extremities: No clubbing, No cyanosis, No edema, No Calf Tenderness Skin: No rashes, No breakdown Psych/Mental Status: Normal Affect, Appropriate Microbiology Past 72 Hours 04/29/17 09:45 Fluid - Thoracentesis Fluid Gram Stain - Final 04/29/17 09:45 Fluid - Thoracentesis Fluid Body Fluid Culture - Final No growth aerobically. 04/29/17 09:45 Fluid - Thoracentesis Fluid Anaerobic Culture - Preliminary No growth in 48 hours. Laboratory Results 05/04/17 06:05: WBC 6.1, RBC 3.40 L, Hgb 8.8 L, Hct 30.6 L, MCV 90.0, MCH 25.9 L, MCHC 28.8 L, RDW 23.0 H, RDW Differential 67.7 H, Plt Count 327, MPV 10.5, Immature Gran % (Auto) 0.200, Neut % (Auto) 81.3 H, Lymph % (Auto) 7.7 L, [place] % (Auto) 9.5, Eos % (Auto) 1.0, Baso % (Auto) 0.3, Absolute Neuts (auto) 5.0, Absolute Lymphs (auto) 0.47 L, Total Counted Not Reportable, Differential Comment SCANNED, Hypochromasia 3+, Anisocytosis 2+, Ovalocytes 1+, Schistocytes RARE 05/04/17 06:05: Sodium 139, Potassium 4.2, Chloride 106, Carbon Dioxide 26.0, Anion Gap 7, BUN 12, Creatinine 0.79, Estim Creat Clear Calc 47.79, Est GFR (MDRD) Af Amer 93, Est GFR (MDRD) Non-Af 77, BUN/Creatinine Ratio 15.1, Glucose 86, Calcium 7.9 L Current Medications Acetaminophen (Tylenol) 650 mg PO Q6H PRN PRN PRN Reason: Mild Pain (scale 0-3)/T>100.7 Last Admin: 04/25/17 21:11 Dose: 650 mg Bisacodyl (Dulcolax) 10 mg PO DAILY PRN PRN PRN Reason: Constipation Carvedilol (Coreg) 3.125 mg PO BID [facility] Last Admin: 05/04/17 10:48 Dose: 3.125 mg Enoxaparin Sodium (Lovenox) 30 mg SC DAILY@0600 [facility] Last Admin: 05/01/17 05:46 Dose: 30 mg Famotidine (Pepcid) 40 mg PO DAILY [facility] Last Admin: 05/04/17 10:48 Dose: 40 mg [facility] Last Admin: 05/04/17 10:48 Dose: 325 mg Furosemide (Lasix) 40 mg PO DAILY [facility] Last Admin: 05/04/17 10:48 Dose: 40 mg Lisinopril (Zestril) 5 mg PO BID [facility] Last Admin: 05/04/17 10:49 Dose: 5 mg Magnesium Hydroxide (Milk Of Magnesia) 30 ml PO DAILY PRN PRN PRN Reason: Constipation Ondansetron HCl (Zofran) 4 mg IV Q8H PRN PRN PRN Reason: Nausea Oxycodone HCl (Oxyir) 5 mg PO Q4H PRN PRN PRN Reason: Moderate Pain (pain scale 4-5) Last Admin: 05/03/17 21:56 Dose: 5 mg Polyethylene Glycol (Miralax) 17 gm PO DAILY [facility] Last Admin: 05/04/17 10:47 Dose: Not Given Potassium Chloride (K-Dur) 40 meq PO BIDCM [facility] Last Admin: 05/04/17 10:48 Dose: 40 meq Sertraline HCl (Zoloft) 50 mg PO DAILY [facility] Last Admin: 05/04/17 10:49 Dose: 50 mg Sodium Chloride () 5 - 30 ml IV UD PRN PRN Reason: SALINE FLUSH Last Admin: 05/03/17 19:54 Dose: 10 ml Assessment/Plan Active and Suspected Problems CHF (congestive heart failure) (Acute) Coagulopathy (Acute) Elevated TSH (Acute) With a normal T4 Cardiomyopathy (Acute) Pulmonary hypertension (Acute) Pulmonary artery systolic pressure estimated at 56.... Tricuspid regurgitation (Acute) Mitral regurgitation (Acute) Colonic mass (Acute) Preop cardiovascular exam (Acute) 1. acute blood loss anemia: Stable after transfusion of 5 units packed red blood cells. 2. Colon mass Status post a right hemicolectomy postop day #1 Follow-up biopsy results. Tolerating advanced diet. 3. Acute heart failure with reduced ejection fraction EF of 47% from echocardiogram from 04/25/2017 Continue with Lasix, lisinopril, carvedilol. Follow-up with cardiology 4. DVT proph: SCDs. We will monitor the patient overnight but will reveal the discharge patient to longterm facility in the next day or 2. Code Visit Inpatient E&M: 20954 Subs Hosp L2
--- NOTE | 2017-05-04 17:09 | PCM.PN.BLA ---
Progress Note patient started on regular diet as nurses state that she passed flatus, patient states that she had diarrhea has bowel sounds patient encouraged to ambulate patient will be ready for discharge (from a surgical standpoint) tomorrow or the next day (information for discharge planning)
--- NOTE | 2017-05-04 18:02 | NURSING ---
REVIEWED AND AGREED W/ Sana DU'S CHARTING.
[2017-05-05] VITALS (12 sets, daily range): BP systolic 109–144; BP diastolic 67–89; PULSE 64–90; RESP 16–18; TEMP 36.5–37.1; O2SAT 94–97
[2017-05-05 07:11] LABS: Anion Gap 7 (5-15); BUN 18 mg/dL (7-18); BUN/Creat Ratio 19.9 RATIO (10-20); Calcium,Total 7.7 mg/dL (8.5-10.1); Chloride 109 mmol/L (98-107); EST Glomerular Filtration Rate 66 mL/min (>60); Est Glom Filt Rate - Afr Amer 80 mL/min (>60); Glucose 99 mg/dL (70-110); Potassium 4.3 mmol/L (3.5-5.1); Sodium Level 142 mmol/L (136-145)
[2017-05-05 07:15] LABS: Absolute Lymphocyte Count 0.46 X10^3/ul (0.83-4.51); Absolute Neutrophil Count 4.5 X10^3/uL (2.0-7.7); Basophil# 0.02 X10^3/uL; Basophil% 0.4 % (0-1); Eosinophil# 0.13 X10^3/uL; Eosinophils% 2.4 % (0-5); Hematocrit 29.9 % (37-47); Hemoglobin 8.7 g/dl (12.0-15.0); Lymphocyte # 0.46 X10^3/ul (4.0); Lymphocyte % 8.3 % (19-41); Mean Corp Hgb Conc 29.1 g/gl (32-36); Mean Corpuscular Hgb 25.9 pg (27.0-32.0); Mean Platelet Vol. 10.3 fl (6.2-12.0); Monocyte# 0.45 X10^3/uL; Monocyte% 8.2 % (0-10); Neutrophil # 4.45 X10^3/uL (2.7-7.7); Neutrophil % 80.5 % (47-70); Platelet Count 314 K/mm3 (150-450); RBC Distribution Width CV 22.7 % (11.6-14.6); RBC Distribution Width SD 69.4 fl (35.1-43.9); Red Blood Count 3.36 M/mm3 (4.2-5.4); White Blood Count 5.5 K/mm3 (4.4-11.0)
[2017-05-05 07:24] LABS: Differential Indicated SCAN CRITERIA MET; POSITIVE COUNT NO; POSITIVE DIFFERENTIAL YES; POSITIVE MORPHOLOGY YES
[2017-05-05 08:50] LABS: Anisocytosis 2+; Differential Comment SCANNED
[2017-05-05] MEDS: Sertraline 50 MG Tablet PO (08:56)
[2017-05-05] MEDS: Lisinopril 5 MG Tablet PO ×2 (08:56→22:40)
[2017-05-05] MEDS: Furosemide 40 MG Tablet PO (08:56)
[2017-05-05] MEDS: Famotidine 20 MG Tablet 40 MG PO (08:56)
[2017-05-05] MEDS: Ferrous Sulfate 325 MG Tablet PO ×2 (08:57→16:17)
[2017-05-05] MEDS: Carvedilol 3.125 MG TABLET PO ×2 (08:57→22:39)
--- NOTE | 2017-05-05 10:27 | PN.SURG_ITS ---
Patient Problems: Active and Suspected Problems CHF (congestive heart failure) (Acute) Coagulopathy (Acute) Elevated TSH (Acute) With a normal T4 Cardiomyopathy (Acute) Pulmonary hypertension (Acute) Pulmonary artery systolic pressure estimated at 56.... Tricuspid regurgitation (Acute) Mitral regurgitation (Acute) Colonic mass (Acute) Preop cardiovascular exam (Acute) Subjective: patient has minimal abdominal pain, had loose bowel movement this morning - Physical Exam General: Alert Oral: Moist Mucosa Neck: Supple Abdomen: Bowel Sounds Present, Soft, - - dressing intact Vital Signs Temp Pulse Resp BP Pulse Ox 97.7 F L 88 18 144/89 H 96 05/05/17 08:52 05/05/17 08:52 05/05/17 08:52 05/05/17 08:52 05/05/17 08:52 Oxygen Flow Rate 2 Oxygen Delivery Method Room Air Weight: 67.7 kg Body Mass Index (BMI) 22.5 Intake and Output for Last 24 Hours 05/03/17 05/04/17 05/05/17 23:59 23:59 23:59 Intake Total 390 / 390 1200 / 1200 120 / 120 Output Total 615 / 615 Balance -225 / -225 1200 / 1200 120 / 120 Microbiology Past 72 Hours 04/29/17 09:45 Gram Stain - Final Fluid - Thoracentesis Fluid Body Fluid Culture - Final No growth aerobically. Anaerobic Culture - Final No growth in 5 days. Laboratory Tests Past 24 Hrs 05/05/17 05/05/17 06:25 06:25 WBC 5.5 RBC 3.36 L Hgb 8.7 L Hct 29.9 L MCV 89.0 MCH 25.9 L MCHC 29.1 L RDW 22.7 H RDW Differential 69.4 H Plt Count 314 MPV 10.3 Immature Gran % (Auto) 0.200 Neut % (Auto) 80.5 H Lymph % (Auto) 8.3 L [place] % (Auto) 8.2 Eos % (Auto) 2.4 Baso % (Auto) 0.4 Absolute Neuts (auto) 4.5 Absolute Lymphs (auto) 0.46 L Total Counted Not Reportable Differential Comment SCANNED Anisocytosis 2+ Sodium 142 Potassium 4.3 Chloride 109 H Carbon Dioxide 26.0 Anion Gap 7 BUN 18 Creatinine 0.90 Estim Creat Clear Calc 53.10 Est GFR (MDRD) Af Amer 80 Est GFR (MDRD) Non-Af 66 BUN/Creatinine Ratio 19.9 Glucose 99 Calcium 7.7 L Assessment/Plan Active and Suspected Problems CHF (congestive heart failure) (Acute) Coagulopathy (Acute) Elevated TSH (Acute) With a normal T4 Cardiomyopathy (Acute) Pulmonary hypertension (Acute) Pulmonary artery systolic pressure estimated at 56.... Tricuspid regurgitation (Acute) Mitral regurgitation (Acute) Colonic mass (Acute) Preop cardiovascular exam (Acute) Impression: severe anemia - presented to the hospital with this right colon cancer - as found by colonoscopy yesterday - pathology reveals invasive adenocarcinoma - no evidence of metastatic disease by chest/abd/pelv CT, CEA is WNL POD#3 s/p laparoscopic right hemicolectomy Plan: Encourage ambulation/IS - patient poor motivation Tolerating regular diet I stressed to Patient need to move/ambulate, but does not want to ambulate out in the hallways (agoraphobia)- I told her that she should walk around her room as much as possible, she seems to have an excuse why she can't (can't lift herself with both arms, bar is only on left side of wall, walker is not stable enough, etc.) can discharge from surgical standpoint
--- NOTE | 2017-05-05 13:28 | PCM.TXEXTCAR ---
- Diet 05/04/17 17:15 Diet: Regular Diet Is pt able to select menu?: Yes Diet Comments: 2 GM sodium, no carbonated beverages, sips only - Routine Orders/Code Status Routine Lab Work: CBC, BMP - Wound(s) L posterior flank Wound Type: Puncture Chest Wound Type: Redness from Tele stickers ABDOMINAL Wound Type: Surgical Incision Dressing Change: Dry Sterile Dressing - Therapies Weight Bearing: Full weight bearing Extremity Affected:: Bilateral Lower Physical Therapy: Eval and Treat Occupational Therapy: Eval and Treat - Allergies/Procedures Done in Hospital Allergies/Adverse Reactions: Allergies No Known Allergies Allergy (Verified 04/25/17 05:02) - Type of Care/Length of Stay Estimated LOS: Convalescent Care Less Than 30 days Type of Care Needed: Intermediate Rehab Potential: Good Prognosis: Good - Additional Orders/Day of Discharge Day of Discharge: 05/05/17 - Dietary and Speech Recommendations Dietitian Recommendations/Changes: Cardiac, low sodium, low residue/no gastric stim, FR as needed. Daily weight. - Follow Up Care Primary Care Physician: NOT,DEFINED [NON-STAFF] - Please Follow Up With: Vesta Quintero MD When: 2 weeks Please Follow Up With: Shlomo Campbell MD When: 2-4 weeks
--- NOTE | 2017-05-05 13:42 | CASEMGMT ---
[facility] faxed information to [facility] for level of care. Once level of care obtained patient is ready for d/c. [facility] faxed updates to [facility] and wrote on fax face sheet that patient will likely be ready tomorrow. Plan: d/c to [facility] once level of care received from [facility]. Rosi CASILLAS MSW
--- NOTE | 2017-05-05 14:46 | PCM.PN.HOSP ---
Patient Problems: Active and Suspected Problems CHF (congestive heart failure) (Acute) Coagulopathy (Acute) Elevated TSH (Acute) With a normal T4 Cardiomyopathy (Acute) Pulmonary hypertension (Acute) Pulmonary artery systolic pressure estimated at 56.... Tricuspid regurgitation (Acute) Mitral regurgitation (Acute) Colonic mass (Acute) Preop cardiovascular exam (Acute) Subjective: Current diet. Some abdominal discomfort but otherwise feeling well. Vitals/I&O's: Vital Signs Temp Pulse Resp BP Pulse Ox 36.5 C L 88 18 144/89 H 97 05/05/17 08:52 05/05/17 14:24 05/05/17 14:24 05/05/17 08:52 05/05/17 14:24 Oxygen Flow Rate 2 Oxygen Delivery Method Room Air Weight: 67.7 kg Body Mass Index (BMI) 22.5 Intake and Output for Last 24 Hours 05/03/17 05/04/17 05/05/17 23:59 23:59 23:59 Intake Total 390 / 390 1200 / 1200 920 / 920 Output Total 615 / 615 Balance -225 / -225 1200 / 1200 920 / 920 General: Alert, Cooperative, No apparent distress HEENT: Atraumatic, Normocephalic Neck: No Nodes, Thyroid Normal Size and Texture Lungs: Clear to auscultation, Normal air movement, No rhonchi, No wheeze Cardiovascular: Regular rate, Regular Rhythm, Normal S1, Normal S2 Abdomen: Soft, Non Tender, Distended Extremities: No edema, No Calf Tenderness Psych/Mental Status: Normal Affect, Appropriate Microbiology Past 72 Hours 04/29/17 09:45 Fluid - Thoracentesis Fluid Gram Stain - Final 04/29/17 09:45 Fluid - Thoracentesis Fluid Body Fluid Culture - Final No growth aerobically. 04/29/17 09:45 Fluid - Thoracentesis Fluid Anaerobic Culture - Final No growth in 5 days. Laboratory Results 05/05/17 06:25: WBC 5.5, RBC 3.36 L, Hgb 8.7 L, Hct 29.9 L, MCV 89.0, MCH 25.9 L, MCHC 29.1 L, RDW 22.7 H, RDW Differential 69.4 H, Plt Count 314, MPV 10.3, Immature Gran % (Auto) 0.200, Neut % (Auto) 80.5 H, Lymph % (Auto) 8.3 L, [place] % (Auto) 8.2, Eos % (Auto) 2.4, Baso % (Auto) 0.4, Absolute Neuts (auto) 4.5, Absolute Lymphs (auto) 0.46 L, Total Counted Not Reportable, Differential Comment SCANNED, Anisocytosis 2+ 05/05/17 06:25: Sodium 142, Potassium 4.3, Chloride 109 H, Carbon Dioxide 26.0, Anion Gap 7, BUN 18, Creatinine 0.90, Estim Creat Clear Calc 53.10, Est GFR (MDRD) Af Amer 80, Est GFR (MDRD) Non-Af 66, BUN/Creatinine Ratio 19.9, Glucose 99, Calcium 7.7 L Current Medications Acetaminophen (Tylenol) 650 mg PO Q6H PRN PRN PRN Reason: Mild Pain (scale 0-3)/T>100.7 Last Admin: 04/25/17 21:11 Dose: 650 mg Bisacodyl (Dulcolax) 10 mg PO DAILY PRN PRN PRN Reason: Constipation Carvedilol (Coreg) 3.125 mg PO BID [facility] Last Admin: 05/05/17 08:57 Dose: 3.125 mg Enoxaparin Sodium (Lovenox) 30 mg SC DAILY@0600 [facility] Last Admin: 05/01/17 05:46 Dose: 30 mg Famotidine (Pepcid) 40 mg PO DAILY [facility] Last Admin: 05/05/17 08:56 Dose: 40 mg [facility] Last Admin: 05/05/17 08:57 Dose: 325 mg Furosemide (Lasix) 40 mg PO DAILY [facility] Last Admin: 05/05/17 08:56 Dose: 40 mg Lisinopril (Zestril) 5 mg PO BID [facility] Last Admin: 05/05/17 08:56 Dose: 5 mg Magnesium Hydroxide (Milk Of Magnesia) 30 ml PO DAILY PRN PRN PRN Reason: Constipation Ondansetron HCl (Zofran) 4 mg IV Q8H PRN PRN PRN Reason: Nausea Oxycodone HCl (Oxyir) 5 mg PO Q4H PRN PRN PRN Reason: Moderate Pain (pain scale 4-5) Last Admin: 05/03/17 21:56 Dose: 5 mg Polyethylene Glycol (Miralax) 17 gm PO DAILY [facility] Last Admin: 05/05/17 08:57 Dose: Not Given Potassium Chloride (K-Dur) 40 meq PO BIDCM [facility] Last Admin: 05/05/17 08:56 Dose: 40 meq Sertraline HCl (Zoloft) 50 mg PO DAILY [facility] Last Admin: 05/05/17 08:56 Dose: 50 mg Sodium Chloride () 5 - 30 ml IV UD PRN PRN Reason: SALINE FLUSH Last Admin: 05/03/17 19:54 Dose: 10 ml Assessment/Plan Active and Suspected Problems CHF (congestive heart failure) (Acute) Coagulopathy (Acute) Elevated TSH (Acute) With a normal T4 Cardiomyopathy (Acute) Pulmonary hypertension (Acute) Pulmonary artery systolic pressure estimated at 56.... Tricuspid regurgitation (Acute) Mitral regurgitation (Acute) Colonic mass (Acute) Preop cardiovascular exam (Acute) 1. acute blood loss anemia: Stable after transfusion of 5 units packed red blood cells. 2. Colon mass Status post a right hemicolectomy postop day #1 Follow-up biopsy results. Tolerating advanced diet. 3. Acute heart failure with reduced ejection fraction EF of 47% from echocardiogram from 04/25/2017 Continue with Lasix, lisinopril, carvedilol. Follow-up with cardiology 4. DVT proph: SCDs. Patient medically stable. Currently waiting on insurance approval for [facility] to a [facility]. Anticipated date of discharge is May 06. Code Visit Inpatient E&M: [id number] Subs Hosp L2
--- NOTE | 2017-05-05 18:29 | NURSING ---
REVIEWED AND AGREED W/ Sana DU'S CHARTING.
[2017-05-06 02:11] VITALS: BP 110/48; PULSE 60; RESP 18; TEMP 37.2; O2SAT 96
[2017-05-06 03:21] VITALS: PULSE 86
[2017-05-06 06:59] VITALS: PULSE 75
--- NOTE | 2017-05-06 07:46 | PCM.PN.SRG ---
Patient Problems: Active and Suspected Problems CHF (congestive heart failure) (Acute) Coagulopathy (Acute) Elevated TSH (Acute) With a normal T4 Cardiomyopathy (Acute) Pulmonary hypertension (Acute) Pulmonary artery systolic pressure estimated at 56.... Tricuspid regurgitation (Acute) Mitral regurgitation (Acute) Colonic mass (Acute) Preop cardiovascular exam (Acute) Subjective: patient states that she feels the same, tolerating regular diet - Physical Exam Vital Signs Temp Pulse Resp BP Pulse Ox 98.9 F 75 18 110/48 L 96 05/06/17 02:11 05/06/17 06:59 05/06/17 02:11 05/06/17 02:11 05/06/17 02:11 Oxygen Flow Rate 2 Oxygen Delivery Method Room Air Weight: 62.6 kg Body Mass Index (BMI) 22.5 Intake and Output for Last 24 Hours 05/04/17 05/05/17 05/06/17 23:59 23:59 23:59 Intake Total 1200 / 1200 1520 / 1520 360 / 360 Balance 1200 / 1200 1520 / 1520 360 / 360 Microbiology Past 72 Hours 04/29/17 09:45 Gram Stain - Final Fluid - Thoracentesis Fluid Body Fluid Culture - Final No growth aerobically. Anaerobic Culture - Final No growth in 5 days. Laboratory Tests Past 24 Hrs 05/05/17 05/06/17 05/06/17 06:25 07:10 07:10 WBC Pending RBC Pending Hgb Pending Hct Pending MCV Pending MCH Pending MCHC Pending RDW Pending RDW Differential Pending Plt Count Pending Total Counted Not Reportable Differential Comment SCANNED Anisocytosis 2+ Sodium Pending Potassium Pending Chloride Pending Carbon Dioxide Pending Anion Gap Pending BUN Pending Creatinine Pending Est GFR (MDRD) Af Amer Pending Est GFR (MDRD) Non-Af Pending BUN/Creatinine Ratio Pending Glucose Pending Calcium Pending Magnesium Pending Assessment/Plan Active and Suspected Problems CHF (congestive heart failure) (Acute) Coagulopathy (Acute) Elevated TSH (Acute) With a normal T4 Cardiomyopathy (Acute) Pulmonary hypertension (Acute) Pulmonary artery systolic pressure estimated at 56.... Tricuspid regurgitation (Acute) Mitral regurgitation (Acute) Colonic mass (Acute) Preop cardiovascular exam (Acute) Impression: severe anemia - presented to the hospital with this right colon cancer - as found by colonoscopy yesterday - pathology reveals invasive adenocarcinoma - no evidence of metastatic disease by chest/abd/pelv CT, CEA is WNL POD#4 s/p laparoscopic right hemicolectomy Plan: Encourage ambulation/IS - patient poor motivation - discharge to nursing/rehab facility which will promote this Tolerating regular diet can discharge from surgical standpoint
--- NOTE | 2017-05-06 07:47 | PCM.DC.GS ---
Discharge Diet: No Restrictions - encourage drink plenty of fluids Discharge Activity: Return to Normal Activity Lifting Restrictions: no lifting greater than 20 pounds for one month Call your doctor if your incision/area has: Continuous Slow Oozing, Sudden Increased Bleeding, Foul Smelling Discharge Call your doctor if you observe: Fever of 101 or Higher Additional Dressing/Incision Instructions:: Leave dressings in place. May get wet in shower - do not scrub at sites. Do not soak - no tub baths/swimming Allergies/Adverse Reactions: Allergies No Known Allergies Allergy (Verified 04/25/17 05:02) Medications to take at Discharge NK [NK] 04/25/17 Primary Care Physician: NOT,DEFINED [NON-STAFF] - Please Follow Up With: Vesta Quintero MD - call When: in 1-2 weeks, please call for date and time Please Follow Up With: Shlomo Campbell MD When: 2-4 weeks
[2017-05-06 07:54] LABS: Hematocrit 29.5 % (37-47); Hemoglobin 8.4 g/dl (12.0-15.0); Mean Corp Hgb Conc 28.5 g/gl (32-36); Mean Corpuscular Volume 91.3 fL (81-99); Mean Platelet Vol. 10.7 fl (6.2-12.0); Platelet Count 401 K/mm3 (150-450); RBC Distribution Width SD 69.1 fl (35.1-43.9); Red Blood Count 3.23 M/mm3 (4.2-5.4); Scan Indicated on CBC? Y/N YES- FLAGS NOTED; White Blood Count 5.6 K/mm3 (4.4-11.0)
[2017-05-06 08:10] VITALS: BP 131/75; PULSE 70; RESP 18; TEMP 36.8; O2SAT 98
[2017-05-06 08:19] LABS: Anion Gap 6 (5-15); BUN 26 mg/dL (7-18); Chloride 111 mmol/L (98-107); Creatinine, Serum 0.84 mg/dL (0.55-1.02); EST Glomerular Filtration Rate 72 mL/min (>60); Est Glom Filt Rate - Afr Amer 87 mL/min (>60); Estimated Creatinine Clearance 56.89 ml/min; Glucose 95 mg/dL (70-110); Magnesium 2.1 mg/dL (1.6-2.6); Potassium 4.7 mmol/L (3.5-5.1); Sodium Level 144 mmol/L (136-145)
[2017-05-06] MEDS: Ferrous Sulfate 325 MG Tablet PO (08:26)
[2017-05-06] MEDS: Sertraline 50 MG Tablet PO (10:39)
[2017-05-06] MEDS: Lisinopril 5 MG Tablet PO (10:39)
[2017-05-06] MEDS: Famotidine 20 MG Tablet 40 MG PO (10:39)
[2017-05-06] MEDS: Carvedilol 3.125 MG TABLET PO (10:39)
[2017-05-06] MEDS: Furosemide 40 MG Tablet PO (10:39)
[2017-05-06 11:06] VITALS: PULSE 77
--- NOTE | 2017-05-06 12:29 | PN_ITS ---
Patient Problems: Active and Suspected Problems CHF (congestive heart failure) (Acute) Coagulopathy (Acute) Elevated TSH (Acute) With a normal T4 Cardiomyopathy (Acute) Pulmonary hypertension (Acute) Pulmonary artery systolic pressure estimated at 56.... Tricuspid regurgitation (Acute) Mitral regurgitation (Acute) Colonic mass (Acute) Preop cardiovascular exam (Acute) Subjective: Abdomen feeling better. Patient still with cough but nonproductive but seems to be less frequent. No abdominal pain. Vitals/I&O's: Vital Signs Temp Pulse Resp BP Pulse Ox 36.8 C 77 18 131/75 H 98 05/06/17 08:10 05/06/17 11:06 05/06/17 08:10 05/06/17 08:10 05/06/17 08:10 Oxygen Flow Rate 2 Oxygen Delivery Method Room Air Weight: 62.6 kg Body Mass Index (BMI) 22.5 Intake and Output for Last 24 Hours 05/04/17 05/05/17 05/06/17 23:59 23:59 23:59 Intake Total 1200 / 1200 1520 / 1520 720 / 720 Balance 1200 / 1200 1520 / 1520 720 / 720 General: Alert, Cooperative, No apparent distress HEENT: Atraumatic, Normocephalic Neck: No Nodes, Thyroid Normal Size and Texture Lungs: Clear to auscultation, Normal air movement, No rhonchi, No wheeze Cardiovascular: Regular rate, Regular Rhythm, Normal S1, Normal S2 Abdomen: Bowel Sounds Present, Soft, Non Tender, Non-Distended Extremities: No edema, No Calf Tenderness Microbiology Past 72 Hours 04/29/17 09:45 Fluid - Thoracentesis Fluid Gram Stain - Final 04/29/17 09:45 Fluid - Thoracentesis Fluid Body Fluid Culture - Final No growth aerobically. 04/29/17 09:45 Fluid - Thoracentesis Fluid Anaerobic Culture - Final No growth in 5 days. Laboratory Results 05/06/17 07:10: WBC 5.6, RBC 3.23 L, Hgb 8.4 L, Hct 29.5 L, MCV 91.3, MCH 26.0 L , MCHC 28.5 L, RDW 23.0 H, RDW Differential 69.1 H, Plt Count 401, MPV 10.7, Differential Comment 05/06/17 07:10: Sodium 144, Potassium 4.7, Chloride 111 H, Carbon Dioxide 27.0, Anion Gap 6, BUN 26 H, Creatinine 0.84, Estim Creat Clear Calc 56.89, Est GFR ( MDRD) Af Amer 87, Est GFR (MDRD) Non-Af 72, BUN/Creatinine Ratio 31.0 H, Glucose 95, Calcium 8.0 L, Magnesium 2.1 Current Medications Acetaminophen (Tylenol) 650 mg PO Q6H PRN PRN PRN Reason: Mild Pain (scale 0-3)/T>100.7 Last Admin: 04/25/17 21:11 Dose: 650 mg Bisacodyl (Dulcolax) 10 mg PO DAILY PRN PRN PRN Reason: Constipation Carvedilol (Coreg) 3.125 mg PO BID [facility] Last Admin: 05/06/17 10:39 Dose: 3.125 mg Famotidine (Pepcid) 40 mg PO DAILY [facility] Last Admin: 05/06/17 10:39 Dose: 40 mg [facility] Last Admin: 05/06/17 08:26 Dose: 325 mg Furosemide (Lasix) 40 mg PO DAILY [facility] Last Admin: 05/06/17 10:39 Dose: 40 mg Lisinopril (Zestril) 5 mg PO BID [facility] Last Admin: 05/06/17 10:39 Dose: 5 mg Magnesium Hydroxide (Milk Of Magnesia) 30 ml PO DAILY PRN PRN PRN Reason: Constipation Ondansetron HCl (Zofran) 4 mg IV Q8H PRN PRN PRN Reason: Nausea Polyethylene Glycol (Miralax) 17 gm PO DAILY [facility] Last Admin: 05/06/17 10:40 Dose: Not Given Potassium Chloride (K-Dur) [facility] Last Admin: 05/06/17 08:26 Dose: 40 meq Sertraline HCl (Zoloft) 50 mg PO DAILY [facility] Last Admin: 05/06/17 10:39 Dose: 50 mg Sodium Chloride () 5 - 30 ml IV UD PRN PRN Reason: SALINE FLUSH Last Admin: 05/03/17 19:54 Dose: 10 ml Assessment/Plan Active and Suspected Problems CHF (congestive heart failure) (Acute) Coagulopathy (Acute) Elevated TSH (Acute) With a normal T4 Cardiomyopathy (Acute) Pulmonary hypertension (Acute) Pulmonary artery systolic pressure estimated at 56.... Tricuspid regurgitation (Acute) Mitral regurgitation (Acute) Colonic mass (Acute) Preop cardiovascular exam (Acute) 1. acute blood loss anemia: Stable after transfusion of 5 units packed red blood cells. Secondary to colon mass. 2. Colon mass Status post a right hemicolectomy postop day #1 Follow-up biopsy results. Tolerating advanced diet. 3. Acute heart failure with reduced ejection fraction EF of 47% from echocardiogram from 04/25/2017 Continue with Lasix, lisinopril, carvedilol. Follow-up with cardiology 4. DVT proph: SCDs. Discharge today.
--- NOTE | 2017-05-06 12:31 | PCM.TXEXTCAR ---
- Diet 05/04/17 17:15 Diet: Regular Diet Is pt able to select menu?: Yes Diet Comments: 2 GM sodium, no carbonated beverages, sips only - Routine Orders/Code Status Routine Lab Work: CBC, BMP - Wound(s) L posterior flank Wound Type: Puncture Chest Wound Type: Redness from Tele stickers ABDOMINAL Wound Type: Surgical Incision Dressing Change: Dry Sterile Dressing - Therapies Weight Bearing: Full weight bearing Extremity Affected:: Bilateral Lower Physical Therapy: Eval and Treat Occupational Therapy: Eval and Treat - Allergies/Procedures Done in Hospital Allergies/Adverse Reactions: Allergies No Known Allergies Allergy (Verified 04/25/17 05:02) Procedures: 2-D Echocardiogram - Mild global left ventricular systolic dysfunction. The estimated ejection fraction is 47 %. The left atrium is mildly enlarged. The right atrium is mildly enlarged. Mild (1+) eccentric mitral valve insufficiency. Mild to moderate (1-2+) tricuspid valve insufficiency. Moderate pulmonary hypertension. Small pericardial effusion. There are no echocardiographic indications of cardiac tamponade. - Type of Care/Length of Stay Estimated LOS: Convalescent Care Less Than 30 days Type of Care Needed: Intermediate Rehab Potential: Good Prognosis: Good - Additional Orders/Day of Discharge Day of Discharge: 05/06/17 - Dietary and Speech Recommendations Dietitian Recommendations/Changes: Cardiac, low sodium, low residue/no gastric stim, FR as needed. Daily weight. - Follow Up Care Primary Care Physician: NOT,DEFINED [NON-STAFF] - Please Follow Up With: Vesta Quintero MD - call When: in 1-2 weeks, please call for date and time Please Follow Up With: Shlomo Campbell MD When: 2-4 weeks
--- NOTE | 2017-05-06 12:33 | PCM.DC.SUM ---
Discharge Date and Diagnosis - Problem List Patient Problems: Active and Suspected Problems CHF (congestive heart failure) (Acute) Coagulopathy (Acute) Elevated TSH (Acute) With a normal T4 Cardiomyopathy (Acute) Pulmonary hypertension (Acute) Pulmonary artery systolic pressure estimated at 56.... Tricuspid regurgitation (Acute) Mitral regurgitation (Acute) Colonic mass (Acute) Preop cardiovascular exam (Acute) Date of Admission: 04/25/17 Date of Discharge: 05/06/17 - Primary Discharge Diagnosis Active and Suspected Problems CHF (congestive heart failure) (Acute) Coagulopathy (Acute) Elevated TSH (Acute) With a normal T4 Cardiomyopathy (Acute) Pulmonary hypertension (Acute) Pulmonary artery systolic pressure estimated at 56.... Tricuspid regurgitation (Acute) Mitral regurgitation (Acute) Colonic mass (Acute) Preop cardiovascular exam (Acute) - Secondary Discharge Diagnosis Chronic Problems Severe anemia (Chronic) Iron deficiency (Chronic) Biatrial enlargement (Chronic) Mild Hospital Course and Treatment Imaging Results: Clinical Impression(s) from Imaging Studies Chest X-Ray 04/25/17 05:05 IMPRESSION: Cardiomegaly with small bilateral pleural effusions. Electronically Signed: Jorge Raya MD at 6:26 EST , Service support , Chest X-Ray 04/26/17 05:55 IMPRESSION: Cardiomegaly. CHF. Bibasilar atelectasis and/or infiltrates worse at the left lung base with blunting of both costophrenic angles. There has been mild progression as compared to prior study. Electronically Signed: Duran Steven MD at 8:03 EST Tel [phone], Service support , Abdomen/Pelvis CT 04/28/17 13:14 IMPRESSION: Diffuse heterogeneous mass surrounding the cecum. There is mild nodularity and possible extension of the mass to the terminal ileum. As noted in the history, this is concerning for neoplasm. Large bilateral pleural effusions. Diffuse soft tissue edema. Other findings as above. Electronically Signed: Clive Cancino MD at 17:06 EST , Service support , Chest CT 04/28/17 13:14 IMPRESSION: There is a small pericardial effusion. Large bilateral pleural effusions. Lingular and left lower lobe pneumonia. Electronically Signed: Clive Cancino MD at 17:08 EST , Service support , Thoracentesis Ultrasound 04/29/17 03:46 IMPRESSION: Ultrasound-guided left thoracentesis. Electronically Signed: Duran Steven MD at 13:07 EST Tel [phone], Service support , Chest X-Ray 04/29/17 10:00 IMPRESSION: Status post left thoracentesis. There is no evidence of pneumothorax. Electronically Signed: Duran Steven MD at 13:36 EST Tel [phone], Service support , Chest X-Ray 04/29/17 10:00 IMPRESSION: Status post left thoracentesis. There is no evidence of pneumothorax. Electronically Signed: Duran Steven MD at 13:06 EST Tel [phone], Service support , Vesta Quintero, Shlomo Campbell, Shawn Boone Operations: - - Laparoscopic right hemicolectomy. Procedures: 2-D Echocardiogram - Mild global left ventricular systolic dysfunction. The estimated ejection fraction is 47 %. The left atrium is mildly enlarged. The right atrium is mildly enlarged. Mild (1+) eccentric mitral valve insufficiency. Mild to moderate (1-2+) tricuspid valve insufficiency. Moderate pulmonary hypertension. Small pericardial effusion. There are no echocardiographic indications of cardiac tamponade. Summary of Care Provided: The patient is a 66 year old F is with shortness of breath and chest pain. Patient was found to have a hemoglobin of 3.2. Patient was transfused 5 units of packed red blood cells. Hemoglobin improved and remained stable. Patient had a CT of the abdomen pelvis that showed diffuse heterogenous mass surrounding the cecum. Patient underwent a right hemicolectomy by Dr. Quintero on the . Patient's hemoglobin has remained stable here. He did have shortness of breath and had a BNP of 3463. Echocardiogram showed an ejection fraction of 47%. Chest x-ray showed small bilateral pleural effusions. Patient did undergo a thoracentesis on the where they removed 320 cc of fluid. The fluid was transudate of. Due to the patient's underlying heart failure. Patient had heart failure likely due to high output given patient's severe anemia. Patient has been seen by cardiology and is on medical treatment for her heart. Patient will follow up with cardiology as outpatient. [] Discharge Diet: No Restrictions - encourage drink plenty of fluids Discharge Activity: Return to Normal Activity Call your doctor if your incision/area has: Continuous Slow Oozing, Sudden Increased Bleeding, Foul Smelling Discharge Call your doctor if you observe: Fever of 101 or Higher Additional Dressing/Incision Instructions:: Leave dressings in place. May get wet in shower - do not scrub at sites. Do not soak - no tub baths/swimming Home Medications: Medications to take at Discharge Acetaminophen [Tylenol Tablet] 650 mg PO Q6H PRN PRN tablet 05/06/17 Bisacodyl [Dulcolax] 10 mg PO DAILY PRN PRN tablet 05/06/17 Carvedilol [Coreg (Beta Salomon)] 3.125 mg PO BID tablet 05/06/17 Famotidine [Pepcid] 40 mg PO DAILY tablet 05/06/17 Ferrous Sulfate 325 mg PO BIDCM tablet 05/06/17 Furosemide [Lasix] 40 mg PO DAILY tablet 05/06/17 Lisinopril [Zestril] 5 mg PO BID tablet 05/06/17 Magnesium Hydroxide [Milk Of Magnesia] 30 ml PO DAILY PRN PRN udc 05/06/17 Polyethylene Glycol 3350 [Miralax] 17 gm PO DAILY packet 05/06/17 Sertraline HCl [Zoloft] 50 mg PO DAILY tablet 05/06/17 Primary Care Physician: NOT,DEFINED [NON-STAFF] - Please Follow Up With: Vesta Quintero MD - call When: in 1-2 weeks, please call for date and time Please Follow Up With: Shlomo Campbell MD When: 2-4 weeks Disposition: Longterm facility Minutes spent on discharge:: 40 Patient Condition:: Fair Meaningful Use Info Meaningful Use Diagnoses (Choose all that apply): CHF - CHF JEEVAN/ARB ordered at discharge?: Yes Documented LVEF (%): 47 Code Visit Inpatient E&M: 41715 Disch Hosp
--- NOTE | 2017-05-06 12:42 | DS.PCM_ITS ---
Discharge Date and Diagnosis - Problem List Patient Problems: Active and Suspected Problems CHF (congestive heart failure) (Acute) Coagulopathy (Acute) Elevated TSH (Acute) With a normal T4 Cardiomyopathy (Acute) Pulmonary hypertension (Acute) Pulmonary artery systolic pressure estimated at 56.... Tricuspid regurgitation (Acute) Mitral regurgitation (Acute) Colonic mass (Acute) Preop cardiovascular exam (Acute) Date of Admission: 04/25/17 Date of Discharge: 05/06/17 - Primary Discharge Diagnosis Active and Suspected Problems CHF (congestive heart failure) (Acute) Coagulopathy (Acute) Elevated TSH (Acute) With a normal T4 Cardiomyopathy (Acute) Pulmonary hypertension (Acute) Pulmonary artery systolic pressure estimated at 56.... Tricuspid regurgitation (Acute) Mitral regurgitation (Acute) Colonic mass (Acute) Preop cardiovascular exam (Acute) - Secondary Discharge Diagnosis Chronic Problems Severe anemia (Chronic) Iron deficiency (Chronic) Biatrial enlargement (Chronic) Mild Hospital Course and Treatment Imaging Results: Clinical Impression(s) from Imaging Studies Chest X-Ray 04/25/17 05:05 IMPRESSION: Cardiomegaly with small bilateral pleural effusions. Electronically Signed: Jorge Raay MD at 6:26 EST , Service support , Chest X-Ray 04/26/17 05:55 IMPRESSION: Cardiomegaly. CHF. Bibasilar atelectasis and/or infiltrates worse at the left lung base with blunting of both costophrenic angles. There has been mild progression as compared to prior study. Electronically Signed: Duran Steven MD at 8:03 EST Tel [phone], Service support , Abdomen/Pelvis CT 04/28/17 13:14 IMPRESSION: Diffuse heterogeneous mass surrounding the cecum. There is mild nodularity and possible extension of the mass to the terminal ileum. As noted in the history, this is concerning for neoplasm. Large bilateral pleural effusions. Diffuse soft tissue edema. Other findings as above. Electronically Signed: Clive Cancino MD at 17:06 EST , Service support , Chest CT 04/28/17 13:14 IMPRESSION: There is a small pericardial effusion. Large bilateral pleural effusions. Lingular and left lower lobe pneumonia. Electronically Signed: Clive Cancino MD at 17:08 EST , Service support , Thoracentesis Ultrasound 04/29/17 03:46 IMPRESSION: Ultrasound-guided left thoracentesis. Electronically Signed: Duran Steven MD at 13:07 EST Tel [phone], Service support , Chest X-Ray 04/29/17 10:00 IMPRESSION: Status post left thoracentesis. There is no evidence of pneumothorax. Electronically Signed: Duran Steven MD at 13:36 EST Tel [phone], Service support , Chest X-Ray 04/29/17 10:00 IMPRESSION: Status post left thoracentesis. There is no evidence of pneumothorax. Electronically Signed: Duran Steven MD at 13:06 EST Tel [phone], Service support , Vesta Quintero, Shlomo Campbell, Shawn Boone Operations: - - Laparoscopic right hemicolectomy. Procedures: 2-D Echocardiogram - Mild global left ventricular systolic dysfunction. The estimated ejection fraction is 47 %. The left atrium is mildly enlarged. The right atrium is mildly enlarged. Mild (1+) eccentric mitral valve insufficiency. Mild to moderate (1-2+) tricuspid valve insufficiency. Moderate pulmonary hypertension. Small pericardial effusion. There are no echocardiographic indications of cardiac tamponade. Summary of Care Provided: The patient is a 66 year old F is with shortness of breath and chest pain. Patient was found to have a hemoglobin of 3.2. Patient was transfused 5 units of packed red blood cells. Hemoglobin improved and remained stable. Patient had a CT of the abdomen pelvis that showed diffuse heterogenous mass surrounding the cecum. Patient underwent a right hemicolectomy by Dr. Quintero on the . Patient's hemoglobin has remained stable here. He did have shortness of breath and had a BNP of 3463. Echocardiogram showed an ejection fraction of 47%. Chest x-ray showed small bilateral pleural effusions. Patient did undergo a thoracentesis on the where they removed 320 cc of fluid. The fluid was transudate of. Due to the patient's underlying heart failure. Patient had heart failure likely due to high output given patient's severe anemia. Patient has been seen by cardiology and is on medical treatment for her heart. Patient will follow up with cardiology as outpatient. [] Discharge Diet: No Restrictions - encourage drink plenty of fluids Discharge Activity: Return to Normal Activity Call your doctor if your incision/area has: Continuous Slow Oozing, Sudden Increased Bleeding, Foul Smelling Discharge Call your doctor if you observe: Fever of 101 or Higher Additional Dressing/Incision Instructions:: Leave dressings in place. May get wet in shower - do not scrub at sites. Do not soak - no tub baths/swimming Home Medications: Medications to take at Discharge Acetaminophen [Tylenol Tablet] 650 mg PO Q6H PRN PRN tablet 05/06/17 Bisacodyl [Dulcolax] 10 mg PO DAILY PRN PRN tablet 05/06/17 Carvedilol [Coreg (Beta Salomon)] 3.125 mg PO BID tablet 05/06/17 Famotidine [Pepcid] 40 mg PO DAILY tablet 05/06/17 Ferrous Sulfate 325 mg PO BIDCM tablet 05/06/17 Furosemide [Lasix] 40 mg PO DAILY tablet 05/06/17 Lisinopril [Zestril] 5 mg PO BID tablet 05/06/17 Magnesium Hydroxide [Milk Of Magnesia] 30 ml PO DAILY PRN PRN udc 05/06/17 Polyethylene Glycol 3350 [Miralax] 17 gm PO DAILY packet 05/06/17 Sertraline HCl [Zoloft] 50 mg PO DAILY tablet 05/06/17 Primary Care Physician: NOT,DEFINED [NON-STAFF] - Please Follow Up With: Vesta Quintero MD - call When: in 1-2 weeks, please call for date and time Please Follow Up With: Shlomo Campbell MD When: 2-4 weeks Disposition: [facility] facility Minutes spent on discharge:: 40 Patient Condition:: Fair Meaningful Use Info Meaningful Use Diagnoses (Choose all that apply): CHF - CHF JEEVAN/ARB ordered at discharge?: Yes Documented LVEF (%): 47 Code Visit Inpatient E&M: 97119 Disch Hosp
--- NOTE | 2017-05-06 13:30 | CASEMGMT ---
Patient ready for d/c. JOAO faxed orders to [facility]. Convalescent and level of care completed. [facility] get [facility] at via [facility]. JOAO notified RN and patient. JOAO also called patient's sister to let her know. JOAO left a message for Luzma at [facility]. All in agreement with d/c plan. Plan: d/c to [facility] under intermediate level of care on a convalescent and pending Medicaid. Pending Medicaid # is [id number]. [facility] transported her via [facility]. Rosi [employer] CONSULTANT
[2017-05-06 14:10] VITALS: BP 109/56; PULSE 80; RESP 18; TEMP 36.8; O2SAT 97
--- NOTE | 2017-05-06 15:12 | NURSING ---
Called report to Monique Hampton RN at this time.
== END 2017-05-06 15:09 | disposition intermediate care facility (04) | DRG 329 ==
LOC: ED 05:41 → ICU 06:45 → PCU 04-26 14:38
PROVIDERS: Family Medicine; Internal Medicine; Internal Medicine Critical Care Medicine; Surgery; Admitting Provider Internal Medicine; Emergency Provider Emergency Medicine
PROC: 0DJD8ZZ Inspection of Lower Intestinal Tract, Via Natural or Artificial Opening Endoscopic (ICD-10-PCS; CPT 45378; principal; 2017-04-28 11:55)
PROC: 0DTF4ZZ Resection of Right Large Intestine, Percutaneous Endoscopic Approach (ICD-10-PCS; CPT 44205; principal; 2017-05-02 09:40)
DX: C18.2 Malignant neoplasm of ascending colon (principal); I50.23 Acute on chronic systolic (congestive) heart failure; E46 Unspecified protein-calorie malnutrition; J91.8 Pleural effusion in other conditions classified elsewhere; I27.20 Pulmonary hypertension, unspecified; D68.9 Coagulation defect, unspecified; I08.1 Rheumatic disorders of both mitral and tricuspid valves; I42.9 Cardiomyopathy, unspecified; D50.9 Iron deficiency anemia, unspecified; Z68.22 Body mass index [BMI] 22.0-22.9, adult; R79.89 Other specified abnormal findings of blood chemistry
CPT/HCPCS: 32555; 36415; 71045; 71260; 74177; 80048; 80053; 80061; 81001; 82040; 82274; 82378; 82607; 82728; 82746; 82945; 83540; 83550; 83615; 83735; 83880; 83986; 84100; 84156; 84157; 84439; 84443; 84484; 85014; 85018; 85025; 85027; 85610; 85730; 86850; 86900; 86920; 86922; 87070; 87075; 87205; 87449; 87641; 88108; 88305; 88307; 88309; 88313; 88341; 88342; 89050; 93005; 93306; 97110; 97116; 97166; 97530; 99285; J7050; P9016; Q9967; A4216; J1940; J2405

== ENCOUNTER 2017-06-02 09:08 | Day surgery (SDC) | payer MEDICAID, SELFPAY ==
[2017-06-02] VITALS (9 sets, daily range): BP systolic 114–131; BP diastolic 62–72; PULSE 75–85; RESP 14–16; TEMP 36.9–37.7; O2SAT 93–98; BMI 20.5
[2017-06-02] MEDS: Cefazolin 2 GM in 0.9% Normal Saline 100 ML IV (11:38)
--- NOTE | 2017-06-02 11:45 | OP.PN_ITS ---
Immediate Post-Op Note Date of Procedure: 06/02/17 Primary Surgeon/Physician: Vesta Quintero motorcycle police officer: NOT,DEFINED Pre-Operative Diagnosis: colon cancer with lymph node metastases Post-Operative Diagnosis: same Surgery/Procedure Performed:: placement of permanent indwelling tunnelled catheter in right internal jugular vein with subcutaneous port Description of Surgical Findings:: normal right internal jugular vein anatomy to SVC Estimated Blood Loss: < 5 ml Specimen's removed: none Type of Anesthesia:: Local MAC ASA Class: ASA2 Mod Systematic Disease - Admit VTE Documentation VTE Present on Admission: Yes VTE Mechan Device Prophylaxis: SCD's
--- NOTE | 2017-06-02 11:45 | PCM.DC.POR ---
Discharge Diet: No Restrictions Discharge Activity: Return to Normal Activity, May not drive while taking narcotic pain medications. Call your doctor if your incision/area has: Continuous Slow Oozing, Foul Smelling Discharge Call your doctor if you observe: Fever of 101 or Higher Additional Dressing/Incision Instructions:: Leave dressing in place. May get wet in shower. Do not soak - no tub baths/swimming Allergies/Adverse Reactions: Allergies No Known Allergies Allergy (Verified 05/31/17 09:21) Medications to take at Discharge Acetaminophen [Tylenol Tablet] 650 mg PO Q6H PRN PRN tablet 05/06/17 Bisacodyl [Dulcolax] 10 mg PO DAILY PRN PRN tablet 05/06/17 Carvedilol [Coreg (Beta Salomon)] 3.125 mg PO BID tablet 05/06/17 Famotidine [Pepcid] 40 mg PO DAILY tablet 05/06/17 Ferrous Sulfate 325 mg PO BIDCM tablet 05/06/17 Furosemide [Lasix] 40 mg PO DAILY tablet 05/06/17 Lisinopril [Zestril] 5 mg PO BID tablet 05/06/17 Magnesium Hydroxide [Milk Of Magnesia] 30 ml PO DAILY PRN PRN udc 05/06/17 Polyethylene Glycol 3350 [Miralax] 17 gm PO DAILY packet 05/06/17 Sertraline HCl [Zoloft] 50 mg PO DAILY tablet 05/06/17 Acetaminophen/Codeine #3 [Tylenol#3] 1 tab PO Q6H PRN PRN 7 Days #10 tab 06/02/17 The following prescriptions were given: Acetaminophen/Codeine #3 [Tylenol#3] 1 tab PO Q6H PRN PRN 7 Days #10 tab PRN Reason: Mod-Severe Pain (-01/18) Primary Care Physician: Galina Macdonald [Primary Care Provider] - Please Follow Up With: Vesta Quintero MD - call When: to be seen in 1-2 weeks, please call for date and time, thank you
--- NOTE | 2017-06-02 12:28 | PCM.OPRPT ---
Report of Operation Date of Procedure: 06/02/17 Pre-Operative Diagnosis: colon cancer with lymph node metastases Post-Operative Diagnosis: same Surgery/Procedure Performed:: placement of permanent indwelling tunnelled catheter in right internal jugular vein with subcutaneous port Description of Surgical Findings:: normal right internal jugular vein anatomy to SVC transition teacher: NOT,DEFINED Type of Anesthesia:: Local MAC Anesthesiologist: Mehrdad Sumner Specimen's removed: none Estimated Blood Loss (mL): < 5 ml Fluids Replaced: 700 ml RL Description of Procedure: After informed consent was given, the patient was brought to the operating room and placed in the supine position. Appropriate time out protocol was followed. She was then given IV conscious sedation for anesthesia. The patients upper chest and neck were then prepped with a surgical skin preparation and sterile surgical drapes were placed. After proper landmarks were ascertained, the skin at the upper left chest area was then infiltrated with 1% xylocaine with epinephrine. The US transducer was brought into the operative field. It was placed on the right neck area to identify the vascular structures. The right internal jugular vein was identified and the right carotid was identified. A needle trocar was then inserted into the right internal jugular vein and this was visualized under US guidance. There was good aspiration of venous blood. A wire was then threaded into the needle trocar and this was visualized under fluoroscopy to ensure that the wire was in the right internal jugular vein. It was then advanced into the SVC. Once this was done, then the needle trocar was removed. A small skin umer was made with an 11 blade knife at the wire entrance site. The dilator with the introducer sheath attached was then placed over the wire into the right internal jugular vein via the Seldinger technique and this was visualized under fluoroscopy. The dilator and sheath were in proper position as visualized by fluoroscopy. The wire and dilator were then removed. The catheter was then threaded into the introducer sheath and was positioned with its tip at the junction of the superior vena cava and the right atrium as visualized under fluoroscopy. The catheter was flushed with a heparin saline mixture prior to placement. A subcutaneous pocket was then created caudad to the catheter insertion site. A transverse skin incision was made after the skin and subcutaneous tissues were infiltrated with local anesthetic. Blunt dissection was then used to create a space large enough for placement of the subcutaneous port. Hemostasis was carefully controlled with electrocautery. The port was sutured to the subcutaneous fascia using vicryl suture at three sites. The catheter was then tunneled into the subcutaneous pocket. The excess catheter was transected. The catheter was then attached to the subcutaneous port using manufacturers guidelines. The port was then placed in the subcutaneous pocket and the sutures were ligated. The subdermal incisional sites were reapproximated with interrupted vicryl suture. The skin was reapproximated with monocryl suture in a subcuticular fashion. Cavilon and steristrips were used for reinforcement of the skin closure and a sterile opsite dressing was applied. The patient tolerated the procedure well. Grafts/Implants Used: PowerPort Lot [id number] - Complications none noted - Admit VTE Documentation VTE Present on Admission: Yes VTE Mechan Device Prophylaxis: SCD's
--- NOTE | 2017-06-02 12:33 | OP.PCM_ITS ---
Report of Operation Date of Procedure: 06/02/17 Pre-Operative Diagnosis: colon cancer with lymph node metastases Post-Operative Diagnosis: same Surgery/Procedure Performed:: placement of permanent indwelling tunnelled catheter in right internal jugular vein with subcutaneous port Description of Surgical Findings:: normal right internal jugular vein anatomy to SVC shingle inspector: NOT,DEFINED Type of Anesthesia:: Local MAC Anesthesiologist: Mehrdad Sumner Specimen's removed: none Estimated Blood Loss (mL): < 5 ml Fluids Replaced: 700 ml RL Description of Procedure: After informed consent was given, the patient was brought to the operating room and placed in the supine position. Appropriate time out protocol was followed. She was then given IV conscious sedation for anesthesia. The patient?s upper chest and neck were then prepped with a surgical skin preparation and sterile surgical drapes were placed. After proper landmarks were ascertained, the skin at the upper left chest area was then infiltrated with 1% xylocaine with epinephrine. The US transducer was brought into the operative field. It was placed on the right neck area to identify the vascular structures. The right internal jugular vein was identified and the right carotid was identified. A needle trocar was then inserted into the right internal jugular vein and this was visualized under US guidance. There was good aspiration of venous blood. A wire was then threaded into the needle trocar and this was visualized under fluoroscopy to ensure that the wire was in the right internal jugular vein. It was then advanced into the SVC. Once this was done, then the needle trocar was removed. A small skin umer was made with an 11 blade knife at the wire entrance site. The dilator with the introducer sheath attached was then placed over the wire into the right internal jugular vein via the Seldinger technique and this was visualized under fluoroscopy. The dilator and sheath were in proper position as visualized by fluoroscopy. The wire and dilator were then removed. The catheter was then threaded into the introducer sheath and was positioned with its tip at the junction of the superior vena cava and the right atrium as visualized under fluoroscopy. The catheter was flushed with a heparin saline mixture prior to placement. A subcutaneous pocket was then created caudad to the catheter insertion site. A transverse skin incision was made after the skin and subcutaneous tissues were infiltrated with local anesthetic. Blunt dissection was then used to create a space large enough for placement of the subcutaneous port. Hemostasis was carefully controlled with electrocautery. The port was sutured to the subcutaneous fascia using vicryl suture at three sites. The catheter was then tunneled into the subcutaneous pocket. The excess catheter was transected. The catheter was then attached to the subcutaneous port using employment clerk?s guidelines. The port was then placed in the subcutaneous pocket and the sutures were ligated. The subdermal incisional sites were reapproximated with interrupted vicryl suture. The skin was reapproximated with monocryl suture in a subcuticular fashion. Cavilon and steristrips were used for reinforcement of the skin closure and a sterile opsite dressing was applied. The patient tolerated the procedure well. Grafts/Implants Used: PowerPort Lot [id number] - Complications none noted - Admit VTE Documentation VTE Present on Admission: Yes VTE Mechan Device Prophylaxis: SCD's
--- NOTE | 2017-06-02 13:20 | RAD_ITS ---
STUDY: X-RAY CHEST REASON FOR EXAM: Female, 66 years old. Port placement. TECHNIQUE: Single AP portable view of the chest. COMPARISON: Comparison is made with prior study dated April 29, 2017. FINDINGS: A right-sided portacatheter has been placed. The tip of the catheter is in the right atrium. Hyperinflation. The lungs are clear. There is no demonstrated pleural abnormality. Normal size heart. Normal mediastinum and paulette. Normal visualized pulmonary arteries. Normal visualized aortic arch and descending thoracic aorta. Normal visualized thoracic spine. Normal visualized ribs, clavicles, and shoulders. There is no demonstrated abnormality of the visualized soft tissue structures of the upper abdomen. RAD/CXR for Line Placement IMPRESSION: The tip of the catheter is in the right atrium. Electronically Signed: Duran Steven MD at 13:48 EST Tel [phone], Service support ,
== END 2017-06-02 15:15 | disposition home or self-care (01) ==
LOC: SDC 09:10 → AC 11:45
PROVIDERS: Family Provider Student in an Organized Health Care Education/Training Program; PCP Student in an Organized Health Care Education/Training Program; Visit Provider Surgery
PROC: (CPT 36561; principal; 2017-06-02 10:45)
DX: Z45.2 Encounter for adjustment and management of vascular access device (principal); C18.2 Malignant neoplasm of ascending colon; C77.9 Secondary and unspecified malignant neoplasm of lymph node, unspecified; I11.0 Hypertensive heart disease with heart failure; I50.9 Heart failure, unspecified; I27.20 Pulmonary hypertension, unspecified; I25.10 Atherosclerotic heart disease of native coronary artery without angina pectoris; D64.9 Anemia, unspecified; K21.9 Gastro-esophageal reflux disease without esophagitis; F32.9 Major depressive disorder, single episode, unspecified; F41.9 Anxiety disorder, unspecified; Z78.0 Asymptomatic menopausal state; Z79.899 Other long term (current) drug therapy; Z90.49 Acquired absence of other specified parts of digestive tract
CPT/HCPCS: 00532; 36561; 71045; 77001; J7050; J7120; C1788

== ENCOUNTER → 2017-07-19 06:24 | Outpatient (CLI) | payer MEDICAID, SELFPAY ==
--- NOTE | 2017-07-19 16:44 | STRESSREP ---
Stress Test Report Pharmacologic myocardial perfusion stress test. 67-year-old lady with a history of cardiomyopathy. Stress protocol: Resting EKG demonstrates sinus bradycardia with a rate of 60 bpm occasional premature ventricular complex noted resting blood pressure is 150/80 mmHg. 0.4 mg of regadenoson was infused per usual protocol followed by rapid intravenous saline flush injection continuous EKG monitoring was performed. The maximum heart rate attained was 98 bpm which was 64% of maximum predicted heart rate the maximum workload attained was 1 metabolic equivalent. Resting blood pressure is 150/80 and remained throughout the infusion. At rest and during infusion there were no ST or T-wave changes noted to suggest abnormal flow reserve. Myocardial perfusion protocol. 11.2 mCi of technetium 99m sestamibi was injected at rest. 0.4 mg regadenoson was infused per usual protocol at peak infusion 33.6 mCi of technetium 99m sestamibi was injected stress images were obtained stress and rest images were reconstructed and compared in the short axis vertical long and horizontal long axis. Gated images were also obtained. Perfusion SPECT analysis: Review of the stress images demonstrate a mildly dilated cardiac silhouette size. There is uniform uptake of tracer noted in all areas of the myocardium the resting images similarly demonstrate uniform uptake of tracer noted in all areas of the myocardium. No areas of reversibility are noted suggest ischemia. Gated SPECT analysis. The gated ejection fraction by gated SPECT is 63%. Conclusion: Normal pharmacologic myocardial perfusion stress test. Preserved ejection fraction.
== END ==
PROVIDERS: Family Provider Student in an Organized Health Care Education/Training Program; PCP Student in an Organized Health Care Education/Training Program; Visit Provider Internal Medicine Cardiovascular Disease
DX: I42.9 Cardiomyopathy, unspecified (principal)
CPT/HCPCS: 78452; 93017; A9500; A4216; J2785

== ENCOUNTER 2017-08-17 19:36 | Inpatient (IN) | payer MEDICAID, SELFPAY ==
[2017-08-17 18:34] VITALS: BMI 21.0
[2017-08-17 18:42] VITALS: BMI 21.0
[2017-08-17 19:25] VITALS: BP 116/81; PULSE 89; RESP 16; TEMP 36.6; O2SAT 98
--- NOTE | 2017-08-17 19:31 | PCM.HP.BLA ---
History and Physical Date of Admission: 08/17/17 Chief Complaint: abdominal pain, diarrhea, nausea/emesis History of Present Illness: 67 y/o WF presents with abdominal pain, diarrhea, nausea/emesis. Has had this since Tuesday. Last had chemotherapy dose last Tuesday. On chemotherapy for right colon cancer 05/02/17 - s/p laparoscopic right hemicolectomy - stage III Presented to ED at [facility] and noted to have pneumatosis coli and small focal area of free air around the bowel. Past Medical History: congestive heart failure cardiomegaly elevated TSH with normal T4 cardiac valve disease history of right colon cancer hypertension Past Surgical History: excision of knot on neck at age 3 (thyroglossal duct cyst?) right finger traumatic amputation dental surgery 2002 laparoscopic right hemicolectomy Medications: carvedilol pepcid zestril zoloft Allergies: latex Social history: TOB use denies ETOH use denies Lives in [facility] Review of Systems: General - denies fevers Cardiovascular denies chest pain, denies history of heart attack Pulmonary denies shortness of breath, denies coughing up blood Gastrointestinal see HPI Neurological denies seizures, denies history of stroke Genitourinary denies burning with urination, denies blood in urine Hematological denies spontaneous/prolonged bleeding Skin denies open non healing wounds Musculoskeletal denies history of fractures Endocrine denies diabetes, denies thyroid problems Psychological agoraphobia, anxiety disorder Physical examination: Vital signs Temp 98.7 HR 83 RR 16 General WD/WN WF in no apparent distress, alert and oriented HEENT Normocephalic. EOM intact with sclera clear and no icterus noted. Neck is supple with no jugular venous distention noted. Trachea is midline. Lungs clear to auscultation, normal breath sounds. No rales/rhonchi/wheezing noted. No labored breathing noted, such as retractions. Heart normal S1 and S2 auscultated. No rubs/clicks/murmurs noted. . Abdomen soft with generalized tenderness but no peritoneal signs Extremities no calf tenderness noted. No pitting edema noted. bilateral lower extremity dependent swelling Genitourinary/Rectal deferred Skin normal skin integrity. Neurological non focal. Psychological flat affect, patient is calm and appropriate Impression: pneumatosis coli, localized perforation of bowel Discussion/Plan: I have discussed the above with the patient. Admit IV hydration bowel rest - sips of clear liquids ok check labs IV antibiotics - treat as localized perforation careful observation check diarrhea - c diff I have answered all questions to the patients satisfaction and the patient has no further questions.
--- NOTE | 2017-08-17 19:48 | HP.PCM_ITS ---
History and Physical Date of Admission: 08/17/17 Chief Complaint: abdominal pain, diarrhea, nausea/emesis History of Present Illness: 67 y/o WF presents with abdominal pain, diarrhea, nausea/emesis. Has had this since Tuesday. Last had chemotherapy dose last Tuesday. On chemotherapy for right colon cancer 05/02/17 - s/p laparoscopic right hemicolectomy - stage III Presented to ED at [facility] and noted to have pneumatosis coli and small focal area of free air around the bowel. Past Medical History: congestive heart failure cardiomegaly elevated TSH with normal T4 cardiac valve disease history of right colon cancer hypertension Past Surgical History: excision of knot on neck at age 3 (thyroglossal duct cyst?) right finger traumatic amputation dental surgery 2002 laparoscopic right hemicolectomy Medications: carvedilol pepcid zestril zoloft Allergies: latex Social history: TOB use denies ETOH use denies Lives in assisted Review of Systems: General - denies fevers Cardiovascular denies chest pain, denies history of heart attack Pulmonary denies shortness of breath, denies coughing up blood Gastrointestinal see HPI Neurological denies seizures, denies history of stroke Genitourinary denies burning with urination, denies blood in urine Hematological denies spontaneous/prolonged bleeding Skin denies open non healing wounds Musculoskeletal denies history of fractures Endocrine denies diabetes, denies thyroid problems Psychological agoraphobia, anxiety disorder Physical examination: Vital signs Temp 98.7 HR 83 RR 16 General WD/WN WF in no apparent distress, alert and oriented HEENT Normocephalic. EOM intact with sclera clear and no icterus noted. Neck is supple with no jugular venous distention noted. Trachea is midline. Lungs clear to auscultation, normal breath sounds. No rales/rhonchi/ wheezing noted. No labored breathing noted, such as retractions. Heart normal S1 and S2 auscultated. No rubs/clicks/murmurs noted. . Abdomen soft with generalized tenderness but no peritoneal signs Extremities no calf tenderness noted. No pitting edema noted. bilateral lower extremity dependent swelling Genitourinary/Rectal deferred Skin normal skin integrity. Neurological non focal. Psychological flat affect, patient is calm and appropriate Impression: pneumatosis coli, localized perforation of bowel Discussion/Plan: I have discussed the above with the patient. Admit IV hydration bowel rest - sips of clear liquids ok check labs IV antibiotics - treat as localized perforation careful observation check diarrhea - c diff I have answered all questions to the patients satisfaction and the patient has no further questions.
[2017-08-17 20:49] LABS: Absolute Lymphocyte Count 0.43 X10^3/ul (0.83-4.51); Absolute Neutrophil Count 2.2 X10^3/uL (2.0-7.7); Eosinophil# 0.02 X10^3/uL; Eosinophils% 0.7 % (0-5); Hematocrit 31.6 % (37-47); Hemoglobin 10.4 g/dl (12.0-15.0); Lymphocyte # 0.43 X10^3/ul (4.0); Lymphocyte % 14.4 % (19-41); Mean Corp Hgb Conc 32.9 g/gl (32-36); Mean Corpuscular Hgb 32.3 pg (27.0-32.0); Mean Corpuscular Volume 98.1 fL (81-99); Mean Platelet Vol. 10.9 fl (6.2-12.0); Monocyte# 0.38 X10^3/uL; Monocyte% 12.7 % (0-10); Neutrophil # 2.16 X10^3/uL (2.7-7.7); Neutrophil % 72.2 % (47-70); Platelet Count 133 K/mm3 (150-450); RBC Distribution Width SD 75.8 fl (35.1-43.9); Red Blood Count 3.22 M/mm3 (4.2-5.4)
[2017-08-17 20:50] LABS: Differential Indicated SCAN CRITERIA MET; POSITIVE COUNT NO; POSITIVE DIFFERENTIAL YES; POSITIVE MORPHOLOGY YES
[2017-08-17 20:58] LABS: BUN 20 mg/dL (7-18); Creatinine, Serum 0.96 mg/dL (0.55-1.02); EST Glomerular Filtration Rate 61 mL/min (>60); Glucose 94 mg/dL (74-106)
[2017-08-17 20:59] LABS: Anion Gap 7 (5-15); BUN/Creat Ratio 20.8 RATIO (10-20); Calcium,Total 8.3 mg/dL (8.5-10.1); Chloride 111 mmol/L (98-107); Est Glom Filt Rate - Afr Amer 74 mL/min (>60); Sodium Level 142 mmol/L (136-145)
[2017-08-17 21:04] LABS: Magnesium 2.4 mg/dL (1.6-2.6)
[2017-08-17 21:08] LABS: Lactic Acid 0.7 mmol/L (0.4-2.0)
[2017-08-17 21:12] LABS: Differential Comment SCANNED
--- NOTE | 2017-08-17 21:50 | NURSING ---
Nursing Delicatessen Clerk was called to access pt's port.
[2017-08-17 21:52] VITALS: BP 110/67; PULSE 75; RESP 18; TEMP 36.7; O2SAT 94
--- NOTE | 2017-08-17 22:02 | NURSING ---
Port accessed by Nursing Various Exceptionalities Teacher, HUSSAIN Chand.
[2017-08-17] MEDS: 0.9% NaCl Peripheral Flush Adult/Peds IV (22:17)
[2017-08-17] MEDS: Carvedilol 3.125 MG TABLET PO (22:17)
[2017-08-17] MEDS: Lisinopril 5 MG Tablet PO (22:17)
[2017-08-18] MEDS: Lactated Ringers 1,000 ML 125 ML IV ×2 (00:08→08:48)
[2017-08-18] MEDS: Piperacil/Tazobactam 3.375 GM/50 ML ML IV ×4 (00:09→23:05)
[2017-08-18] MEDS: 0.9% NaCl Peripheral Flush Adult/Peds IV ×2 (00:17→05:53)
[2017-08-18 03:52] VITALS: BP 115/78; PULSE 75; RESP 18; TEMP 36.6; O2SAT 97
[2017-08-18 06:22] LABS: Potassium 2.8 mmol/L (3.5-5.1)
--- NOTE | 2017-08-18 06:38 | PCM.PN.SRG ---
Subjective: complaint that clear liquids tastes terrible, asked if she still had diarrhea - states that how can I have a bowel movement if I can't eat, states that she has fecal urgency states that she has less abdominal pain - Physical Exam General: Alert, Oriented x3 Oral: - - less tacky but still dry Neck: Supple Abdomen: Bowel Sounds Present, Soft - much less tender that last night Vital Signs Temp Pulse Resp BP Pulse Ox 97.9 F 75 18 115/78 97 08/18/17 03:52 08/18/17 03:52 08/18/17 03:52 08/18/17 03:52 08/18/17 03:52 Oxygen Delivery Method Room Air Weight: 55.7 kg Body Mass Index (BMI) 21.0 Intake and Output for Last 24 Hours 08/16/17 08/17/17 08/18/17 23:59 23:59 23:59 Intake Total 850.8 / 850.8 Balance 850.8 / 850.8 Laboratory Tests Past 24 Hrs 08/17/17 08/17/17 08/17/17 20:21 20:21 20:31 WBC 3.0 L RBC 3.22 L Hgb 10.4 L Hct 31.6 L MCV 98.1 MCH 32.3 H MCHC 32.9 RDW 21.0 H RDW Differential 75.8 H Plt Count 133 L MPV 10.9 Immature Gran % (Auto) 0.000 Neut % (Auto) 72.2 H Lymph % (Auto) 14.4 L [place] % (Auto) 12.7 H Eos % (Auto) 0.7 Baso % (Auto) 0.0 Absolute Neuts (auto) 2.2 Absolute Lymphs (auto) 0.43 L Total Counted Not Reportable Differential Comment SCANNED Sodium 142 Potassium 3.0 L Chloride 111 H Carbon Dioxide 24.0 Anion Gap 7 BUN 20 H Creatinine 0.96 Estim Creat Clear Calc 49.10 Est GFR (MDRD) Af Amer 74 Est GFR (MDRD) Non-Af 61 BUN/Creatinine Ratio 20.8 H Glucose 94 Lactic Acid Calcium 8.3 L Magnesium 2.4 08/17/17 08/18/17 20:31 05:30 WBC RBC Hgb Hct MCV MCH MCHC RDW RDW Differential Plt Count MPV Immature Gran % (Auto) Neut % (Auto) Lymph % (Auto) [place] % (Auto) Eos % (Auto) Baso % (Auto) Absolute Neuts (auto) Absolute Lymphs (auto) Total Counted Differential Comment Sodium Potassium 2.8 L Chloride Carbon Dioxide Anion Gap BUN Creatinine Estim Creat Clear Calc Est GFR (MDRD) Af Amer Est GFR (MDRD) Non-Af BUN/Creatinine Ratio Glucose Lactic Acid 0.7 Calcium Magnesium Medical Necessity - Tobacco Use Smoking Status: Never smoker Assessment/Plan Impression: pneumatosis coli severe diarrhea due to chemotherapy abdominal pain- resolving localized perforation Discussion/Plan: patient clinically improved continue IV antibiotics continue bowel rest corrupted disk from [facility] regarding CT scan - tried to get it to work (to be able to be read in radiology) numerous times last night but unsuccessful, may need to repeat CT scan here potassium supplementation for K of 3
--- NOTE | 2017-08-18 06:42 | PN.SURG_ITS ---
Subjective: complaint that clear liquids tastes terrible, asked if she still had diarrhea - states that how can I have a bowel movement if I can't eat, states that she has fecal urgency states that she has less abdominal pain - Physical Exam General: Alert, Oriented x3 Oral: - - less tacky but still dry Neck: Supple Abdomen: Bowel Sounds Present, Soft - much less tender that last night Vital Signs Temp Pulse Resp BP Pulse Ox 97.9 F 75 18 115/78 97 08/18/17 03:52 08/18/17 03:52 08/18/17 03:52 08/18/17 03:52 08/18/17 03:52 Oxygen Delivery Method Room Air Weight: 55.7 kg Body Mass Index (BMI) 21.0 Intake and Output for Last 24 Hours 08/16/17 08/17/17 08/18/17 23:59 23:59 23:59 Intake Total 850.8 / 850.8 Balance 850.8 / 850.8 Laboratory Tests Past 24 Hrs 08/17/17 08/17/17 08/17/17 20:21 20:21 20:31 WBC 3.0 L RBC 3.22 L Hgb 10.4 L Hct 31.6 L MCV 98.1 MCH 32.3 H MCHC 32.9 RDW 21.0 H RDW Differential 75.8 H Plt Count 133 L MPV 10.9 Immature Gran % (Auto) 0.000 Neut % (Auto) 72.2 H Lymph % (Auto) 14.4 L [place] % (Auto) 12.7 H Eos % (Auto) 0.7 Baso % (Auto) 0.0 Absolute Neuts (auto) 2.2 Absolute Lymphs (auto) 0.43 L Total Counted Not Reportable Differential Comment SCANNED Sodium 142 Potassium 3.0 L Chloride 111 H Carbon Dioxide 24.0 Anion Gap 7 BUN 20 H Creatinine 0.96 Estim Creat Clear Calc 49.10 Est GFR (MDRD) Af Amer 74 Est GFR (MDRD) Non-Af 61 BUN/Creatinine Ratio 20.8 H Glucose 94 Lactic Acid Calcium 8.3 L Magnesium 2.4 08/17/17 08/18/17 20:31 05:30 WBC RBC Hgb Hct MCV MCH MCHC RDW RDW Differential Plt Count MPV Immature Gran % (Auto) Neut % (Auto) Lymph % (Auto) [place] % (Auto) Eos % (Auto) Baso % (Auto) Absolute Neuts (auto) Absolute Lymphs (auto) Total Counted Differential Comment Sodium Potassium 2.8 L Chloride Carbon Dioxide Anion Gap BUN Creatinine Estim Creat Clear Calc Est GFR (MDRD) Af Amer Est GFR (MDRD) Non-Af BUN/Creatinine Ratio Glucose Lactic Acid 0.7 Calcium Magnesium Medical Necessity - Tobacco Use Smoking Status: Never smoker Assessment/Plan Impression: pneumatosis coli severe diarrhea due to chemotherapy abdominal pain- resolving localized perforation Discussion/Plan: patient clinically improved continue IV antibiotics continue bowel rest corrupted disk from [facility] regarding CT scan - tried to get it to work ( to be able to be read in radiology) numerous times last night but unsuccessful, may need to repeat CT scan here potassium supplementation for K of 3
--- NOTE | 2017-08-18 08:41 | PCM.CONS.B ---
Problem List (1) Congestive heart failure (CHF) Status: Chronic Qualifiers: Heart failure type: systolic Heart failure chronicity: chronic Qualified Code(s): I50.22 - Chronic systolic (congestive) heart failure (2) Cardiomyopathy Status: Chronic Qualifiers: Cardiomyopathy type: unspecified Qualified Code(s): I42.9 - Cardiomyopathy, unspecified (3) Diarrhea Status: Acute Qualifiers: Diarrhea type: presumed infectious Qualified Code(s): R19.7 - Diarrhea, unspecified Comment: Secondary to chemotherapy (4) Colon cancer Status: Chronic Qualifiers: Colon location: ascending Qualified Code(s): C18.2 - Malignant neoplasm of ascending colon (5) Perforation bowel Status: Acute Comment: Microperforation (6) Hypokalemia, gastrointestinal losses Status: Acute Comment: secondary to chemotherapy - Consult Date of Consult: 08/18/17 The patient was seen in request of Dr. Quintero for neutropenia and diarrhea after chemotherapy. History of colon cancer receiving adjuvant FOLFOX & cardiomyopathy. My final recommendations will be communicated to Dr. Quintero and also by electronic medical records. - Reason for Consult Neutropenia & diarrhea after chemotherapy History of colon cancer Perforation of bowel History and Physical Date of Admission: 08/17/17 History of Present Illness: 67 y/o WF presents with abdominal pain, diarrhea, nausea/emesis x 3 days since Tuesday. History of stage III colon cancer of right colon cancer 05/02/17 - s/p laparoscopic right hemicolectomy, started adjuvant chemotherapy in 2017 with FOLFOX. She had mild- moderate diarrhea (3-5x daily), she did well with her chemotherapy until the last week. Home has call me in the office yesterday with patient experiencing 6 pound weight loss since last week, with increased nausea, vomiting, abdominal cramps and watery diarrhea. I instructed her to go to the emergency room for further evaluation. Presented to ED at [facility] and noted to have pneumatosis coli and small focal area of free air around the bowel. Potassium was low at 2.6 present with moderate anemia & leukopenia. He was transferred to [facility] further surgical evaluation. Patient was started on Zosyn and Flagyl & C difficile toxin still pending. Blood cultures were obtained at [facility] & also on admission here. Multiple K- rider given for treatment of hypokalemia. She has no abdominal cramps this morning and denies nausea or vomitting on clear liquid diet, She still has watery diarrhea. No fever, or urinary symptoms. No Chest pain, cough or shortness of breath. Some substernal pain & gastric pain today. Past Medical History: congestive heart failure cardiomegaly elevated TSH with normal T4 Rheumatic Heart valvular disease history of right colon cancer hypertension Past Surgical History: excision of knot on neck at age 3 (thyroglossal duct cyst?) right finger traumatic amputation dental surgery 2003 laparoscopic right hemicolectomy Medications: carvedilol pepcid zestril zoloft Allergies: latex Social history: TOB use denies ETOH use denies Lives in halfway Review of Systems: General - denies fevers Cardiovascular denies chest pain, denies history of heart attack Pulmonary denies shortness of breath, denies coughing up blood Gastrointestinal see HPI Neurological denies seizures, denies history of stroke Genitourinary denies burning with urination, denies blood in urine Hematological denies spontaneous/prolonged bleeding Skin denies open non healing wounds Musculoskeletal denies history of fractures Endocrine denies diabetes, denies thyroid problems Psychological agoraphobia, anxiety disorder Vital Signs - 24 hr Temp Pulse Resp BP Pulse Ox 08/18/17 03:52 97.9 F 75 18 115/78 97 08/17/17 21:52 98.1 F 75 18 110/67 94 08/17/17 19:25 97.9 F 89 16 116/81 H 98 Physical examination: General WD/WN WF in no apparent distress, alert and oriented HEENT Normocephalic. EOM intact with sclera clear and no icterus noted. Neck is supple with no jugular venous distention noted. Trachea is midline. Lungs clear to auscultation, normal breath sounds. No rales/rhonchi/wheezing noted. No labored breathing noted, such as retractions. Heart normal S1 and S2 auscultated. No rubs/clicks/ + systolic and diastolic murmurs noted. . Abdomen soft with mild tenderness but no peritoneal signs, no guarding or rebound tenderness bowel sounds. Extremities no calf tenderness noted. No pitting edema noted. bilateral lower extremity dependent swelling Genitourinary/Rectal deferred Skin normal skin integrity. Neurological non focal. Psychological flat affect, patient is calm and appropriate Laboratory Results - last 24 hr 05/12/2708/17/17 08/17/17 20:21 20:21 20:31 WBC 3.0 L RBC 3.22 L Hgb 10.4 L Hct 31.6 L MCV 98.1 MCH 32.3 H MCHC 32.9 RDW 21.0 H RDW Differential 75.8 H Plt Count 133 L MPV 10.9 Immature Gran % (Auto) 0.000 Neut % (Auto) 72.2 H Lymph % (Auto) 14.4 L [place] % (Auto) 12.7 H Eos % (Auto) 0.7 Baso % (Auto) 0.0 Absolute Neuts (auto) 2.2 Absolute Lymphs (auto) 0.43 L Total Counted Not Reportable Differential Comment SCANNED Sodium 142 Potassium 3.0 L Chloride 111 H Carbon Dioxide 24.0 Anion Gap 7 BUN 20 H Creatinine 0.96 Estim Creat Clear Calc 49.10 Est GFR (MDRD) Af Amer 74 Est GFR (MDRD) Non-Af 61 BUN/Creatinine Ratio 20.8 H Glucose 94 Lactic Acid Calcium 8.3 L Magnesium 2.4 08/17/17 08/18/17 08/18/17 20:31 05:30 05:30 WBC 2.9 L RBC 2.80 L Hgb 9.1 L Hct 27.5 L MCV 98.2 MCH 32.5 H MCHC 33.1 RDW 21.1 H RDW Differential 76.7 H Plt Count 112 L MPV 10.5 Immature Gran % (Auto) 0.000 Neut % (Auto) 68.2 Lymph % (Auto) 16.6 L [place] % (Auto) 13.1 H Eos % (Auto) 1.4 Baso % (Auto) 0.7 Absolute Neuts (auto) 2.0 Absolute Lymphs (auto) 0.48 L Total Counted Differential Comment Sodium Potassium 2.8 L Chloride Carbon Dioxide Anion Gap BUN Creatinine Estim Creat Clear Calc Est GFR (MDRD) Af Amer Est GFR (MDRD) Non-Af BUN/Creatinine Ratio Glucose Lactic Acid 0.7 Calcium Magnesium Impression: Pancytopenia secondary chemotherapy & Sepsis pneumatosis coli, localized perforation of bowel- stable Hypokalemia secondary to decreased oral intake and increased diarrhea. History of stage III colon cancer Plan: -Agree with conservative treatment with IV antibiotic (Zosyn and Flagyl ) -C. difficile is pending -clear liquid diet and follow-up with surgery. -start Granix 380 mcg sq daily if ANC < 1000 -Lovenox 40 mg sq daily for DVT prophalaxis -Fluid to KVO & potassium with K rider ( keep K > 4.0 ) -Check potassium as needed every 6 hours. -Monitor CBC and BMP daily. cc: Dr. Vesta Quintero; Dr. Yana Israel
[2017-08-18 08:58] LABS: Absolute Lymphocyte Count 0.48 X10^3/ul (0.83-4.51); Basophil# 0.02 X10^3/uL; Basophil% 0.7 % (0-1); Eosinophil# 0.04 X10^3/uL; Eosinophils% 1.4 % (0-5); Hematocrit 27.5 % (37-47); Hemoglobin 9.1 g/dl (12.0-15.0); Lymphocyte # 0.48 X10^3/ul (4.0); Lymphocyte % 16.6 % (19-41); Mean Corp Hgb Conc 33.1 g/gl (32-36); Mean Corpuscular Hgb 32.5 pg (27.0-32.0); Mean Corpuscular Volume 98.2 fL (81-99); Mean Platelet Vol. 10.5 fl (6.2-12.0); Monocyte# 0.38 X10^3/uL; Monocyte% 13.1 % (0-10); Neutrophil # 1.97 X10^3/uL (2.7-7.7); Neutrophil % 68.2 % (47-70); Platelet Count 112 K/mm3 (150-450); RBC Distribution Width CV 21.1 % (11.6-14.6); RBC Distribution Width SD 76.7 fl (35.1-43.9); White Blood Count 2.9 K/mm3 (4.4-11.0)
[2017-08-18 08:59] LABS: Differential Indicated SCAN CRITERIA MET; POSITIVE COUNT NO; POSITIVE DIFFERENTIAL YES; POSITIVE MORPHOLOGY YES
[2017-08-18 09:02] LABS: ALB/GLOB Ratio 0.8 RATIO (0.9-2.4); AST(SGOT) 18 U/L (15-37); Alanine Aminotransfer ALT/SGPT 11 U/L (13-56); Albumin, Serum 2.4 g/dL (3.2-5.0); Alkaline Phosphatase 60 U/L (45-117); Anion Gap 7 (5-15); BUN 20 mg/dL (7-18); BUN/Creat Ratio 21.9 RATIO (10-20); Chloride 111 mmol/L (98-107); Creatinine, Serum 0.91 mg/dL (0.55-1.02); EST Glomerular Filtration Rate 65 mL/min (>60); Est Glom Filt Rate - Afr Amer 79 mL/min (>60); Globulin 3.2 g/dL (2.2-4.2); Glucose 88 mg/dL (74-106); Potassium 2.8 mmol/L (3.5-5.1); Protein, Total 5.6 g/dL (6.4-8.2); Sodium Level 142 mmol/L (136-145)
--- NOTE | 2017-08-18 09:05 | CON.PCM_ITS ---
Problem List (1) Congestive heart failure (CHF) Status: Chronic Qualifiers: Heart failure type: systolic Heart failure chronicity: chronic Qualified Code(s): I50.22 - Chronic systolic (congestive) heart failure (2) Cardiomyopathy Status: Chronic Qualifiers: Cardiomyopathy type: unspecified Qualified Code(s): I42.9 - Cardiomyopathy , unspecified (3) Diarrhea Status: Acute Qualifiers: Diarrhea type: presumed infectious Qualified Code(s): R19.7 - Diarrhea, unspecified Comment: Secondary to chemotherapy (4) Colon cancer Status: Chronic Qualifiers: Colon location: ascending Qualified Code(s): C18.2 - Malignant neoplasm of ascending colon (5) Perforation bowel Status: Acute Comment: Microperforation (6) Hypokalemia, gastrointestinal losses Status: Acute Comment: secondary to chemotherapy - Consult Date of Consult: 08/18/17 The patient was seen in request of Dr. Quintero for neutropenia and diarrhea after chemotherapy. History of colon cancer receiving adjuvant FOLFOX & cardiomyopathy. My final recommendations will be communicated to Dr. Quintero and also by electronic medical records. - Reason for Consult Neutropenia & diarrhea after chemotherapy History of colon cancer Perforation of bowel History and Physical Date of Admission: 08/17/17 History of Present Illness: 67 y/o WF presents with abdominal pain, diarrhea, nausea/emesis x 3 days since Tuesday. History of stage III colon cancer of right colon cancer 05/02/17 - s/p laparoscopic right hemicolectomy, started adjuvant chemotherapy in 2017 with FOLFOX. She had mild- moderate diarrhea (3-5x daily), she did well with her chemotherapy until the last week. Home has call me in the office yesterday with patient experiencing 6 pound weight loss since last week, with increased nausea, vomiting, abdominal cramps and watery diarrhea. I instructed her to go to the emergency room for further evaluation. Presented to ED at [facility] and noted to have pneumatosis coli and small focal area of free air around the bowel. Potassium was low at 2.6 present with moderate anemia & leukopenia. He was transferred to [facility] further surgical evaluation. Patient was started on Zosyn and Flagyl & C difficile toxin still pending. Blood cultures were obtained at [facility] & also on admission here. Multiple K- rider given for treatment of hypokalemia. She has no abdominal cramps this morning and denies nausea or vomitting on clear liquid diet, She still has watery diarrhea. No fever, or urinary symptoms. No Chest pain, cough or shortness of breath. Some substernal pain & gastric pain today. Past Medical History: congestive heart failure cardiomegaly elevated TSH with normal T4 Rheumatic Heart valvular disease history of right colon cancer hypertension Past Surgical History: excision of knot on neck at age 3 (thyroglossal duct cyst?) right finger traumatic amputation dental surgery 2003 laparoscopic right hemicolectomy Medications: carvedilol pepcid zestril zoloft Allergies: latex Social history: TOB use denies ETOH use denies Lives in fpc Review of Systems: General - denies fevers Cardiovascular denies chest pain, denies history of heart attack Pulmonary denies shortness of breath, denies coughing up blood Gastrointestinal see HPI Neurological denies seizures, denies history of stroke Genitourinary denies burning with urination, denies blood in urine Hematological denies spontaneous/prolonged bleeding Skin denies open non healing wounds Musculoskeletal denies history of fractures Endocrine denies diabetes, denies thyroid problems Psychological agoraphobia, anxiety disorder Vital Signs - 24 hr Temp Pulse Resp BP Pulse Ox 08/18/17 03:52 97.9 F 75 18 115/78 97 08/17/17 21:52 98.1 F 75 18 110/67 94 08/17/17 19:25 97.9 F 89 16 116/81 H 98 Physical examination: General WD/WN WF in no apparent distress, alert and oriented HEENT Normocephalic. EOM intact with sclera clear and no icterus noted. Neck is supple with no jugular venous distention noted. Trachea is midline. Lungs clear to auscultation, normal breath sounds. No rales/rhonchi/ wheezing noted. No labored breathing noted, such as retractions. Heart normal S1 and S2 auscultated. No rubs/clicks/ + systolic and diastolic murmurs noted. . Abdomen soft with mild tenderness but no peritoneal signs, no guarding or rebound tenderness bowel sounds. Extremities no calf tenderness noted. No pitting edema noted. bilateral lower extremity dependent swelling Genitourinary/Rectal deferred Skin normal skin integrity. Neurological non focal. Psychological flat affect, patient is calm and appropriate Laboratory Results - last 24 hr 05/12/2708/17/17 08/17/17 20:21 20:21 20:31 WBC 3.0 L RBC 3.22 L Hgb 10.4 L Hct 31.6 L MCV 98.1 MCH 32.3 H MCHC 32.9 RDW 21.0 H RDW Differential 75.8 H Plt Count 133 L MPV 10.9 Immature Gran % (Auto) 0.000 Neut % (Auto) 72.2 H Lymph % (Auto) 14.[address] [place] % (Auto) 12.7 H Eos % (Auto) 0.7 Baso % (Auto) 0.0 Absolute Neuts (auto) 2.2 Absolute Lymphs (auto) 0.43 L Total Counted Not Reportable Differential Comment SCANNED Sodium 142 Potassium 3.0 L Chloride 111 H Carbon Dioxide 24.0 Anion Gap 7 BUN 20 H Creatinine 0.96 Estim Creat Clear Calc 49.10 Est GFR (MDRD) Af Amer 74 Est GFR (MDRD) Non-Af 61 BUN/Creatinine Ratio 20.8 H Glucose 94 Lactic Acid Calcium 8.3 L Magnesium 2.4 08/17/17 08/18/17 08/18/17 20:31 05:30 05:30 WBC 2.9 L RBC 2.80 L Hgb 9.1 L Hct 27.5 L MCV 98.2 MCH 32.5 H MCHC 33.1 RDW 21.1 H RDW Differential 76.7 H Plt Count 112 L MPV 10.5 Immature Gran % (Auto) 0.000 Neut % (Auto) 68.2 Lymph % (Auto) 16.[address] [place] % (Auto) 13.1 H Eos % (Auto) 1.4 Baso % (Auto) 0.7 Absolute Neuts (auto) 2.0 Absolute Lymphs (auto) 0.48 L Total Counted Differential Comment Sodium Potassium 2.8 L Chloride Carbon Dioxide Anion Gap BUN Creatinine Estim Creat Clear Calc Est GFR (MDRD) Af Amer Est GFR (MDRD) Non-Af BUN/Creatinine Ratio Glucose Lactic Acid 0.7 Calcium Magnesium Impression: Pancytopenia secondary chemotherapy & Sepsis pneumatosis coli, localized perforation of bowel- stable Hypokalemia secondary to decreased oral intake and increased diarrhea. History of stage III colon cancer Plan: -Agree with conservative treatment with IV antibiotic (Zosyn and Flagyl ) -C. difficile is pending -clear liquid diet and follow-up with surgery. -start Granix 380 mcg sq daily if ANC < 1000 -Lovenox 40 mg sq daily for DVT prophalaxis -Fluid to KVO & potassium with K rider ( keep K > 4.0 ) -Check potassium as needed every 6 hours. -Monitor CBC and BMP daily. cc: Dr. Vesta Quintero; Dr. Yana Israel
[2017-08-18 09:26] LABS: Anisocytosis 1+; Differential Comment SCANNED; Hypochromasia 1+
[2017-08-18 09:33] VITALS: BP 108/67; PULSE 72; RESP 16; TEMP 37.2; O2SAT 94
[2017-08-18 09:37] VITALS: PULSE 80
[2017-08-18] MEDS: Lisinopril 5 MG Tablet PO ×2 (09:46→23:05)
[2017-08-18] MEDS: Sertraline 50 MG Tablet PO (09:46)
[2017-08-18] MEDS: Famotidine 20 MG Tablet 40 MG PO (09:46)
[2017-08-18] MEDS: Carvedilol 3.125 MG TABLET PO ×2 (09:46→23:04)
--- NOTE | 2017-08-18 10:32 | PCM.DC.GS ---
Discharge Diet: No Restrictions Discharge Activity: Return to Normal Activity, May not drive while taking narcotic pain medications. Lifting Restrictions: no lifting greater than 20 pounds for one month Call your doctor if your incision/area has: Continuous Slow Oozing, Foul Smelling Discharge Call your doctor if you observe: Fever of 101 or Higher Additional Dressing/Incision Instructions:: Leave dressings in place. May get wet in shower. Do not soak - no tub baths/swimming Allergies/Adverse Reactions: Allergies latex Allergy (Verified 08/17/17 18:35) Rash Medications to take at Discharge Acetaminophen [Tylenol] 650 mg PO Q6H PRN PRN 08/17/17 Carvedilol [Coreg (Beta Salomon)] 3.125 mg PO BID 08/17/17 Famotidine [Pepcid] 40 mg PO DAILY 08/17/17 Ferrous Sulfate 325 mg PO BIDCM 08/17/17 Furosemide [Lasix] 40 mg PO DAILY 08/17/17 Guaifenesin [Mucinex] 600 mg PO BID 08/17/17 Lisinopril [Zestril] 5 mg PO BID 08/17/17 Loperamide HCl [Imodium A-D] 2 mg PO Q4H PRN PRN 08/17/17 Sertraline HCl [Zoloft] 50 mg PO DAILY 08/17/17 Sodium Chloride [Saline Nasal [place]] 1 spray NASAL DAILY PRN 08/17/17 Primary Care Physician: Galina Macdonald MD [Primary Care Provider] - Please Follow Up With: Vesta Quintero MD - call When: to be seen in about one week, please call for date and time, thank you
--- NOTE | 2017-08-18 10:35 | DCINST_ITS ---
Discharge Diet: No Restrictions Discharge Activity: Return to Normal Activity, May not drive while taking narcotic pain medications. Lifting Restrictions: no lifting greater than 20 pounds for one month Call your doctor if your incision/area has: Continuous Slow Oozing, Foul Smelling Discharge Call your doctor if you observe: Fever of 101 or Higher Additional Dressing/Incision Instructions:: Leave dressings in place. May get wet in shower. Do not soak - no tub baths/swimming Allergies/Adverse Reactions: Allergies latex Allergy (Verified 08/17/17 18:35) Rash Medications to take at Discharge Acetaminophen [Tylenol] 650 mg PO Q6H PRN PRN 08/17/17 Carvedilol [Coreg (Beta Salomon)] 3.125 mg PO BID 08/17/17 Famotidine [Pepcid] 40 mg PO DAILY 08/17/17 Ferrous Sulfate 325 mg PO BIDCM 08/17/17 Furosemide [Lasix] 40 mg PO DAILY 08/17/17 Guaifenesin [Mucinex] 600 mg PO BID 08/17/17 Lisinopril [Zestril] 5 mg PO BID 08/17/17 Loperamide HCl [Imodium A-D] 2 mg PO Q4H PRN PRN 08/17/17 Sertraline HCl [Zoloft] 50 mg PO DAILY 08/17/17 Sodium Chloride [Saline Nasal [place]] 1 spray NASAL DAILY PRN 08/17/17 Primary Care Physician: Galina Macdonald MD [Primary Care Provider] - Please Follow Up With: Vesta Quintero MD - call When: to be seen in about one week, please call for date and time, thank you
--- NOTE | 2017-08-18 10:36 | OP.PN_ITS ---
Immediate Post-Op Note Date of Procedure: 08/18/17 Primary Surgeon/Physician: Vesta Quintero territory service representative: Francis Landis Pre-Operative Diagnosis: intraabdominal lymphadenopathy Post-Operative Diagnosis: same, path pending Surgery/Procedure Performed:: diagnostic laparoscopy, excision of intraabdominal lymph node Type of Anesthesia:: General ASA Class: ASA1 Normal Healthy Patient - Admit VTE Documentation VTE Present on Admission: Yes VTE Mechan Device Prophylaxis: SCD's
[2017-08-18] MEDS: Lactated Ringers 1,000 ML 15 ML IV ×2 (15:10→15:17)
[2017-08-18 15:26] VITALS: BP 122/67; PULSE 74; RESP 18; TEMP 37.1; O2SAT 94
--- NOTE | 2017-08-18 16:56 | CASEMGMT ---
Addendum entered by Candice Mccracken 08/22/17 13:06: It should be noted that this worker meant to put [facility] instead of [facility]. Pt was from [facility] and returned there at discharge on Tuesday. Original Note: Social Work Note HUSSAIN Freitas informed this worker that pt is from [facility]. HUSSAIN Freitas placed a call to [facility] to inform them that pt is in the hospital and that her plan is to return to the group home at discharge. Per Tong Kline, this worker doesn't have to complete a new Level of Care for pt. SW faxed clinicals to Tong Kline. Plan[facility] Candice Mccracken [employer]OWSPORT INSTRUCTOR, COUNTER WAITER
[2017-08-18 19:40] VITALS: BP 114/67; PULSE 81; RESP 18; TEMP 36.8; O2SAT 95
--- NOTE | 2017-08-18 20:39 | PCM.PROGNOTE ---
Patient Problems: Active and Suspected Problems (Last Reviewed 06/03/17 @ 11:43 by Kitty Mckay) Diarrhea (Acute) Secondary to chemotherapy Perforation bowel (Acute) Microperforation Hypokalemia, gastrointestinal losses (Acute) secondary to chemotherapy Subjective: This patient was seen at the request of general surgery due to hypokalemia and C. difficile colitis. Patient was admitted to Dr. Quintero service and it was felt to have a microperforation of the right colon, stool was positive for C. difficile toxin and the patient had hypokalemia. Oncology was consulted and is presently adjusting the patient's potassium and ordering follow-up labs for potassium. At the time my examination today, patient complains of mild midabdominal pain but otherwise has no complaints. I reviewed the patient's medications, she is presently receiving IV Zosyn and Flagyl. - Physical Exam General: Alert, Oriented x3, Cooperative, No apparent distress, Well developed HEENT: Atraumatic, PERRLA, EOMI, Normocephalic Oral: Moist Mucosa Neck: Supple, No JVD, Negative Carotid Bruits, No Nuchal Rigidity, Trachea Midline, Thyroid Normal Size and Texture Lungs: Clear to auscultation, Normal air movement, No rhonchi, No wheeze, No rales Cardiovascular: Regular rate, Regular Rhythm, Normal S1, Normal S2, Murmur - There is a 2/6 systolic murmur noted at the left sternal border, apex, and right sternal border Abdomen: Bowel Sounds Present, Soft, Tender - Mild mid abdominal tenderness is noted to palpation Extremities: No clubbing, No cyanosis, No edema, Capillary Refill Less than 3 Seconds Skin: No rashes, No breakdown Musculoskeletal: No Tenderness to Palpation of Joints or Extremities Neurological: Cranial nerves II-XII grossly intact, Neuro grossly intact, Sensory exam intact to light touch and pain, Coordination normal Psych/Mental Status: Appropriate, Flat Affect, Alert and oriented to time, place, person, mood and affect Vital Signs Temp Pulse Resp BP Pulse Ox 98.3 F 81 18 114/67 95 08/18/17 19:40 08/18/17 19:40 08/18/17 19:40 08/18/17 19:40 08/18/17 19:40 Oxygen Delivery Method Room Air Weight: 55.7 kg Body Mass Index (BMI) 21.0 Intake and Output for Last 24 Hours 05/08/18 05/09/18 05/10/18 23:59 23:59 23:59 Intake Total 3321.6 / 3321.6 Balance 3321.6 / 3321.6 Microbiology Past 72 Hours 08/18/17 11:30 C. difficile DNA Amplification - Final Stool Toxigenic C. difficile DNA Laboratory Tests Past 24 Hrs 08/17/17 08/17/17 08/17/17 20:21 20:21 20:31 WBC 3.0 L RBC 3.22 L Hgb 10.4 L Hct 31.6 L MCV 98.1 MCH 32.3 H MCHC 32.9 RDW 21.0 H RDW Differential 75.8 H Plt Count 133 L MPV 10.9 Immature Gran % (Auto) 0.000 Neut % (Auto) 72.2 H Lymph % (Auto) 14.4 L [place] % (Auto) 12.7 H Eos % (Auto) 0.7 Baso % (Auto) 0.0 Absolute Neuts (auto) 2.2 Absolute Lymphs (auto) 0.43 L Total Counted Not Reportable Differential Comment SCANNED Hypochromasia Anisocytosis Sodium 142 Potassium 3.0 L Chloride 111 H Carbon Dioxide 24.0 Anion Gap 7 BUN 20 H Creatinine 0.96 Estim Creat Clear Calc 49.10 Est GFR (MDRD) Af Amer 74 Est GFR (MDRD) Non-Af 61 BUN/Creatinine Ratio 20.8 H Glucose 94 Lactic Acid Calcium 8.3 L Magnesium 2.4 Total Bilirubin AST ALT Alkaline Phosphatase Total Protein Albumin Globulin Albumin/Globulin Ratio 08/17/17 08/18/17 08/18/17 20:31 05:30 05:30 WBC 2.9 L RBC 2.80 L Hgb 9.1 L Hct 27.5 L MCV 98.2 MCH 32.5 H MCHC 33.1 RDW 21.1 H RDW Differential 76.7 H Plt Count 112 L MPV 10.5 Immature Gran % (Auto) 0.000 Neut % (Auto) 68.2 Lymph % (Auto) 16.6 L [place] % (Auto) 13.1 H Eos % (Auto) 1.4 Baso % (Auto) 0.7 Absolute Neuts (auto) 2.0 Absolute Lymphs (auto) 0.48 L Total Counted Not Reportable Differential Comment SCANNED Hypochromasia 1+ Anisocytosis 1+ Sodium Potassium 2.8 L Chloride Carbon Dioxide Anion Gap BUN Creatinine Estim Creat Clear Calc Est GFR (MDRD) Af Amer Est GFR (MDRD) Non-Af BUN/Creatinine Ratio Glucose Lactic Acid 0.7 Calcium Magnesium Total Bilirubin AST ALT Alkaline Phosphatase Total Protein Albumin Globulin Albumin/Globulin Ratio 08/18/17 05:30 WBC RBC Hgb Hct MCV MCH MCHC RDW RDW Differential Plt Count MPV Immature Gran % (Auto) Neut % (Auto) Lymph % (Auto) [place] % (Auto) Eos % (Auto) Baso % (Auto) Absolute Neuts (auto) Absolute Lymphs (auto) Total Counted Differential Comment Hypochromasia Anisocytosis Sodium 142 Potassium 2.8 L Chloride 111 H Carbon Dioxide 24.0 Anion Gap 7 BUN 20 H Creatinine 0.91 Estim Creat Clear Calc 51.80 Est GFR (MDRD) Af Amer 79 Est GFR (MDRD) Non-Af 65 BUN/Creatinine Ratio 21.9 H Glucose 88 Lactic Acid Calcium 8.0 L Magnesium Total Bilirubin 0.30 AST 18 ALT 11 L Alkaline Phosphatase 60 Total Protein 5.6 L Albumin 2.4 L Globulin 3.2 Albumin/Globulin Ratio 0.8 L Medical Necessity - Tobacco Use Smoking Status: Never smoker Assessment/Plan Active and Suspected Problems (Last Reviewed 06/03/17 @ 11:43 by Kitty Mckay) Diarrhea (Acute) Secondary to chemotherapy Perforation bowel (Acute) Microperforation Hypokalemia, gastrointestinal losses (Acute) secondary to chemotherapy #1 C. difficile colitis-patient's IV Flagyl was discontinued, patient was placed on oral vancomycin, I relayed this to general surgery #2 hypokalemia-probably secondary to diarrhea, it appears that oncology is adjusting the patient's electrolytes at this time, I will allow oncology to continue their management of the patient's hypokalemia #3 mitral valve insufficiency-mild #4 pulmonary hypertension-moderate #5 tricuspid insufficiency-mild to moderate #6 recently diagnosed colon cancer with right hemicolectomy #7 microperforation of the colon-currently being managed with IV Zosyn, no surgery is planned #8 anemia of chronic disease Code Visit Inpatient E&M: 53308 Subs Hosp L2
--- NOTE | 2017-08-18 22:10 | NURSING ---
Pt had K+ to be drawn attempted to drawn off yanez was a bit sluggish when trying to draw the wast then was unable to get blood for K+ did flush without difficulty. Had lab come and draw her K+.
[2017-08-18 23:03] VITALS: BP 125/73; PULSE 67
[2017-08-18] MEDS: Nystatin Ointment 1 APPLIC TOPICAL (23:04)
[2017-08-18 23:27] LABS: Potassium 3.9 mmol/L (3.5-5.1)
[2017-08-19 01:40] VITALS: BP 135/71; PULSE 65; RESP 18; TEMP 37.1; O2SAT 95
[2017-08-19] MEDS: 0.9% NaCl Peripheral Flush Adult/Peds IV ×3 (05:55→09:43)
[2017-08-19] MEDS: Enoxaparin 40 MG/0.4 ML Syringe SC (05:55)
[2017-08-19] MEDS: Piperacil/Tazobactam 3.375 GM/50 ML ML IV ×3 (05:56→22:45)
[2017-08-19 06:30] LABS: Absolute Lymphocyte Count 0.72 X10^3/ul (0.83-4.51); Absolute Neutrophil Count 2.4 X10^3/uL (2.0-7.7); Basophil# 0.02 X10^3/uL; Basophil% 0.6 % (0-1); Eosinophil# 0.04 X10^3/uL; Eosinophils% 1.1 % (0-5); Hematocrit 26.5 % (37-47); Hemoglobin 8.9 g/dl (12.0-15.0); Lymphocyte # 0.72 X10^3/ul (4.0); Lymphocyte % 20.5 % (19-41); Mean Corp Hgb Conc 33.6 g/gl (32-36); Mean Corpuscular Hgb 33.7 pg (27.0-32.0); Mean Corpuscular Volume 100.4 fL (81-99); Mean Platelet Vol. 10.6 fl (6.2-12.0); Monocyte# 0.37 X10^3/uL; Monocyte% 10.5 % (0-10); Neutrophil # 2.36 X10^3/uL (2.7-7.7); Platelet Count 125 K/mm3 (150-450); RBC Distribution Width CV 20.5 % (11.6-14.6); RBC Distribution Width SD 72.4 fl (35.1-43.9); Red Blood Count 2.64 M/mm3 (4.2-5.4); White Blood Count 3.5 K/mm3 (4.4-11.0)
[2017-08-19 06:31] LABS: Differential Indicated SCAN CRITERIA MET; POSITIVE COUNT NO; POSITIVE DIFFERENTIAL NO; POSITIVE MORPHOLOGY YES
[2017-08-19 06:32] LABS: Anion Gap 7 (5-15); BUN 11 mg/dL (7-18); BUN/Creat Ratio 14.3 RATIO (10-20); Calcium,Total 7.7 mg/dL (8.5-10.1); Chloride 113 mmol/L (98-107); Creatinine, Serum 0.77 mg/dL (0.55-1.02); EST Glomerular Filtration Rate 79 mL/min (>60); Est Glom Filt Rate - Afr Amer 96 mL/min (>60); Estimated Creatinine Clearance 47.14 ml/min; Glucose 95 mg/dL (74-106); Potassium 3.4 mmol/L (3.5-5.1); Sodium Level 144 mmol/L (136-145)
--- NOTE | 2017-08-19 06:51 | CT_ITS ---
STUDY: CT ABDOMEN AND PELVIS WITHOUT CONTRAST REASON FOR EXAM: Female, 67 years old. Abdominal pain and diarrhea. Prior right hemicolectomy for colon cancer. RADIATION DOSAGE (If Supplied By Facility): CTDIvol = ( 6.07 ) mGy, DLP = ( 283.5 ) mGycm TECHNIQUE: Transaxial images were obtained from the dome of the diaphragm to the symphysis pubis without oral contrast, and without intravenous contrast. Sagittal and coronal images were reconstructed. Individualized dose optimization techniques were used for this CT. COMPARISON: Comparison is made with prior outside examination dated August 18, 2017. FINDINGS: Increased linear markings at the left lung base suggests rebleeding or atelectasis. The visualized portions of the heart are within normal limits. Normal liver. Distended gallbladder. Increased densities seen within the gallbladder lumen suggestive of either multiple tiny gallstones or diffuse sludge. Normal spleen. Normal pancreas. Normal bilateral adrenal glands. Normal right kidney. Normal left kidney. There is a small hiatal hernia. Normal small intestine. Fluid is seen within the rectosigmoid colon and rectum. The appendix is visualized and appears normal. Increased markings in the right perinephric space. This is nonspecific. There is diffuse atherosclerotic calcification of the abdominal aorta, without a demonstrated aneurysm. Normal inferior vena cava. Normal retroperitoneum. Normal urinary bladder. Normal abdominal wall. There are diffuse degenerative changes of the visualized lumbar spine. CT/Abdomen/Pelvis without Cont IMPRESSION: Nonspecific gas pattern. Distended gallbladder with either sludge or multiple tiny gallstones within the gallbladder lumen. Electronically Signed: Duran Steven MD at 9:11 EDT Tel [phone], Service support ,
[2017-08-19 07:02] LABS: Anisocytosis 1+; Differential Comment SCAN; Macrocytosis 1+
--- NOTE | 2017-08-19 07:06 | PCM.PN.SRG ---
Patient Problems: Active and Suspected Problems (Last Reviewed 06/03/17 @ 11:43 by Kitty Mckay) Diarrhea (Acute) Secondary to chemotherapy Perforation bowel (Acute) Microperforation Hypokalemia, gastrointestinal losses (Acute) secondary to chemotherapy Subjective: Patient states that her abdomen is sore Has been passing flatus, bowel movement yesterday feels hungry - Physical Exam General: Alert, Oriented x3 Oral: - - mucus membranes less tacky Neck: Supple Abdomen: Bowel Sounds Present, Soft Vital Signs Temp Pulse Resp BP Pulse Ox 98.7 F 65 18 135/71 H 95 08/19/17 01:40 08/19/17 01:40 08/19/17 01:40 08/19/17 01:40 08/19/17 01:40 Oxygen Delivery Method Room Air Weight: 55.7 kg Body Mass Index (BMI) 21.0 Intake and Output for Last 24 Hours 08/17/17 08/18/17 08/19/17 23:59 23:59 23:59 Intake Total 3321.6 / 3321.6 675.9 / 675.9 Balance 3321.6 / 3321.6 675.9 / 675.9 Microbiology Past 72 Hours 08/18/17 11:30 C. difficile DNA Amplification - Final Stool Toxigenic C. difficile DNA Laboratory Tests Past 24 Hrs 08/18/17 08/18/17 08/18/17 05:30 05:30 22:54 WBC 2.9 L RBC 2.80 L Hgb 9.1 L Hct 27.5 L MCV 98.2 MCH 32.5 H MCHC 33.1 RDW 21.1 H RDW Differential 76.7 H Plt Count 112 L MPV 10.5 Immature Gran % (Auto) 0.000 Neut % (Auto) 68.2 Lymph % (Auto) 16.6 L [place] % (Auto) 13.1 H Eos % (Auto) 1.4 Baso % (Auto) 0.7 Absolute Neuts (auto) 2.0 Absolute Lymphs (auto) 0.48 L Total Counted Not Reportable Differential Comment SCANNED Hypochromasia 1+ Anisocytosis 1+ Macrocytosis Sodium 142 Potassium 2.8 L 3.9 Chloride 111 H Carbon Dioxide 24.0 Anion Gap 7 BUN 20 H Creatinine 0.91 Estim Creat Clear Calc 51.80 Est GFR (MDRD) Af Amer 79 Est GFR (MDRD) Non-Af 65 BUN/Creatinine Ratio 21.9 H Glucose 88 Calcium 8.0 L Total Bilirubin 0.30 AST 18 ALT 11 L Alkaline Phosphatase 60 Total Protein 5.6 L Albumin 2.4 L Globulin 3.2 Albumin/Globulin Ratio 0.8 L 08/19/17 08/19/17 06:00 06:00 WBC 3.5 L RBC 2.64 L Hgb 8.9 L Hct 26.5 L MCV 100.4 H MCH 33.7 H MCHC 33.6 RDW 20.5 H RDW Differential 72.4 H Plt Count 125 L MPV 10.6 Immature Gran % (Auto) 0.300 Neut % (Auto) 67.0 Lymph % (Auto) 20.5 [place] % (Auto) 10.5 H Eos % (Auto) 1.1 Baso % (Auto) 0.6 Absolute Neuts (auto) 2.4 Absolute Lymphs (auto) 0.72 L Total Counted Not Reportable Differential Comment SCAN Hypochromasia Anisocytosis 1+ Macrocytosis 1+ Sodium 144 Potassium 3.4 L Chloride 113 H Carbon Dioxide 24.0 Anion Gap 7 BUN 11 Creatinine 0.77 Estim Creat Clear Calc 47.14 Est GFR (MDRD) Af Amer 96 Est GFR (MDRD) Non-Af 79 BUN/Creatinine Ratio 14.3 Glucose 95 Calcium 7.7 L Total Bilirubin AST ALT Alkaline Phosphatase Total Protein Albumin Globulin Albumin/Globulin Ratio Medical Necessity - Tobacco Use Smoking Status: Never smoker Assessment/Plan Active and Suspected Problems (Last Reviewed 06/03/17 @ 11:43 by Kitty Mckay) Diarrhea (Acute) Secondary to chemotherapy Perforation bowel (Acute) Microperforation Hypokalemia, gastrointestinal losses (Acute) secondary to chemotherapy Impression: pneumatosis coli severe diarrhea - c diff positive abdominal pain- resolving localized perforation Discussion/Plan: patient clinically improved continue IV antibiotics potassium improving recheck CT scan
--- NOTE | 2017-08-19 07:54 | PCM.PROGNOTE ---
Patient Problems: Active and Suspected Problems (Last Reviewed 06/03/17 @ 11:43 by Kitty Mckay) Diarrhea (Acute) Secondary to chemotherapy Perforation bowel (Acute) Microperforation Hypokalemia, gastrointestinal losses (Acute) secondary to chemotherapy Subjective: She is feeling better overall. Diarrhea has slowed down since she started vancomycin. Abdomen is less tender, no nausea or vomiting. CT scan abdomen/pelvis is pending this morning. C. difficile was positive. She had several K rider and oral potassium for hypokalemia secondary to GI loss. - Physical Exam General: Alert, Oriented x3, No apparent distress Oral: Moist Mucosa, No Gingival or Mucosal Lesions/ Ulcerations Neck: Supple, No JVD Lungs: Clear to auscultation Cardiovascular: Regular rate, Regular Rhythm, Normal S1, Normal S2, No murmurs Abdomen: Bowel Sounds Present, Soft, Non-Distended, No Hepato-splenomegaly, - - Slightly tender in the mid abdomen, no peritoneal signs. Extremities: No clubbing, No cyanosis, No edema Skin: No rashes Lymphatic: No Cervical, Supraclavicular, or Inguinal Adenopathy Neurological: Neuro grossly intact Psych/Mental Status: Normal Affect Vital Signs Temp Pulse Resp BP Pulse Ox 98.7 F 65 18 135/71 H 95 08/19/17 01:40 08/19/17 01:40 08/19/17 01:40 08/19/17 01:40 08/19/17 01:40 Oxygen Delivery Method Room Air Weight: 122 lb 12.76 oz Body Mass Index (BMI) 21.0 Intake and Output for Last 24 Hours 08/17/17 08/18/17 08/19/17 23:59 23:59 23:59 Intake Total 3321.6 / 3321.6 675.9 / 675.9 Balance 3321.6 / 3321.6 675.9 / 675.9 Microbiology Past 72 Hours 08/18/17 11:30 C. difficile DNA Amplification - Final Stool Toxigenic C. difficile DNA Laboratory Tests Past 24 Hrs 08/18/17 08/18/17 08/18/17 05:30 05:30 22:54 WBC 2.9 L RBC 2.80 L Hgb 9.1 L Hct 27.5 L MCV 98.2 MCH 32.5 H MCHC 33.1 RDW 21.1 H RDW Differential 76.7 H Plt Count 112 L MPV 10.5 Immature Gran % (Auto) 0.000 Neut % (Auto) 68.2 Lymph % (Auto) 16.6 L [place] % (Auto) 13.1 H Eos % (Auto) 1.4 Baso % (Auto) 0.7 Absolute Neuts (auto) 2.0 Absolute Lymphs (auto) 0.48 L Total Counted Not Reportable Differential Comment SCANNED Hypochromasia 1+ Anisocytosis 1+ Macrocytosis Sodium 142 Potassium 2.8 L 3.9 Chloride 111 H Carbon Dioxide 24.0 Anion Gap 7 BUN 20 H Creatinine 0.91 Estim Creat Clear Calc 51.80 Est GFR (MDRD) Af Amer 79 Est GFR (MDRD) Non-Af 65 BUN/Creatinine Ratio 21.9 H Glucose 88 Calcium 8.0 L Total Bilirubin 0.30 AST 18 ALT 11 L Alkaline Phosphatase 60 Total Protein 5.6 L Albumin 2.4 L Globulin 3.2 Albumin/Globulin Ratio 0.8 L 08/19/17 08/19/17 06:00 06:00 WBC 3.5 L RBC 2.64 L Hgb 8.9 L Hct 26.5 L MCV 100.4 H MCH 33.7 H MCHC 33.6 RDW 20.5 H RDW Differential 72.4 H Plt Count 125 L MPV 10.6 Immature Gran % (Auto) 0.300 Neut % (Auto) 67.0 Lymph % (Auto) 20.5 [place] % (Auto) 10.5 H Eos % (Auto) 1.1 Baso % (Auto) 0.6 Absolute Neuts (auto) 2.4 Absolute Lymphs (auto) 0.72 L Total Counted Not Reportable Differential Comment SCAN Hypochromasia Anisocytosis 1+ Macrocytosis 1+ Sodium 144 Potassium 3.4 L Chloride 113 H Carbon Dioxide 24.0 Anion Gap 7 BUN 11 Creatinine 0.77 Estim Creat Clear Calc 47.14 Est GFR (MDRD) Af Amer 96 Est GFR (MDRD) Non-Af 79 BUN/Creatinine Ratio 14.3 Glucose 95 Calcium 7.7 L Total Bilirubin AST ALT Alkaline Phosphatase Total Protein Albumin Globulin Albumin/Globulin Ratio Medical Necessity - Tobacco Use Smoking Status: Never smoker Assessment/Plan Active and Suspected Problems (Last Reviewed 06/03/17 @ 11:43 by Kitty Mckay) Diarrhea (Acute) Secondary to chemotherapy Perforation bowel (Acute) Microperforation Hypokalemia, gastrointestinal losses (Acute) secondary to chemotherapy 1) diarrhea secondary to chemotherapy and C. difficile colitis -Vancomycin orally q 6 hours -Replace fluid and potassium 2) bowel microperforation-asymptomatic with minimal tenderness today -CT abdomen pelvis today before advancing diet. -Continue Zosyn; blood cultures from [facility] & on admission here is pending 3) hypokalemia secondary to GI loss and inadequate oral uptake. - start D5W 40mEq KCl at 75 cc/hr - KCl 20 mEq twice daily & monitor potassium - keep potassium above 4.0 4) Stage 3 colon cancer-status post FOLFOX day 10 -Mild anemia after chemotherapy -Monitor CBC daily -Hold chemotherapy until patient recovered; may discuss changing regimen to 5-FU infusion or Xeloda at this point x 3 months -Schedule follow-up appointment next week with me in the office. cc: Dr. Sandhu, Dr. Vesta Quintero; Dr. Yana Israel
[2017-08-19] MEDS: 0.9% NaCl VAD Flush 10 ML IV (08:07)
[2017-08-19 09:32] VITALS: BP 154/84; PULSE 66; RESP 16; TEMP 37; O2SAT 97
[2017-08-19] MEDS: Nystatin Ointment 1 APPLIC TOPICAL ×2 (09:43→22:49)
[2017-08-19] MEDS: Famotidine 20 MG Tablet 40 MG PO (09:44)
[2017-08-19] MEDS: Carvedilol 3.125 MG TABLET PO ×2 (09:44→22:46)
[2017-08-19] MEDS: Sertraline 50 MG Tablet PO (09:44)
[2017-08-19] MEDS: Lisinopril 5 MG Tablet PO ×2 (09:44→22:46)
--- NOTE | 2017-08-19 11:02 | NURSING ---
justus Durham in pharmacy notified her that that most current iv fld has not been received and it is needed.
--- NOTE | 2017-08-19 12:51 | PN_ITS ---
Patient Problems: Active and Suspected Problems (Last Reviewed 06/03/17 @ 11:43 by Kitty Mckay) Diarrhea (Acute) Secondary to chemotherapy Perforation bowel (Acute) Microperforation Hypokalemia, gastrointestinal losses (Acute) secondary to chemotherapy Subjective: Seen and examined. Patient is still complaining of abdominal discomfort mainly on the left side and left lower quadrant, although as much improved. Patient moved her bowel. Patient did not had food since Tuesday. Patient is admitted with nausea, vomiting and abdominal pain with localized bowel microperforation along with pneumatosis coli; most probably from C. difficile. Vitals/I&O's: Vital Signs Temp Pulse Resp BP Pulse Ox 98.6 F 66 16 154/84 H 97 08/19/17 09:32 08/19/17 09:32 08/19/17 09:32 08/19/17 09:32 08/19/17 09:32 Oxygen Delivery Method Room Air Weight: 122 lb 12.76 oz Body Mass Index (BMI) 21.0 Intake and Output for Last 24 Hours 08/17/17 08/18/17 08/19/17 23:59 23:59 23:59 Intake Total 3321.6 / 3321.6 789.9 / 789.9 Balance 3321.6 / 3321.6 789.9 / 789.9 General: Alert, Oriented x3, Cooperative HEENT: Atraumatic, PERRLA, EOMI, Normocephalic Neck: Supple, No JVD, Negative Carotid Bruits Lungs: Normal air movement, No rhonchi, No wheeze, Diminished Cardiovascular: Regular rate, Regular Rhythm, Normal S1, Normal S2, No murmurs Abdomen: Bowel Sounds Present, Soft, Hyperactive Bowel Sounds, Tender - Mild hip tenderness present over left lower quadrant and left upper quadrant Extremities: No edema, Capillary Refill Less than 3 Seconds Skin: No rashes, No breakdown Musculoskeletal: No Tenderness to Palpation of Joints or Extremities, Arthritic Changes, Muscle Wasting Neurological: Cranial nerves II-XII grossly intact Psych/Mental Status: Normal Affect, Appropriate Microbiology Past 72 Hours 08/18/17 11:30 Stool C. difficile DNA Amplification - Final Toxigenic C. difficile DNA Laboratory Results 08/18/17 22:54: Potassium 3.9 08/19/17 06:00: WBC 3.5 L, RBC 2.64 L, Hgb 8.9 L, Hct 26.5 L, MCV 100.4 H, MCH 33.7 H, MCHC 33.6, RDW 20.5 H, RDW Differential 72.4 H, Plt Count 125 L, MPV 10.6, Immature Gran % (Auto) 0.300, Neut % (Auto) 67.0, Lymph % (Auto) 20.5, [place] % (Auto) 10.5 H, Eos % (Auto) 1.1, Baso % (Auto) 0.6, Absolute Neuts (auto ) 2.4, Absolute Lymphs (auto) 0.72 L, Total Counted Not Reportable, Differential Comment SCAN, Anisocytosis 1+, Macrocytosis 1+ 08/19/17 06:00: Sodium 144, Potassium 3.4 L, Chloride 113 H, Carbon Dioxide 24.0 , Anion Gap 7, BUN 11, Creatinine 0.77, Estim Creat Clear Calc 47.14, Est GFR ( MDRD) Af Amer 96, Est GFR (MDRD) Non-Af 79, BUN/Creatinine Ratio 14.3, Glucose 95, Calcium 7.7 L Current Medications Carvedilol (Coreg) 3.125 mg PO BID [facility] Last Admin: 08/19/17 09:44 Dose: 3.125 mg Enoxaparin Sodium (Lovenox) 40 mg SC DAILY@0600 [facility] Last Admin: 08/19/17 05:55 Dose: 40 mg Famotidine (Pepcid) 40 mg PO DAILY [facility] Last Admin: 08/19/17 09:44 Dose: 40 mg Heparin Sodium (Beef Lung) (Heparin 500 Unit/5 Ml (100/Ml)) 500 unit IV UD PRN PRN Reason: HEPARIN FLUSH Piperacillin Sod/Tazobactam Sod (Zosyn) 3.375 gm in 50 mls @ 12.5 mls/hr IV Q8 [facility] Last Admin: 08/19/17 05:56 Dose: 12.5 mls/hr Potassium Chloride 40 meq/ (Dextrose) 1,020 mls @ 75 mls/hr IV .[id number] [facility] Last Admin: 08/19/17 11:48 Dose: 75 mls/hr Lisinopril (Zestril) 5 mg PO BID [facility] Last Admin: 08/19/17 09:44 Dose: 5 mg Morphine Sulfate () 2 mg IV Q1H PRN PRN PRN Reason: SEVERE PAIN (6-01/18) Nutritional Formula (Lactose Free) (Ensure Clear) 120 ml PO 4X/DAY [facility] Last Admin: 08/19/17 09:45 Dose: 120 mls Nystatin (Mycostatin) 1 applic TOPICAL BID [facility] PRN Reason: Protocol Last Admin: 08/19/17 09:43 Dose: 1 applicatio Ondansetron HCl (Zofran) 4 mg IV Q6H PRN PRN PRN Reason: NAUSEA/VOMITING Potassium Chloride (K-Dur) 20 meq PO BIDCM [facility] Last Admin: 08/19/17 09:55 Dose: 20 meq Sertraline HCl (Zoloft) 50 mg PO DAILY [facility] Last Admin: 08/19/17 09:44 Dose: 50 mg Sodium Chloride () 5 - 30 ml IV UD PRN PRN Reason: SALINE FLUSH Last Admin: 08/19/17 09:43 Dose: 20 ml Sodium Chloride () 10 ml IV UD PRN PRN Reason: VAD FLUSH Last Admin: 08/19/17 08:07 Dose: 10 ml Vancomycin HCl (Vancomycin 125mg/5ml Susp) 125 mg PO Q6 [facility] Last Admin: 08/19/17 11:52 Dose: 125 mg Medical Necessity - Tobacco Use Smoking Status: Never smoker Assessment/Plan Active and Suspected Problems (Last Reviewed 06/03/17 @ 11:43 by Kitty Mckay) Diarrhea (Acute) Secondary to chemotherapy Perforation bowel (Acute) Microperforation Hypokalemia, gastrointestinal losses (Acute) secondary to chemotherapy This is a 67-year-old female with history of right-sided colon cancer , stage III diagnosed in May 02, 2017 status post laparoscopic right hemicolectomy on adjuvant chemotherapy in May with FOLFOX was admitted with diarrhea about 3-5 times daily after chemotherapy last week. She was admitted with nausea, vomiting, abdominal pain and diarrhea and went to [facility] ER where she was diagnosed with a small area of focal bowel perforation with pneumatosis coli. She also had hypokalemia, moderate anemia and leukopenia and transferred to [facility] for further care and management. Patient is being seen by Dr. Quintero and Dr. Israel. #1 C. difficile colitis-patient's IV Flagyl was discontinued, patient is on oral vancomycin. #2 hypokalemia-probably secondary to diarrhea, on potassium replacement. #3 mitral valve insufficiency-mild #4 pulmonary hypertension-moderate #5 tricuspid insufficiency-mild to moderate #6 recently diagnosed colon cancer with right hemicolectomy #7 microperforation of the colon-currently being managed with IV Zosyn, surgical management as by Dr. Quintero. On clear liquid diet. #8 Pancytopenia with anemia of chronic disease due to colon Ca and chemotherapy : Patient has anemia, hemoglobin 8.9 g percent, mild thrombocytopenia, 125,000 and leukopenia 3.5 thousand. Watch for thrombocytopenia and anemia on Lovenox. Monitor CBC. Microbiology Past 72 Hours 08/18/17 11:30 Stool C. difficile DNA Amplification - Final Toxigenic C. difficile DNA Laboratory Results 08/18/17 22:54: Potassium 3.9 08/19/17 06:00: WBC 3.5 L, RBC 2.64 L, Hgb 8.9 L, Hct 26.5 L, MCV 100.4 H, MCH 33.7 H, MCHC 33.6, RDW 20.5 H, RDW Differential 72.4 H, Plt Count 125 L, MPV 10.6, Immature Gran % (Auto) 0.300, Neut % (Auto) 67.0, Lymph % (Auto) 20.5, [place] % (Auto) 10.5 H, Eos % (Auto) 1.1, Baso % (Auto) 0.6, Absolute Neuts (auto ) 2.4, Absolute Lymphs (auto) 0.72 L, Total Counted Not Reportable, Differential Comment SCAN, Anisocytosis 1+, Macrocytosis 1+ 08/19/17 06:00: Sodium 144, Potassium 3.4 L, Chloride 113 H, Carbon Dioxide 24.0 , Anion Gap 7, BUN 11, Creatinine 0.77, Estim Creat Clear Calc 47.14, Est GFR ( MDRD) Af Amer 96, Est GFR (MDRD) Non-Af 79, BUN/Creatinine Ratio 14.3, Glucose 95, Calcium 7.7 L Code Visit Inpatient E&M: 21732 Subs Hosp L2
[2017-08-19 14:00] VITALS: BP 114/76; PULSE 84; RESP 18; TEMP 37.2; O2SAT 98
--- NOTE | 2017-08-19 17:13 | PCM.PN.BLA ---
Progress Note Patient feeling much improved. CT scan - no evidence of perforation Plan: advance to regular diet will d/c back to residential tomorrow
[2017-08-19 19:38] VITALS: BP 121/73; PULSE 79; RESP 18; TEMP 37; O2SAT 97
[2017-08-20 01:59] VITALS: BP 130/69; PULSE 73; RESP 18; TEMP 36.8; O2SAT 94
[2017-08-20] MEDS: Piperacil/Tazobactam 3.375 GM/50 ML ML IV (05:56)
[2017-08-20] MEDS: Enoxaparin 40 MG/0.4 ML Syringe SC (05:56)
[2017-08-20 06:18] LABS: Absolute Lymphocyte Count 0.71 X10^3/ul (0.83-4.51); Basophil# 0.01 X10^3/uL; Basophil% 0.3 % (0-1); Eosinophil# 0.06 X10^3/uL; Eosinophils% 1.9 % (0-5); Hematocrit 29.3 % (37-47); Hemoglobin 9.6 g/dl (12.0-15.0); Lymphocyte # 0.71 X10^3/ul (4.0); Lymphocyte % 22.6 % (19-41); Mean Corp Hgb Conc 32.8 g/gl (32-36); Mean Corpuscular Volume 100.7 fL (81-99); Mean Platelet Vol. 9.6 fl (6.2-12.0); Monocyte% 12.7 % (0-10); Neutrophil # 1.96 X10^3/uL (2.7-7.7); Neutrophil % 62.5 % (47-70); Platelet Count 137 K/mm3 (150-450); RBC Distribution Width CV 20.6 % (11.6-14.6); RBC Distribution Width SD 72.8 fl (35.1-43.9); Red Blood Count 2.91 M/mm3 (4.2-5.4); White Blood Count 3.1 K/mm3 (4.4-11.0)
[2017-08-20 06:23] LABS: Differential Indicated SCAN CRITERIA MET; POSITIVE COUNT NO; POSITIVE DIFFERENTIAL NO; POSITIVE MORPHOLOGY YES
[2017-08-20 06:31] LABS: Anion Gap 5 (5-15); BUN 6 mg/dL (7-18); BUN/Creat Ratio 7.5 RATIO (10-20); Calcium,Total 7.8 mg/dL (8.5-10.1); Chloride 113 mmol/L (98-107); EST Glomerular Filtration Rate 76 mL/min (>60); Est Glom Filt Rate - Afr Amer 92 mL/min (>60); Estimated Creatinine Clearance 58.93 ml/min; Glucose 137 mg/dL (74-106); Sodium Level 143 mmol/L (136-145)
[2017-08-20 06:38] LABS: Anisocytosis 1+; Differential Comment SCAN; Macrocytosis 1+
[2017-08-20 07:55] VITALS: BP 133/85; PULSE 87; RESP 16; TEMP 37.2; O2SAT 98
--- NOTE | 2017-08-20 08:37 | CASEMGMT ---
As per RN and Dr. Quintero's note yesterday, pt may be able to be discharged today. SW called [facility] and let them know pt may return today. SW placed green sheet on chart w/transfer to extended care forms in event surgeon would prefer to fill them out on paper rather than in computer. Transport forms are also on the chart. VANESA Valentin, CIRCULATION WORKER
--- NOTE | 2017-08-20 09:07 | PCM.PN.HOSP ---
Subjective: Patient tolerated regular diet. No tachycardia no fever. Patient had bowel movement semisolid to soft liquid consistency Vitals/I&O's: Vital Signs Temp Pulse Resp BP Pulse Ox 98.9 F 87 16 133/85 H 98 08/20/17 07:55 08/20/17 07:55 08/20/17 07:55 08/20/17 07:55 08/20/17 07:55 Oxygen Delivery Method Room Air Weight: 122 lb 12.76 oz Body Mass Index (BMI) 21.0 Intake and Output for Last 24 Hours 08/18/17 08/19/17 08/20/17 23:59 23:59 23:59 Intake Total 3321.6 / 3321.6 2063.9 / 2063.9 753 / 753 Balance 3321.6 / 3321.6 2063.9 / 2063.9 753 / 753 General: Alert, Oriented x3, Cooperative HEENT: Atraumatic, PERRLA, EOMI, Normocephalic Neck: Supple, No JVD, Negative Carotid Bruits, - - Right subclavian port Lungs: Clear to auscultation, No rhonchi, No wheeze, Diminished Cardiovascular: Regular rate, Normal S1, Normal S2, No murmurs Abdomen: Bowel Sounds Present, Soft, Non Tender, Non-Distended Extremities: No edema, Capillary Refill Less than 3 Seconds Skin: No rashes, No breakdown Musculoskeletal: No Tenderness to Palpation of Joints or Extremities, Arthritic Changes, Muscle Wasting Neurological: Cranial nerves II-XII grossly intact Psych/Mental Status: Normal Affect, Appropriate Microbiology Past 72 Hours 08/17/17 20:25 Blood Culture (Wb) - Anticubital Left Blood Culture - Preliminary No growth in 48 hours. 08/17/17 20:31 Blood Culture (Wb) - Left Forearm Blood Culture - Preliminary No growth in 48 hours. 08/18/17 11:30 Stool C. difficile DNA Amplification - Final Toxigenic C. difficile DNA Laboratory Results 08/20/17 06:03: WBC 3.1 L, RBC 2.91 L, Hgb 9.6 L, Hct 29.3 L, MCV 100.7 H, MCH 33.0 H, MCHC 32.8, RDW 20.6 H, RDW Differential 72.8 H, Plt Count 137 L, MPV 9.6, Immature Gran % (Auto) 0.000, Neut % (Auto) 62.5, Lymph % (Auto) 22.6, [place] % (Auto) 12.7 H, Eos % (Auto) 1.9, Baso % (Auto) 0.3, Absolute Neuts (auto) 2.0, Absolute Lymphs (auto) 0.71 L, Total Counted Not Reportable, Differential Comment SCAN, Anisocytosis 1+, Macrocytosis 1+ 08/20/17 06:03: Sodium 143, Potassium 4.0, Chloride 113 H, Carbon Dioxide 25.0, Anion Gap 5, BUN 6 L, Creatinine 0.80, Estim Creat Clear Calc 58.93, Est GFR (MDRD) Af Amer 92, Est GFR (MDRD) Non-Af 76, BUN/Creatinine Ratio 7.5 L, Glucose 137 H, Calcium 7.8 L, Magnesium 2.0 Current Medications Carvedilol (Coreg) 3.125 mg PO BID [facility] Last Admin: 08/19/17 22:46 Dose: 3.125 mg Enoxaparin Sodium (Lovenox) 40 mg SC DAILY@0600 [facility] Last Admin: 08/20/17 05:56 Dose: 40 mg Famotidine (Pepcid) 40 mg PO DAILY [facility] Last Admin: 08/19/17 09:44 Dose: 40 mg Heparin Sodium (Beef Lung) (Heparin 500 Unit/5 Ml (100/Ml)) 500 unit IV UD PRN PRN Reason: HEPARIN FLUSH Piperacillin Sod/Tazobactam Sod (Zosyn) 3.375 gm in 50 mls @ 12.5 mls/hr IV Q8 [facility] Last Admin: 08/20/17 05:56 Dose: 12.5 mls/hr Potassium Chloride 40 meq/ (Dextrose) 1,020 mls @ 75 mls/hr IV .[id number] [facility] Last Admin: 08/20/17 00:48 Dose: 75 mls/hr Lisinopril (Zestril) 5 mg PO BID [facility] Last Admin: 08/19/17 22:46 Dose: 5 mg Morphine Sulfate () 2 mg IV Q1H PRN PRN PRN Reason: SEVERE PAIN (6-10/10) Nutritional Formula (Lactose Free) (Ensure Clear) 120 ml PO 4X/DAY [facility] Last Admin: 08/19/17 22:46 Dose: 120 mls Nystatin (Mycostatin) 1 applic TOPICAL BID [facility] PRN Reason: Protocol Last Admin: 08/19/17 22:49 Dose: 1 applicatio Ondansetron HCl (Zofran) 4 mg IV Q6H PRN PRN PRN Reason: NAUSEA/VOMITING Potassium Chloride (K-Dur) 20 meq PO TID [facility] Last Admin: 08/20/17 05:56 Dose: 20 meq Sertraline HCl (Zoloft) 50 mg PO DAILY [facility] Last Admin: 08/19/17 09:44 Dose: 50 mg Sodium Chloride () 5 - 30 ml IV UD PRN PRN Reason: SALINE FLUSH Last Admin: 08/19/17 09:43 Dose: 20 ml Sodium Chloride () 10 ml IV UD PRN PRN Reason: VAD FLUSH Last Admin: 08/19/17 08:07 Dose: 10 ml Vancomycin HCl (Vancomycin 125mg/5ml Susp) 125 mg PO Q6 [facility] Last Admin: 08/20/17 05:56 Dose: 125 mg Medical Necessity - Tobacco Use Smoking Status: Never smoker Assessment/Plan This is a 67-year-old female with history of right-sided colon cancer, stage III diagnosed in May 02, 2017 status post laparoscopic right hemicolectomy on adjuvant chemotherapy in May with FOLFOX was admitted with diarrhea about 3-5 times daily after chemotherapy last week. She was admitted with nausea, vomiting, abdominal pain and diarrhea and went to [facility] ER where she was diagnosed with a small area of focal bowel perforation with pneumatosis coli. She also had hypokalemia, moderate anemia and leukopenia and transferred to [facility] for further care and management. Patient is being seen by Dr. Quintero and Dr. Israel. #1 C. difficile colitis-patient's IV Flagyl was discontinued, patient is on oral vancomycin. Patient is being discharged on oral vancomycin #2 hypokalemia-probably secondary to diarrhea, on potassium replacement. #3 mitral valve insufficiency-mild #4 pulmonary hypertension-moderate #5 tricuspid insufficiency-mild to moderate #6 recently diagnosed colon cancer with right hemicolectomy #7 microperforation of the colon-currently being managed with IV Zosyn, surgical management as by Dr. Quintero. Patient tolerated regular diet. Does not need IV antibiotic and Zosyn discontinued #8 Pancytopenia with anemia of chronic disease due to colon Ca and chemotherapy: Patient has anemia, hemoglobin 8.9 g percent, mild thrombocytopenia, 125,000 and leukopenia 3.5 thousand. Watch for thrombocytopenia and anemia on Lovenox. H&H and platelet count are stable. WBC 2100th as mentioned below. Patient is is stable to be discharged to assisted living center. Hospitalist service signed off. Microbiology Past 72 Hours 08/17/17 20:25 Blood Culture (Wb) - Anticubital Left Blood Culture - Preliminary No growth in 48 hours. 08/17/17 20:31 Blood Culture (Wb) - Left Forearm Blood Culture - Preliminary No growth in 48 hours. 08/18/17 11:30 Stool C. difficile DNA Amplification - Final Toxigenic C. difficile DNA Laboratory Results 08/20/17 06:03: WBC 3.1 L, RBC 2.91 L, Hgb 9.6 L, Hct 29.3 L, MCV 100.7 H, MCH 33.0 H, MCHC 32.8, RDW 20.6 H, RDW Differential 72.8 H, Plt Count 137 L, MPV 9.6, Immature Gran % (Auto) 0.000, Neut % (Auto) 62.5, Lymph % (Auto) 22.6, [place] % (Auto) 12.7 H, Eos % (Auto) 1.9, Baso % (Auto) 0.3, Absolute Neuts (auto) 2.0, Absolute Lymphs (auto) 0.71 L, Total Counted Not Reportable, Differential Comment SCAN, Anisocytosis 1+, Macrocytosis 1+ 08/20/17 06:03: Sodium 143, Potassium 4.0, Chloride 113 H, Carbon Dioxide 25.0, Anion Gap 5, BUN 6 L, Creatinine 0.80, Estim Creat Clear Calc 58.93, Est GFR (MDRD) Af Amer 92, Est GFR (MDRD) Non-Af 76, BUN/Creatinine Ratio 7.5 L, Glucose 137 H, Calcium 7.8 L, Magnesium 2.0 Clinical Impression(s) from Imaging Studies Abdomen/Pelvis CT 08/19/17 06:51 IMPRESSION: Nonspecific gas pattern. Distended gallbladder with either sludge or multiple tiny gallstones within the gallbladder lumen. Electronically Signed: Duran Steven MD at 9:11 EDT Tel [phone], Service support , Active Medications Carvedilol (Coreg) 3.125 mg PO BID [facility] Last Admin: 08/19/17 22:46 Dose: 3.125 mg Enoxaparin Sodium (Lovenox) 40 mg SC DAILY@0600 [facility] Last Admin: 08/20/17 05:56 Dose: 40 mg Famotidine (Pepcid) 40 mg PO DAILY [facility] Last Admin: 08/19/17 09:44 Dose: 40 mg Heparin Sodium (Beef Lung) (Heparin 500 Unit/5 Ml (100/Ml)) 500 unit IV UD PRN PRN Reason: HEPARIN FLUSH Piperacillin Sod/Tazobactam Sod (Zosyn) 3.375 gm in 50 mls @ 12.5 mls/hr IV Q8 [facility] Last Admin: 08/20/17 05:56 Dose: 12.5 mls/hr Potassium Chloride 40 meq/ (Dextrose) 1,020 mls @ 75 mls/hr IV .[id number] [facility] Last Admin: 08/20/17 00:48 Dose: 75 mls/hr Lisinopril (Zestril) 5 mg PO BID [facility] Last Admin: 08/19/17 22:46 Dose: 5 mg Morphine Sulfate () 2 mg IV Q1H PRN PRN PRN Reason: SEVERE PAIN (6-1010) Nutritional Formula (Lactose Free) (Ensure Clear) 120 ml PO 4X/DAY [facility] Last Admin: 08/19/17 22:46 Dose: 120 mls Nystatin (Mycostatin) 1 applic TOPICAL BID [facility] PRN Reason: Protocol Last Admin: 08/19/17 22:49 Dose: 1 applicatio Ondansetron HCl (Zofran) 4 mg IV Q6H PRN PRN PRN Reason: NAUSEA/VOMITING Potassium Chloride (K-Dur) 20 meq PO TID [facility] Last Admin: 08/20/17 05:56 Dose: 20 meq Sertraline HCl (Zoloft) 50 mg PO DAILY [facility] Last Admin: 08/19/17 09:44 Dose: 50 mg Sodium Chloride () 5 - 30 ml IV UD PRN PRN Reason: SALINE FLUSH Last Admin: 08/19/17 09:43 Dose: 20 ml Sodium Chloride () 10 ml IV UD PRN PRN Reason: VAD FLUSH Last Admin: 08/19/17 08:07 Dose: 10 ml Vancomycin HCl (Vancomycin 125mg/5ml Susp) 125 mg PO Q6 [facility] Last Admin: 08/20/17 05:56 Dose: 125 mg Code Visit Inpatient E&M: 59759 Subs Hosp L2
[2017-08-20] MEDS: Sertraline 50 MG Tablet PO (09:10)
[2017-08-20] MEDS: Lisinopril 5 MG Tablet PO (09:10)
[2017-08-20] MEDS: Carvedilol 3.125 MG TABLET PO (09:10)
[2017-08-20] MEDS: Famotidine 20 MG Tablet 40 MG PO (09:10)
[2017-08-20] MEDS: Nystatin Ointment 1 APPLIC TOPICAL (09:11)
--- NOTE | 2017-08-20 10:23 | PN.SURG_ITS ---
Patient Problems: Active and Suspected Problems (Last Reviewed 06/03/17 @ 11:43 by Kitty Mckay) Diarrhea (Acute) Secondary to chemotherapy Perforation bowel (Acute) Microperforation Hypokalemia, gastrointestinal losses (Acute) secondary to chemotherapy Subjective: Patient denies abdominal pain, no longer has fecal urgency of diarrhea, tolerating diet - Physical Exam General: Alert, Oriented x3 Oral: Moist Mucosa Neck: Supple Abdomen: Bowel Sounds Present, Soft, Non Tender Vital Signs Temp Pulse Resp BP Pulse Ox 98.9 F 87 16 133/85 H 98 08/20/17 07:55 08/20/17 07:55 08/20/17 07:55 08/20/17 07:55 08/20/17 07:55 Oxygen Delivery Method Room Air Weight: 55.7 kg Body Mass Index (BMI) 21.0 Intake and Output for Last 24 Hours 08/18/17 08/19/17 08/20/17 23:59 23:59 23:59 Intake Total 3321.6 / 3321.6 2063.9 / 2063.9 753 / 753 Balance 3321.6 / 3321.6 2063.9 / 2063.9 753 / 753 Microbiology Past 72 Hours 08/17/17 20:25 Blood Culture - Preliminary Blood Culture (Wb) - Anticubital Left No growth in 48 hours. 08/17/17 20:31 Blood Culture - Preliminary Blood Culture (Wb) - Left Forearm No growth in 48 hours. 08/18/17 11:30 C. difficile DNA Amplification - Final Stool Toxigenic C. difficile DNA Laboratory Tests Past 24 Hrs 08/20/17 08/20/17 06:03 06:03 WBC 3.1 L RBC 2.91 L Hgb 9.6 L Hct 29.3 L MCV 100.7 H MCH 33.0 H MCHC 32.8 RDW 20.6 H RDW Differential 72.8 H Plt Count 137 L MPV 9.6 Immature Gran % (Auto) 0.000 Neut % (Auto) 62.5 Lymph % (Auto) 22.6 [place] % (Auto) 12.7 H Eos % (Auto) 1.9 Baso % (Auto) 0.3 Absolute Neuts (auto) 2.0 Absolute Lymphs (auto) 0.71 L Total Counted Not Reportable Differential Comment SCAN Anisocytosis 1+ Macrocytosis 1+ Sodium 143 Potassium 4.0 Chloride 113 H Carbon Dioxide 25.0 Anion Gap 5 BUN 6 L Creatinine 0.80 Estim Creat Clear Calc 58.93 Est GFR (MDRD) Af Amer 92 Est GFR (MDRD) Non-Af 76 BUN/Creatinine Ratio 7.5 L Glucose 137 H Calcium 7.8 L Magnesium 2.0 Medical Necessity - Tobacco Use Smoking Status: Never smoker Assessment/Plan Active and Suspected Problems (Last Reviewed 06/03/17 @ 11:43 by Kitty Mckay) Diarrhea (Acute) Secondary to chemotherapy Perforation bowel (Acute) Microperforation Hypokalemia, gastrointestinal losses (Acute) secondary to chemotherapy Impression: pneumatosis coli severe diarrhea - c diff positive abdominal pain- resolved, CT scan - no longer with perforation Discussion/Plan: patient clinically improved continue po vancomycin as outpatient
--- NOTE | 2017-08-20 10:23 | PCM.DC.BLA ---
Discharge Summary Date of Admission: 08/17/17 Date of Discharge: 08/20/17 Summary: Raquel Allan is a 67 y/o WF with history of Stage III colon cancer, s/p laparoscopic right hemicolectomy. Undergoing chemotherapy by Dr. Israel. Presented to ED at [facility] with abdominal pain, N/V, diarrhea. CT scan revealed pneumatosis coli and localized free air. Patient transferred to [facility] for further care. Initially placed on Zosyn and flagyl IV and bowel rest. Stool cultures revealed C diff positive. Treated with po vancomycin. Patient's symptoms resolved. Repeat CT scan revealed no pneumatosis coli or free air. Patient discharged to [place]. Discharged on po vancomycin for 10 days - 125 mg every 6 hours. Follow up as outpatient with Dr. Israel. Final diagnosis: C difficile colitis
--- NOTE | 2017-08-20 10:27 | DS.PCM_ITS ---
Discharge Summary Date of Admission: 08/17/17 Date of Discharge: 08/20/17 Summary: Raquel Allan is a 67 y/o WF with history of Stage III colon cancer, s/p laparoscopic right hemicolectomy. Undergoing chemotherapy by Dr. Israel. Presented to ED at [facility] with abdominal pain, N/V, diarrhea. CT scan revealed pneumatosis coli and localized free air. Patient transferred to [facility] for further care. Initially placed on Zosyn and flagyl IV and bowel rest. Stool cultures revealed C diff positive. Treated with po vancomycin. Patient's symptoms resolved. Repeat CT scan revealed no pneumatosis coli or free air. Patient discharged to [place]. Discharged on po vancomycin for 10 days - 125 mg every 6 hours. Follow up as outpatient with Dr. Israel. Final diagnosis: C difficile colitis
--- NOTE | 2017-08-20 10:28 | DCINST_ITS ---
Discharge Diet: No Restrictions Discharge Activity: Return to Normal Activity Allergies/Adverse Reactions: Allergies latex Allergy (Verified 08/17/17 18:35) Rash Medications to take at Discharge Acetaminophen [Tylenol] 650 mg PO Q6H PRN PRN 08/17/17 Carvedilol [Coreg (Beta Salomon)] 3.125 mg PO BID 08/17/17 Famotidine [Pepcid] 40 mg PO DAILY 08/17/17 Ferrous Sulfate 325 mg PO BIDCM 08/17/17 Furosemide [Lasix] 40 mg PO DAILY 08/17/17 Guaifenesin [Mucinex] 600 mg PO BID 08/17/17 Lisinopril [Zestril] 5 mg PO BID 08/17/17 Loperamide HCl [Imodium A-D] 2 mg PO Q4H PRN PRN 08/17/17 Sertraline HCl [Zoloft] 50 mg PO DAILY 08/17/17 Sodium Chloride [Saline Nasal [place]] 1 spray NASAL DAILY PRN 08/17/17 Vancomcyin 125 MG/ 5 ML Susp [Vancomycin 125mg/5mL Susp] 125 mg PO Q6 14 Days # 1 po.syringe 08/20/17 The following prescriptions were given: Vancomcyin 125 MG/ 5 ML Susp [Vancomycin 125mg/5mL Susp] 125 mg PO Q6 14 Days # 1 po.syringe Primary Care Physician: Galina Macdonald MD [Primary Care Provider] -
[2017-08-20] MEDS: 0.9% NaCl Peripheral Flush Adult/Peds IV (11:34)
[2017-08-20 11:45] VITALS: BP 165/91; PULSE 79; RESP 16; TEMP 36.6; O2SAT 98
--- NOTE | 2017-08-20 11:53 | PCM.PN.HOSP ---
Patient Problems: Active and Suspected Problems (Last Reviewed 06/03/17 @ 11:43 by Kitty Mckay) Diarrhea (Acute) Secondary to chemotherapy Perforation bowel (Acute) Microperforation Hypokalemia, gastrointestinal losses (Acute) secondary to chemotherapy Subjective: Patient abdominal pain is much better. Tolerated regular diet. Vitals/I&O's: Vital Signs Temp Pulse Resp BP Pulse Ox 97.8 F 79 16 165/91 H 98 08/20/17 11:45 08/20/17 11:45 08/20/17 11:45 08/20/17 11:45 08/20/17 11:45 Oxygen Delivery Method Room Air Weight: 122 lb 12.76 oz Body Mass Index (BMI) 21.0 Intake and Output for Last 24 Hours 08/18/17 08/19/17 08/20/17 23:59 23:59 23:59 Intake Total 3321.6 / 3321.6 2063.9 / 2063.9 1153 / 1153 Balance 3321.6 / 3321.6 2063.9 / 2063.9 1153 / 1153 General: Alert, Oriented x3, Cooperative HEENT: Atraumatic, PERRLA, EOMI, Normocephalic Neck: Supple, No JVD, Negative Carotid Bruits Lungs: Clear to auscultation, Diminished, - - RIGHT MEDIPORT present. Cardiovascular: Regular rate, Normal S1, Normal S2, No murmurs Abdomen: Bowel Sounds Present, Soft, Non Tender Extremities: No edema, Capillary Refill Less than 3 Seconds Skin: No rashes, No breakdown Musculoskeletal: No Tenderness to Palpation of Joints or Extremities Neurological: Cranial nerves II-XII grossly intact Psych/Mental Status: Normal Affect, Appropriate Microbiology Past 72 Hours 08/17/17 20:25 Blood Culture (Wb) - Anticubital Left Blood Culture - Preliminary No growth in 48 hours. 08/17/17 20:31 Blood Culture (Wb) - Left Forearm Blood Culture - Preliminary No growth in 48 hours. 08/18/17 11:30 Stool C. difficile DNA Amplification - Final Toxigenic C. difficile DNA Laboratory Results 08/20/17 06:03: WBC 3.1 L, RBC 2.91 L, Hgb 9.6 L, Hct 29.3 L, MCV 100.7 H, MCH 33.0 H, MCHC 32.8, RDW 20.6 H, RDW Differential 72.8 H, Plt Count 137 L, MPV 9.6, Immature Gran % (Auto) 0.000, Neut % (Auto) 62.5, Lymph % (Auto) 22.6, [place] % (Auto) 12.7 H, Eos % (Auto) 1.9, Baso % (Auto) 0.3, Absolute Neuts (auto) 2.0, Absolute Lymphs (auto) 0.71 L, Total Counted Not Reportable, Differential Comment SCAN, Anisocytosis 1+, Macrocytosis 1+ 08/20/17 06:03: Sodium 143, Potassium 4.0, Chloride 113 H, Carbon Dioxide 25.0, Anion Gap 5, BUN 6 L, Creatinine 0.80, Estim Creat Clear Calc 58.93, Est GFR (MDRD) Af Amer 92, Est GFR (MDRD) Non-Af 76, BUN/Creatinine Ratio 7.5 L, Glucose 137 H, Calcium 7.8 L, Magnesium 2.0 Current Medications Carvedilol (Coreg) 3.125 mg PO BID [facility] Last Admin: 08/20/17 09:10 Dose: 3.125 mg Enoxaparin Sodium (Lovenox) 40 mg SC DAILY@0600 [facility] Last Admin: 08/20/17 05:56 Dose: 40 mg Famotidine (Pepcid) 40 mg PO DAILY [facility] Last Admin: 08/20/17 09:10 Dose: 40 mg Heparin Sodium (Beef Lung) (Heparin 500 Unit/5 Ml (100/Ml)) 500 unit IV UD PRN PRN Reason: HEPARIN FLUSH Last Admin: 08/20/17 11:33 Dose: 500 unit Potassium Chloride 40 meq/ (Dextrose) 1,020 mls @ 75 mls/hr IV .[id number] [facility] Last Admin: 08/20/17 00:48 Dose: 75 mls/hr Lisinopril (Zestril) 5 mg PO BID [facility] Last Admin: 08/20/17 09:10 Dose: 5 mg Morphine Sulfate () 2 mg IV Q1H PRN PRN PRN Reason: SEVERE PAIN (6-10/10) Nutritional Formula (Lactose Free) (Ensure Clear) 120 ml PO 4X/DAY [facility] Last Admin: 08/20/17 09:11 Dose: Not Given Nystatin (Mycostatin) 1 applic TOPICAL BID [facility] PRN Reason: Protocol Last Admin: 08/20/17 09:11 Dose: 1 applicatio Ondansetron HCl (Zofran) 4 mg IV Q6H PRN PRN PRN Reason: NAUSEA/VOMITING Potassium Chloride (K-Dur) 20 meq PO TID [facility] Last Admin: 08/20/17 05:56 Dose: 20 meq Sertraline HCl (Zoloft) 50 mg PO DAILY [facility] Last Admin: 08/20/17 09:10 Dose: 50 mg Sodium Chloride () 5 - 30 ml IV UD PRN PRN Reason: SALINE FLUSH Last Admin: 08/20/17 11:34 Dose: 10 ml Sodium Chloride () 10 ml IV UD PRN PRN Reason: VAD FLUSH Last Admin: 08/19/17 08:07 Dose: 10 ml Vancomycin HCl (Vancomycin 125mg/5ml Susp) 125 mg PO Q6 [facility] Last Admin: 08/20/17 11:33 Dose: 125 mg Medical Necessity - Tobacco Use Smoking Status: Never smoker Assessment/Plan Active and Suspected Problems (Last Reviewed 06/03/17 @ 11:43 by Kitty Mckay) Diarrhea (Acute) Secondary to chemotherapy Perforation bowel (Acute) Microperforation Hypokalemia, gastrointestinal losses (Acute) secondary to chemotherapy This is a 67-year-old female with history of right-sided colon cancer, stage III diagnosed in May 02, 2017 status post laparoscopic right hemicolectomy on adjuvant chemotherapy in May with FOLFOX was admitted with diarrhea about 3-5 times daily after chemotherapy last week. She was admitted with nausea, vomiting, abdominal pain and diarrhea and went to [facility] ER where she was diagnosed with a small area of focal bowel perforation with pneumatosis coli. She also had hypokalemia, moderate anemia and leukopenia and transferred to [facility] for further care and management. Patient is being seen by Dr. Quintero and Dr. Israel. #1 C. difficile colitis-patient's IV Flagyl was discontinued, patient is on oral vancomycin. The patient is being discharged today on oral vancomycin. #2 hypokalemia-probably secondary to diarrhea, on potassium replacement. Case corrected 4.0. #3 mitral valve insufficiency-mild #4 pulmonary hypertension-moderate #5 tricuspid insufficiency-mild to moderate #6 recently diagnosed colon cancer with right hemicolectomy #7 microperforation of the colon-currently being managed with IV Zosyn, surgical management as by Dr. Quintero. Patient tolerated regular diet. Does not need IV Zosyn. #8 Pancytopenia with anemia of chronic disease due to colon Ca and chemotherapy: Patient has anemia, hemoglobin 8.9 g percent, mild thrombocytopenia, 125,000 and leukopenia 3.5 thousand. Hemoglobin 9.6. Platelet count 137 The patient is being discharged to assisted living center. Hospitalist team will sign off. Patient is being discharged by Dr. Quintero Microbiology Past 72 Hours 08/17/17 20:25 Blood Culture (Wb) - Anticubital Left Blood Culture - Preliminary No growth in 48 hours. 08/17/17 20:31 Blood Culture (Wb) - Left Forearm Blood Culture - Preliminary No growth in 48 hours. 08/18/17 11:30 Stool C. difficile DNA Amplification - Final Toxigenic C. difficile DNA Laboratory Results 08/20/17 06:03: WBC 3.1 L, RBC 2.91 L, Hgb 9.6 L, Hct 29.3 L, MCV 100.7 H, MCH 33.0 H, MCHC 32.8, RDW 20.6 H, RDW Differential 72.8 H, Plt Count 137 L, MPV 9.6, Immature Gran % (Auto) 0.000, Neut % (Auto) 62.5, Lymph % (Auto) 22.6, [place] % (Auto) 12.7 H, Eos % (Auto) 1.9, Baso % (Auto) 0.3, Absolute Neuts (auto) 2.0, Absolute Lymphs (auto) 0.71 L, Total Counted Not Reportable, Differential Comment SCAN, Anisocytosis 1+, Macrocytosis 1+ 08/20/17 06:03: Sodium 143, Potassium 4.0, Chloride 113 H, Carbon Dioxide 25.0, Anion Gap 5, BUN 6 L, Creatinine 0.80, Estim Creat Clear Calc 58.93, Est GFR (MDRD) Af Amer 92, Est GFR (MDRD) Non-Af 76, BUN/Creatinine Ratio 7.5 L, Glucose 137 H, Calcium 7.8 L, Magnesium 2.0 Clinical Impression(s) from Imaging Studies Abdomen/Pelvis CT 08/19/17 06:51 IMPRESSION: Nonspecific gas pattern. Distended gallbladder with either sludge or multiple tiny gallstones within the gallbladder lumen. Electronically Signed: Duran Steven MD at 9:11 EDT Tel [phone], Service support , Active Medications Carvedilol (Coreg) 3.125 mg PO BID [facility] Last Admin: 08/20/17 09:10 Dose: 3.125 mg Enoxaparin Sodium (Lovenox) 40 mg SC DAILY@0600 [facility] Last Admin: 08/20/17 05:56 Dose: 40 mg Famotidine (Pepcid) 40 mg PO DAILY [facility] Last Admin: 08/20/17 09:10 Dose: 40 mg Heparin Sodium (Beef Lung) (Heparin 500 Unit/5 Ml (100/Ml)) 500 unit IV UD PRN PRN Reason: HEPARIN FLUSH Last Admin: 08/20/17 11:33 Dose: 500 unit Potassium Chloride 40 meq/ (Dextrose) 1,020 mls @ 75 mls/hr IV .[id number] [facility] Last Admin: 08/20/17 00:48 Dose: 75 mls/hr Lisinopril (Zestril) 5 mg PO BID [facility] Last Admin: 08/20/17 09:10 Dose: 5 mg Morphine Sulfate () 2 mg IV Q1H PRN PRN PRN Reason: SEVERE PAIN (6-1010) Nutritional Formula (Lactose Free) (Ensure Clear) 120 ml PO 4X/DAY [facility] Last Admin: 08/20/17 09:11 Dose: Not Given Nystatin (Mycostatin) 1 applic TOPICAL BID [facility] PRN Reason: Protocol Last Admin: 08/20/17 09:11 Dose: 1 applicatio Ondansetron HCl (Zofran) 4 mg IV Q6H PRN PRN PRN Reason: NAUSEA/VOMITING Potassium Chloride (K-Dur) 20 meq PO TID [facility] Last Admin: 08/20/17 05:56 Dose: 20 meq Sertraline HCl (Zoloft) 50 mg PO DAILY [facility] Last Admin: 08/20/17 09:10 Dose: 50 mg Sodium Chloride () 5 - 30 ml IV UD PRN PRN Reason: SALINE FLUSH Last Admin: 08/20/17 11:34 Dose: 10 ml Sodium Chloride () 10 ml IV UD PRN PRN Reason: VAD FLUSH Last Admin: 08/19/17 08:07 Dose: 10 ml Vancomycin HCl (Vancomycin 125mg/5ml Susp) 125 mg PO Q6 [facility] Last Admin: 08/20/17 11:33 Dose: 125 mg Code Visit Inpatient E&M: 68669 Subs Hosp L2
--- NOTE | 2017-08-20 12:00 | PN_ITS ---
Patient Problems: Active and Suspected Problems (Last Reviewed 06/03/17 @ 11:43 by Kitty Mckay) Diarrhea (Acute) Secondary to chemotherapy Perforation bowel (Acute) Microperforation Hypokalemia, gastrointestinal losses (Acute) secondary to chemotherapy Subjective: Patient abdominal pain is much better. Tolerated regular diet. Vitals/I&O's: Vital Signs Temp Pulse Resp BP Pulse Ox 97.8 F 79 16 165/91 H 98 08/20/17 11:45 08/20/17 11:45 08/20/17 11:45 08/20/17 11:45 08/20/17 11:45 Oxygen Delivery Method Room Air Weight: 122 lb 12.76 oz Body Mass Index (BMI) 21.0 Intake and Output for Last 24 Hours 08/18/17 08/19/17 08/20/17 23:59 23:59 23:59 Intake Total 3321.6 / 3321.6 2063.9 / 2063.9 1153 / 1153 Balance 3321.6 / 3321.6 2063.9 / 2063.9 1153 / 1153 General: Alert, Oriented x3, Cooperative HEENT: Atraumatic, PERRLA, EOMI, Normocephalic Neck: Supple, No JVD, Negative Carotid Bruits Lungs: Clear to auscultation, Diminished, - - RIGHT MEDIPORT present. Cardiovascular: Regular rate, Normal S1, Normal S2, No murmurs Abdomen: Bowel Sounds Present, Soft, Non Tender Extremities: No edema, Capillary Refill Less than 3 Seconds Skin: No rashes, No breakdown Musculoskeletal: No Tenderness to Palpation of Joints or Extremities Neurological: Cranial nerves II-XII grossly intact Psych/Mental Status: Normal Affect, Appropriate Microbiology Past 72 Hours 08/17/17 20:25 Blood Culture (Wb) - Anticubital Left Blood Culture - Preliminary No growth in 48 hours. 08/17/17 20:31 Blood Culture (Wb) - Left Forearm Blood Culture - Preliminary No growth in 48 hours. 08/18/17 11:30 Stool C. difficile DNA Amplification - Final Toxigenic C. difficile DNA Laboratory Results 08/20/17 06:03: WBC 3.1 L, RBC 2.91 L, Hgb 9.6 L, Hct 29.3 L, MCV 100.7 H, MCH 33.0 H, MCHC 32.8, RDW 20.6 H, RDW Differential 72.8 H, Plt Count 137 L, MPV 9.6 , Immature Gran % (Auto) 0.000, Neut % (Auto) 62.5, Lymph % (Auto) 22.6, [place] % (Auto) 12.7 H, Eos % (Auto) 1.9, Baso % (Auto) 0.3, Absolute Neuts (auto) 2.0, Absolute Lymphs (auto) 0.71 L, Total Counted Not Reportable, Differential Comment SCAN, Anisocytosis 1+, Macrocytosis 1+ 08/20/17 06:03: Sodium 143, Potassium 4.0, Chloride 113 H, Carbon Dioxide 25.0, Anion Gap 5, BUN 6 L, Creatinine 0.80, Estim Creat Clear Calc 58.93, Est GFR ( MDRD) Af Amer 92, Est GFR (MDRD) Non-Af 76, BUN/Creatinine Ratio 7.5 L, Glucose 137 H, Calcium 7.8 L, Magnesium 2.0 Current Medications Carvedilol (Coreg) 3.125 mg PO BID [facility] Last Admin: 08/20/17 09:10 Dose: 3.125 mg Enoxaparin Sodium (Lovenox) 40 mg SC DAILY@0600 [facility] Last Admin: 08/20/17 05:56 Dose: 40 mg Famotidine (Pepcid) 40 mg PO DAILY [facility] Last Admin: 08/20/17 09:10 Dose: 40 mg Heparin Sodium (Beef Lung) (Heparin 500 Unit/5 Ml (100/Ml)) 500 unit IV UD PRN PRN Reason: HEPARIN FLUSH Last Admin: 08/20/17 11:33 Dose: 500 unit Potassium Chloride 40 meq/ (Dextrose) 1,020 mls @ 75 mls/hr IV .[id number] [facility] Last Admin: 08/20/17 00:48 Dose: 75 mls/hr Lisinopril (Zestril) 5 mg PO BID [facility] Last Admin: 08/20/17 09:10 Dose: 5 mg Morphine Sulfate () 2 mg IV Q1H PRN PRN PRN Reason: SEVERE PAIN (6-10/10) Nutritional Formula (Lactose Free) (Ensure Clear) 120 ml PO 4X/DAY [facility] Last Admin: 08/20/17 09:11 Dose: Not Given Nystatin (Mycostatin) 1 applic TOPICAL BID [facility] PRN Reason: Protocol Last Admin: 08/20/17 09:11 Dose: 1 applicatio Ondansetron HCl (Zofran) 4 mg IV Q6H PRN PRN PRN Reason: NAUSEA/VOMITING Potassium Chloride (K-Dur) 20 meq PO TID [facility] Last Admin: 08/20/17 05:56 Dose: 20 meq Sertraline HCl (Zoloft) 50 mg PO DAILY [facility] Last Admin: 08/20/17 09:10 Dose: 50 mg Sodium Chloride () 5 - 30 ml IV UD PRN PRN Reason: SALINE FLUSH Last Admin: 08/20/17 11:34 Dose: 10 ml Sodium Chloride () 10 ml IV UD PRN PRN Reason: VAD FLUSH Last Admin: 08/19/17 08:07 Dose: 10 ml Vancomycin HCl (Vancomycin 125mg/5ml Susp) 125 mg PO Q6 [facility] Last Admin: 08/20/17 11:33 Dose: 125 mg Medical Necessity - Tobacco Use Smoking Status: Never smoker Assessment/Plan Active and Suspected Problems (Last Reviewed 06/03/17 @ 11:43 by Kitty Mckay) Diarrhea (Acute) Secondary to chemotherapy Perforation bowel (Acute) Microperforation Hypokalemia, gastrointestinal losses (Acute) secondary to chemotherapy This is a 67-year-old female with history of right-sided colon cancer , stage III diagnosed in May 02, 2017 status post laparoscopic right hemicolectomy on adjuvant chemotherapy in May with FOLFOX was admitted with diarrhea about 3-5 times daily after chemotherapy last week. She was admitted with nausea, vomiting, abdominal pain and diarrhea and went to [facility] ER where she was diagnosed with a small area of focal bowel perforation with pneumatosis coli. She also had hypokalemia, moderate anemia and leukopenia and transferred to [facility] for further care and management. Patient is being seen by Dr. Quintero and Dr. Israel. #1 C. difficile colitis-patient's IV Flagyl was discontinued, patient is on oral vancomycin. The patient is being discharged today on oral vancomycin. #2 hypokalemia-probably secondary to diarrhea, on potassium replacement. Case corrected 4.0. #3 mitral valve insufficiency-mild #4 pulmonary hypertension-moderate #5 tricuspid insufficiency-mild to moderate #6 recently diagnosed colon cancer with right hemicolectomy #7 microperforation of the colon-currently being managed with IV Zosyn, surgical management as by Dr. Quintero. Patient tolerated regular diet. Does not need IV Zosyn. #8 Pancytopenia with anemia of chronic disease due to colon Ca and chemotherapy : Patient has anemia, hemoglobin 8.9 g percent, mild thrombocytopenia, 125,000 and leukopenia 3.5 thousand. Hemoglobin 9.6. Platelet count 137 The patient is being discharged to assisted living center. Hospitalist team will sign off. Patient is being discharged by Dr. Quintero Microbiology Past 72 Hours 08/17/17 20:25 Blood Culture (Wb) - Anticubital Left Blood Culture - Preliminary No growth in 48 hours. 08/17/17 20:31 Blood Culture (Wb) - Left Forearm Blood Culture - Preliminary No growth in 48 hours. 08/18/17 11:30 Stool C. difficile DNA Amplification - Final Toxigenic C. difficile DNA Laboratory Results 08/20/17 06:03: WBC 3.1 L, RBC 2.91 L, Hgb 9.6 L, Hct 29.3 L, MCV 100.7 H, MCH 33.0 H, MCHC 32.8, RDW 20.6 H, RDW Differential 72.8 H, Plt Count 137 L, MPV 9.6 , Immature Gran % (Auto) 0.000, Neut % (Auto) 62.5, Lymph % (Auto) 22.6, [place] % (Auto) 12.7 H, Eos % (Auto) 1.9, Baso % (Auto) 0.3, Absolute Neuts (auto) 2.0, Absolute Lymphs (auto) 0.71 L, Total Counted Not Reportable, Differential Comment SCAN, Anisocytosis 1+, Macrocytosis 1+ 08/20/17 06:03: Sodium 143, Potassium 4.0, Chloride 113 H, Carbon Dioxide 25.0, Anion Gap 5, BUN 6 L, Creatinine 0.80, Estim Creat Clear Calc 58.93, Est GFR ( MDRD) Af Amer 92, Est GFR (MDRD) Non-Af 76, BUN/Creatinine Ratio 7.5 L, Glucose 137 H, Calcium 7.8 L, Magnesium 2.0 Clinical Impression(s) from Imaging Studies Abdomen/Pelvis CT 08/19/17 06:51 IMPRESSION: Nonspecific gas pattern. Distended gallbladder with either sludge or multiple tiny gallstones within the gallbladder lumen. Electronically Signed: Duran Steven MD at 9:11 EDT Tel [phone], Service support , Active Medications Carvedilol (Coreg) 3.125 mg PO BID [facility] Last Admin: 08/20/17 09:10 Dose: 3.125 mg Enoxaparin Sodium (Lovenox) 40 mg SC DAILY@0600 [facility] Last Admin: 08/20/17 05:56 Dose: 40 mg Famotidine (Pepcid) 40 mg PO DAILY [facility] Last Admin: 08/20/17 09:10 Dose: 40 mg Heparin Sodium (Beef Lung) (Heparin 500 Unit/5 Ml (100/Ml)) 500 unit IV UD PRN PRN Reason: HEPARIN FLUSH Last Admin: 08/20/17 11:33 Dose: 500 unit Potassium Chloride 40 meq/ (Dextrose) 1,020 mls @ 75 mls/hr IV .[id number] [facility] Last Admin: 08/20/17 00:48 Dose: 75 mls/hr Lisinopril (Zestril) 5 mg PO BID [facility] Last Admin: 08/20/17 09:10 Dose: 5 mg Morphine Sulfate () 2 mg IV Q1H PRN PRN PRN Reason: SEVERE PAIN (6-1010) Nutritional Formula (Lactose Free) (Ensure Clear) 120 ml PO 4X/DAY [facility] Last Admin: 08/20/17 09:11 Dose: Not Given Nystatin (Mycostatin) 1 applic TOPICAL BID [facility] PRN Reason: Protocol Last Admin: 08/20/17 09:11 Dose: 1 applicatio Ondansetron HCl (Zofran) 4 mg IV Q6H PRN PRN PRN Reason: NAUSEA/VOMITING Potassium Chloride (K-Dur) 20 meq PO TID [facility] Last Admin: 08/20/17 05:56 Dose: 20 meq Sertraline HCl (Zoloft) 50 mg PO DAILY [facility] Last Admin: 08/20/17 09:10 Dose: 50 mg Sodium Chloride () 5 - 30 ml IV UD PRN PRN Reason: SALINE FLUSH Last Admin: 08/20/17 11:34 Dose: 10 ml Sodium Chloride () 10 ml IV UD PRN PRN Reason: VAD FLUSH Last Admin: 08/19/17 08:07 Dose: 10 ml Vancomycin HCl (Vancomycin 125mg/5ml Susp) 125 mg PO Q6 [facility] Last Admin: 08/20/17 11:33 Dose: 125 mg Code Visit Inpatient E&M: [id number] Subs Hosp L2
--- NOTE | 2017-08-20 12:08 | NURSING ---
mrs hansen notified that pt was returning to half-way.
== END 2017-08-20 12:46 | disposition intermediate care facility (04) | DRG 182 ==
PROVIDERS: Internal Medicine Hematology & Oncology; Admitting Provider Surgery; Family Provider Student in an Organized Health Care Education/Training Program; PCP Student in an Organized Health Care Education/Training Program; Visit Provider Internal Medicine
DX: A04.72 Enterocolitis due to Clostridium difficile, not specified as recurrent (principal); D61.810 Antineoplastic chemotherapy induced pancytopenia; C18.2 Malignant neoplasm of ascending colon; I08.1 Rheumatic disorders of both mitral and tricuspid valves; Z90.49 Acquired absence of other specified parts of digestive tract; E87.6 Hypokalemia; T45.1X5A Adverse effect of antineoplastic and immunosuppressive drugs, initial encounter; I27.20 Pulmonary hypertension, unspecified
CPT/HCPCS: 36415; 74176; 80048; 80053; 83605; 83735; 84132; 85025; 87040; 87493; J7120; A4216

== ENCOUNTER 2021-06-25 16:10 | Outpatient (CLI) | payer MEDICAID, SELFPAY | END 2021-06-25 23:59 | disposition home or self-care (01) | PROVIDERS: PCP Student in an Organized Health Care Education/Training Program; Referring Provider Otolaryngology Otolaryngology/Facial Plastic Surgery; Visit Provider Otolaryngology Otolaryngology/Facial Plastic Surgery | DX: J32.9 Chronic sinusitis, unspecified (principal) | CPT/HCPCS: 87070; 87205 ==